=== PATIENT | male | born 1935 | race Caucasian/White ===

== ENCOUNTER → 2018-01-08 16:15 | Outpatient (CLI) | payer MEDICARE, OTHER, SELFPAY ==
--- NOTE | 2018-01-08 | DI.RAD.S_ITS ---
PROCEDURE: XR CHEST 2V INDICATIONS: COUGH TECHNIQUE: 2 views of the chest were acquired. COMPARISON: [facility], , XR CXR 2 VIEW, 01/07/2004, 14:35. FINDINGS: Surgical changes and devices: None. Lungs and pleura: No pleural effusions or pneumothorax. Scattered scarring and atelectasis bilaterally.. Mildly prominent opacity in the posterior lungs on the lateral view only. Presumed bilateral nipple shadows, left greater than right Mediastinum: Mediastinal contours are normal. Heart size is normal. Bones and chest wall: No suspicious bony abnormalities. Soft tissues appear unremarkable. IMPRESSION: Mild focal opacity in the posterior lung base on the lateral view only which could represent bronchopneumonia although technically nonspecific. If clinically warranted, repeat two-view chest radiographs in one month could be obtained after treatment to document resolution and exclude abnormal soft tissue. Presumed bibasilar nipple shadows although repeat chest radiographs with nipple markers could be obtained to exclude pulmonary nodule. Dictated by: Kale Lira M.D. on 01/08/2018 at 17:21 Approved by: Kale Lira M.D. on 01/08/2018 at 17:24
== END ==
PROVIDERS: Family Provider Family Medicine; PCP Family Medicine; Visit Provider Family Medicine
DX: R05 Cough (principal); J98.4 Other disorders of lung
CPT/HCPCS: 71046

== ENCOUNTER → 2018-03-22 10:28 | Outpatient (CLI) | payer MEDICARE, OTHER, SELFPAY ==
[2018-03-22 12:22] LABS: BUN Creatinine Ratio 16.4 (6-22); Blood Urea Nitrogen 18 mg/dL (9-20); Calcium 8.6 mg/dL (8.4-10.2); Carbon Dioxide 28 mmol/L (22-32); Chloride 102 mmol/L (98-107); Estimated Glomerular Filt Rate > 60.0 mL/min (>60); Glucose 108 mg/dL (80-110); HEMOLYSIS < 15 (0-50); Potassium 4.1 mmol/L (3.4-5.1); Sodium 140 mmol/L (137-145)
== END ==
PROVIDERS: Family Provider Family Medicine; PCP Family Medicine; Visit Provider Internal Medicine Cardiovascular Disease
DX: I48.0 Paroxysmal atrial fibrillation (principal)
CPT/HCPCS: 36415; 80048

== ENCOUNTER → 2018-09-22 09:55 | Outpatient (CLI) | payer MEDICARE, OTHER, SELFPAY ==
--- NOTE | 2018-09-22 09:58 | DI.RAD.S_ITS ---
PROCEDURE: XR CHEST 2V INDICATIONS: cough, congestion TECHNIQUE: 2 views of the chest were acquired. COMPARISON: [facility], CR, XR CHEST 2V, 01/08/2018, 15:55. FINDINGS: Surgical changes and devices: Interval placement of a left-sided cardiac pacer/defibrillator apparatus is evident. Lungs and pleura: Lungs are clear. No pleural effusions or pneumothorax. Mediastinum: Mediastinal contours are normal. Heart size is normal. Bones and chest wall: No suspicious bony abnormalities. Soft tissues appear unremarkable. IMPRESSION: No acute cardiopulmonary process is evident. Dictated by: Wilmar Llamas M.D. on 09/22/2018 at 9:20 Approved by: Wilmar Llamas M.D. on 09/22/2018 at 9:22
== END ==
PROVIDERS: Family Provider Family Medicine; PCP Family Medicine; Visit Provider Physician Assistant
DX: R05 Cough (principal); R09.89 Other specified symptoms and signs involving the circulatory and respiratory systems
CPT/HCPCS: 71046

== ENCOUNTER → 2018-09-26 10:28 | Outpatient (CLI) | payer MEDICARE, OTHER, SELFPAY ==
--- NOTE | 2018-09-26 10:29 | DI.RAD.S_ITS ---
PROCEDURE: XR CHEST 2V INDICATIONS: cough TECHNIQUE: 2 views of the chest were acquired. COMPARISON: [facility], CR, XR CHEST 2V, 09/22/2018, 10:09. FINDINGS: Surgical changes and devices: Left chest wall cardiac device leads are seen in the region of right atrium and right ventricle. Lungs and pleura: There is mild pulmonary vascular congestion. No focal infiltrate. No pleural effusions or pneumothorax. Mediastinum: Mediastinal contours are normal. Heart size is enlarged. Bones and chest wall: No suspicious bony abnormalities. Soft tissues appear unremarkable. IMPRESSION: Cardiomegaly and mild congestion. No focal infiltrate, pleural effusion or pneumothorax. Dictated by: Mandeep Raymundo M.D. on 09/26/2018 at 10:50 Approved by: Mandeep Raymundo M.D. on 09/26/2018 at 10:50
== END ==
PROVIDERS: Family Provider Family Medicine; PCP Family Medicine; Visit Provider Physician Assistant
DX: R05 Cough (principal); I51.7 Cardiomegaly; R09.89 Other specified symptoms and signs involving the circulatory and respiratory systems
CPT/HCPCS: 71046; 83880

== ENCOUNTER → 2018-09-26 11:24 | Outpatient (CLI) | payer MEDICARE, OTHER, SELFPAY ==
[2018-09-26 11:58] LABS: B Type Natriuretic Peptide 355 (<100)
== END ==
PROVIDERS: Family Provider Family Medicine; PCP Family Medicine; Visit Provider Physician Assistant
DX: I51.7 Cardiomegaly (principal)
CPT/HCPCS: 83880

== ENCOUNTER 2018-11-13 08:46 | Day surgery (SDC) | payer MEDICARE, OTHER, SELFPAY ==
[2018-11-13] MEDS: PROPARACAINE 0.5% OPHTH SOL 2 DROPS EYE-OP (09:45)
[2018-11-13] MEDS: CATARACT EYE COMPOUND (10 DROPS/SYRINGE) 3 DROPS EYE-OP ×3 (09:47→10:04)
[2018-11-13 09:51] VITALS: BP 127/75; PULSE 74; RESP 15; TEMP 36.3; O2SAT 95
[2018-11-13 09:55] VITALS: BMI 25.6
--- NOTE | 2018-11-13 10:39 | PM.PREOP ---
Pre-operative Note Interval Note History & Physical reviewed/Exam performed by Physician: No Changes to H&P: No
--- NOTE | 2018-11-13 10:40 | PM.OP.1 ---
Operative Date/Time/Diagnoses Pre-op diagnosis: Nuclear Cataract Left eye Post-op diagnosis: same Procedure & Clinicians Surgeon: Hardik Perla Anesthesia Type: MAC +/- and Sedation Operative Notes Procedure in detail: Patient brought to the operating suite. Tetracaine drops placed in the left eye. Marking instrument was used to dannie the vertical and horizontal meridians. Patient was prepped and draped in sterile manner. Wire lid speculum was placed in the eye. Marking instrument was used to dannie the 150 degree meridian. Betadine drops were placed on the eye. This was irrigated. Lidocaine jelly was placed on the eye. A paracentesis port was created with a side-port blade. 0.1 mL 1% preservative free lidocaine was injected into the anterior chamber. The anterior chamber was deepened with viscoelastic. 2.6 mm keratome was used to create a temporal clear corneal incision. Cystotome and Utrata forceps were used to create continuous tear capsulorrhexis. Balanced salt solution was used to hydro dissect the nucleus. The phacoemulsification handpiece was inserted and the nucleus was removed using the stop and chop technique. The irrigation aspiration handpiece was inserted and the remaining cortex was removed. Anterior chamber was deepened with viscoelastic. An Monique [id number] intraocular lens with a power of 24.0 was injected into the capsular bag. Irrigation aspiration handpiece was inserted and the remaining viscoelastic was removed. The lens was rotated to the 150 degree meridian. Incision was hydrated with balanced salt solution and found to be leak free with pressure with Weck-Maria Luisa sponges. 0.1 mL Vigamox injected anterior chamber. 0.3 mL Kenalog 10 mg was injected subconjunctivally. Lid speculum was removed. The patient left the operating room in excellent condition. Complications: none Condition: stable Disposition: same day surgery
--- NOTE | 2018-11-13 11:19 | SUR.OPER ---
Supine on eye stretcher, head on extension cradle secured with tape. Arms tucked at sides with blanket. Pillow under knees.
[2018-11-13] MEDS: PHENYLEPHRINE/LIDOCAINE VIAL (OR) 0.2 ML EYE-OP (11:20)
[2018-11-13] MEDS: LIDOCAINE JELLY 2% 5 ML 1 APPLIC TOP (11:21)
[2018-11-13] MEDS: MOXIFLOXACIN OPHTH DROPS 3 ML BOTTLE 2 DROPS INJ (11:21)
[2018-11-13] MEDS: TRIAMCINOLONE 50 MG/5 ML VIAL INJ (11:21)
[2018-11-13] MEDS: CHONDROIDTIN/SOD HYALURONATE 1.05 ML SYRINGE INTRAOCULA (11:21)
[2018-11-13] MEDS: TETRACAINE 0.5% OPHTH DROPS 4 ML 2 DROPS EYE-OP (11:22)
[2018-11-13] MEDS: BALANCED SALT IRRIG SOLN NO.2 500 ML, EPINEPHrine 1 MG IRR (11:22)
[2018-11-13 11:36] VITALS: BP 112/73; PULSE 70; RESP 15; TEMP 36.3; O2SAT 96
--- NOTE | 2018-11-13 12:36 | SUR.PHASEII ---
Pt kashia and mildly forgetful. Discharge instructions reviewed with patient and spouse
== END 2018-11-13 11:55 | disposition home or self-care (01) ==
LOC: OR 08:54
PROVIDERS: Family Provider Family Medicine; PCP Family Medicine; Visit Provider Ophthalmology
PROC: (CPT 66984; principal; 2018-11-13 10:45)
DX: H25.12 Age-related nuclear cataract, left eye (principal); I10 Essential (primary) hypertension
CPT/HCPCS: 66984; J0171; J2250; J3301; V2787

== ENCOUNTER → 2018-11-15 10:33 | Outpatient (CLI) | payer MEDICARE, OTHER, SELFPAY ==
[2018-11-15 11:37] LABS: Blood Urea Nitrogen 25 mg/dL (9-20); Calcium 8.8 mg/dL (8.4-10.2); Carbon Dioxide 25 mmol/L (22-32); Chloride 103 mmol/L (98-107); Estimated Glomerular Filt Rate > 60.0 mL/min (>60); Glucose 128 mg/dL (80-110); HEMOLYSIS 16 (0-50); Potassium 4.2 mmol/L (3.4-5.1); Sodium 138 mmol/L (137-145)
== END ==
PROVIDERS: Family Provider Family Medicine; PCP Family Medicine; Visit Provider Internal Medicine Cardiovascular Disease
DX: I51.9 Heart disease, unspecified (principal)
CPT/HCPCS: 36415; 80048

== ENCOUNTER → 2018-12-15 12:28 | Outpatient (CLI) | payer MEDICARE, OTHER, SELFPAY | PROVIDERS: PCP Family Medicine; Visit Provider Family Medicine | DX: R51 Headache (principal); Z53.9 Procedure and treatment not carried out, unspecified reason ==

== ENCOUNTER → 2018-12-21 14:54 | Outpatient (CLI) | payer MEDICARE, OTHER, SELFPAY ==
--- NOTE | 2018-12-21 | DI.CT.S_ITS ---
PROCEDURE: CT HEAD/BRAIN WO/W CON INDICATIONS: Cognitive memory issues. TECHNIQUE: 4.5 mm thick angled axial sections acquired from the foramen magnum to the vertex both before and after the administration of intravenous contrast, with coronal and sagittal reformats. For radiation dose reduction, the following was used: automated exposure control, adjustment of mA and/or kV according to patient size. COMPARISON: [facility], CT, HEAD W&WO CONTRAST, 01/10/2017, 8:47. FINDINGS: Image quality: Excellent. CSF spaces: Basal cisterns are patent. No extra-axial fluid collections. Ventricles are symmetric in size and shape. Brain: No midline shift. No intracranial bleeds or masses. No abnormal intracranial enhancement. There is mild cerebral volume loss for age. There are mild to moderate periventricular white matter chronic small vessel ischemic changes. There is intracranial internal carotid artery atherosclerosis. There is normal contrast enhancement of the major central cerebral vessels. The dural sinuses demonstrate normal postcontrast enhancement. Skull and face: Calvarium and visualized facial bones appear intact, without suspicious lesions. Sinuses: Visualized sinuses are clear. Postsurgical changes compatible with right canal wall up partial mastoidectomy noted. Scattered opacities are noted in the mastoid air cells bilaterally. IMPRESSION: 1. No acute intracranial disease process. 2. No abnormal intracranial mass or suspicious postcontrast enhancement. 3. No areas of acute or chronic infarction. 3. Mild, diffuse cerebral volume loss. 4. Mild to moderate periventricular and subcortical white matter chronic microvascular ischemic change. 5. Scattered bilateral mastoid air cell opacities. Please correlate with direct physical findings to differentiate serous fluid from an inflammatory process. Dictated by: Mishel Villalobos MD, PhD on 12/21/2018 at 16:51 Approved by: Mishel Villalobos MD, PhD on 12/21/2018 at 16:58
[2018-12-21 15:41] LABS: BUN Creatinine Ratio 25.8 (6-22); Blood Urea Nitrogen 31 mg/dL (9-20); Estimated Glomerular Filt Rate 57.7 mL/min (>60)
== END ==
PROVIDERS: PCP Family Medicine; Visit Provider Family Medicine
DX: R41.89 Other symptoms and signs involving cognitive functions and awareness (principal)
CPT/HCPCS: 36415; 70470; 82565; 84520; Q9967

== ENCOUNTER → 2018-12-26 15:55 | Outpatient (CLI) | payer MEDICARE, OTHER, SELFPAY ==
--- NOTE | 2018-12-26 | DI.RAD.S_ITS ---
PROCEDURE: XR LUMBAR SPINE 2-3V INDICATIONS: spine pain TECHNIQUE: 3 views of the lumbar spine were acquired. COMPARISON: None. FINDINGS: Bones: 5 [id number] vertebrae are present. There is normal bony alignment. No vertebral body compression fractures. No suspicious bony lesions. 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 Soft tissues: Overlying bowel gas pattern is normal. No suspicious soft tissue calcifications. IMPRESSION: The spine appears relatively normal over the upper third, shows only a mild degree of degeneration at the middle third and demonstrates mild to moderate degeneration at the lower third where spinal and foraminal stenosis could be present at L5-S1. Dictated by: Joel Torres M.D. on 12/26/2018 at 16:45 Approved by: Joel Torres M.D. on 12/26/2018 at 16:46
== END ==
PROVIDERS: PCP Family Medicine; Visit Provider Family Medicine
DX: M54.9 Dorsalgia, unspecified (principal); M51.37 Other intervertebral disc degeneration, lumbosacral region; M47.817 Spondylosis without myelopathy or radiculopathy, lumbosacral region
CPT/HCPCS: 72100

== ENCOUNTER → 2019-04-04 11:56 | Outpatient (CLI) | payer MEDICARE, OTHER, SELFPAY ==
[2019-04-04 13:44] LABS: Free T3, Triiodothyronine Free 2.94 pg/mL (2.77-5.27); Free T4, Direct Thyroxine 1.11 ng/dL (0.78-2.19)
[2019-04-04 13:57] LABS: Thyroid Stimulating Hormone 2.27 uIU/mL (0.47-4.68)
== END ==
PROVIDERS: PCP Family Medicine; Visit Provider Family Medicine
DX: R89.1 Abnormal level of hormones in specimens from other organs, systems and tissues (principal); E78.00 Pure hypercholesterolemia, unspecified
CPT/HCPCS: 36415; 84439; 84443; 84481

== ENCOUNTER 2020-03-20 09:34 | Emergency (ER) | payer MEDICARE, OTHER, SELFPAY ==
[2020-03-20 09:35] VITALS: BP 176/81; PULSE 69; RESP 15; TEMP 36.7; O2SAT 94; BMI 24.3
[2020-03-20] MEDS: LIDOCAINE 2% (UROJET) 5 ML GEL TOP (10:10)
[2020-03-20 10:28] LABS: Appearance Urine UA CLOUDY; Bacteria Urine None Seen; Bilirubin Urine UA NEGATIVE (NEGATIVE); Color Urine UA YELLOW; Glucose Urine UA NEGATIVE (Negative); Ketones Urine UA NEGATIVE (NEGATIVE); Leukocyte Esterase Urine UA 1+ (NEGATIVE); Nitrite Urine UA NEGATIVE (Negative); Occult Blood Urine UA 3+ (Negative); Protein Urine UA NEGATIVE (Negative); Specific Gravity Urine UA 1.015 (1.000-1.035); Urobilinogen Urine UA 0.2 E.U./dL (0.2)
--- NOTE | 2020-03-20 10:41 | ED_ITS ---
HPI - Male Genitourinary General Chief complaint: Urogenital-Male Stated complaint: prostate problem/clogged up/catherder causing clot Time Seen by Provider: 03/20/20 10:09 Source: patient and family Mode of arrival: Ambulatory Limitations: no limitations History of Present Illness HPI Narrative: This is a 85-year-old male who comes in with difficulty urinating. Patient states he has an enlarged prostate, he saw urology about getting a possible TURP but was recommended to try self catheterization which he has done several times and had increasing numbers of bloody urination and increasing difficulty with urination. With the most recent attempt to last night he was unable to drain his bladder and continued to have some blood clots. Patient does not take any blood thinners. He is on tamsulosin and nitrof urantoin 50 mg daily for several years. He states he was told that he was not a good candidate for a TURP but describes which may be a suprapubic catheter to be placed through the urologist or possibly an ostomy. Patient was had quite a bit of abdominal pain and after having a catheter placed in the emergency department feels significantly better. No fevers, no nausea vomiting, no back or flank pain. His abdominal pain has resolved. He is draining dark bloody urine with no clots present and had put out approximately 1 L into the catheter bag when I evaluated the patient. Patient was on oral antibiotics 3 weeks ago for UTI and had urinary retention at that time. Related Data Home Medications Medication Instructions Recorded Confirmed amlodipine 10 mg tablet 10 mg PO DAILY 09/22/18 09/26/18 nitrofurantoin macrocrystal 50 mg 50 mg PO BEDTIME 09/22/18 09/26/18 capsule oxycodone-acetaminophen 5 mg-325 1 tab PO QID PRN tab 09/22/18 09/26/18 mg tablet sildenafil 100 mg tablet 50 mg PO DAILY PRN tab 09/22/18 09/26/18 tamsulosin 0.4 mg capsule 0.4 mg PO DAILY 09/22/18 09/26/18 testosterone cypionate 200 mg/mL 100 mg IM QWEEK ml 09/22/18 09/26/18 intramuscular oil Previous Rx's Medication Instructions Recorded benzonatate 100 mg capsule 100 mg PO BEDTIME #20 cap 09/26/18 ipratropium 20 mcg-albuterol 100 2 puff INHALATION Q6H #4 gram 09/26/18 mcg/actuation mist for inhalation Allergies Allergy/AdvReac Type Severity Reaction Status Date / Time No Known Drug Allergies Allergy Verified 03/20/20 09:55 Review of Systems Review of Systems ROS Unobtainable: All systems reviewed & are unremarkable except as noted in HPI and below Patient History Medical History Enlarged prostate History of recurrent UTI (urinary tract infection) Hypertension Pacemaker Social History household members: spouse Smoking Status: Former smoker Smoking Status: Former smoker alcohol intake frequency: 0-2 drinks per day Substance Use Type: does not use Exam Narrative Exam Narrative: GENERAL: Alert and oriented x three, well-nourished, well- appearing elderly male in mild distress. Patient was seen after urinary c atheter was placed HEENT: Head normocephalic, atraumatic, EOMI, pupils reactive, face symmetric, moist mucous membranes NECK: Supple, full range of motion CARDIOVASCULAR: Regular rate and rhythm without murmurs, rubs or gallops. RESPIRATORY: Breath sounds equal bilaterally, no wheezes rales or rhonchi. ABDOMEN: Soft, nontender. Normoactive bowel sounds all 4 quadrants. No guarding or rebound, rigidity, no mass : No CVA tenderness, King catheter draining dark urine with a bloody tinge. No large clots are appreciated. EXTREMITIES: Normal range of motion, no clubbing or edema. Neurovascularly intact NEUROLOGICAL: Cranial nerves II through XII grossly intact. Moving all extremities SKIN: Warm, dry, no petechiae, no rashes or lesions. Initial Vital Signs Initial Vital Signs: Vital Signs Temperature 98.0 F 03/20/20 09:35 Pulse Rate 69 03/20/20 09:35 Respiratory Rate 15 03/20/20 09:35 Blood Pressure 176/81 H 03/20/20 09:35 Pulse Oximetry 94 03/20/20 09:35 Course Orders Ordered: ED Orders 03/20/20 10:20 Urinalysis and Microscopic Stat Urine Culture Stat 03/20/20 11:37 Basic Metabolic Panel Stat Complete Blood Count AUTO DIFF Stat Urine Microscopic Stat Discontinued Medications Lidocaine HCl (Lidocaine 2% (Urojet) 5 Ml Gel) 5 ml TOP NOW ONE Stop: 03/20/20 10:02 Last Admin: 03/20/20 10:10 Dose: 5 ml Documented by: SAIGE Vital Signs Vital signs: Vital Signs - 8 hr 03/20/20 12:03 Pulse Rate 84 Respiratory Rate 18 Blood Pressure 160/72 H Pulse Oximetry 94 MDM - Male Genitourinary Lab Data Attestation: I reviewed the patient's lab results. Result diagrams: 03/20/20 11:37 03/20/20 11:37 Labs: Lab Results 03/20/20 03/20/20 03/20/20 Range/Units 10:20 11:37 11:37 WBC 8.9 (4.5-11.0) X10^3/uL RBC 5.33 (4.5-5.9) X10^6/uL Hgb 17.8 H (13.5-17.5) g/dL Hct 52.3 (41-53) % MCV 98.1 (80-100) fL MCH 33.3 (26-34) PG MCHC 34.0 (30-36) % RDW 14.2 (11.6-14.8) % Plt Count 248 (150-400) X10^3/uL Neut % (Auto) 81.6 H (50-75) % Lymph % (Auto) 9.4 L (25-40) % Alexander % (Auto) 8.4 (3-14) % Eos % (Auto) 0.2 L (2-4) % Baso % (Auto) 0.4 (0-2) % Neut # (Auto) 7300 H (2690-3435) /uL Lymph # (Auto) 800 L (5746-1457) /uL Alexander # (Auto) 800 (0-900) /uL Eos # (Auto) 0 (0-450) /uL Baso # (Auto) 0 (0-100) /uL Sodium 135 L (137-145) mmol/L Potassium 4.6 (3.4-5.1) mmol/L Chloride 105 (98-107) mmol/L Carbon Dioxide 25 (22-32) mmol/L BUN 19 (9-20) mg/dL Creatinine 1.06 (0.66-1.25) mg/dL Estimated GFR > 60.0 (>60) mL/min BUN/Creatinine Ratio 17.9 (6-22) Glucose 100 (80-110) mg/dL Calcium 8.5 (8.4-10.2) mg/dL Urine Color Yellow Urine Appearance Cloudy Urine pH 6.0 (4.5-8.0) Ur Specific Otis 1.015 (1.000-1.035) Urine Protein Negative (Negative) Urine Glucose (UA) Negative (Negative) g/dL Urine Ketones Negative (NEGATIVE) Urine Occult Blood 3+ H (Negative) Urine Nitrate Negative (Negative) Urine Bilirubin Negative (NEGATIVE) Urine Urobilinogen 0.2 (0.2) E.U./dL Ur Leukocyte Esterase 1+ H (NEGATIVE) Urine RBC 10-30/hpf H (0-5/HPF) Urine WBC 5-10/hpf H (0-5/HPF) Urine Bacteria None seen (None) Ur Culture Indicated? Specimen cultured 03/20/20 Range/Units 11:37 WBC (4.5-11.0) X10^3/uL RBC (4.5-5.9) X10^6/uL Hgb (13.5-17.5) g/dL Hct (41-53) % MCV (80-100) fL MCH (26-34) PG MCHC (30-36) % RDW (11.6-14.8) % Plt Count (150-400) X10^3/uL Neut % (Auto) (50-75) % Lymph % (Auto) (25-40) % Alexander % (Auto) (3-14) % Eos % (Auto) (2-4) % Baso % (Auto) (0-2) % Neut # (Auto) (2405-0278) /uL Lymph # (Auto) (4988-7362) /uL Alexander # (Auto) (0-900) /uL Eos # (Auto) (0-450) /uL Baso # (Auto) (0-100) /uL Sodium (137-145) mmol/L Potassium (3.4-5.1) mmol/L Chloride (98-107) mmol/L Carbon Dioxide (22-32) mmol/L BUN (9-20) mg/dL Creatinine (0.66-1.25) mg/dL Estimated GFR (>60) mL/min BUN/Creatinine Ratio (6-22) Glucose (80-110) mg/dL Calcium (8.4-10.2) mg/dL Urine Color Urine Appearance Urine pH (4.5-8.0) Ur Specific Otis (1.000-1.035) Urine Protein (Negative) Urine Glucose (UA) (Negative) g/dL Urine Ketones (NEGATIVE) Urine Occult Blood (Negative) Urine Nitrate (Negative) Urine Bilirubin (NEGATIVE) Urine Urobilinogen (0.2) E.U./dL Ur Leukocyte Esterase (NEGATIVE) Urine RBC 30-100/hpf H (0-5/HPF) Urine WBC 10-30/hpf H (0-5/HPF) Urine Bacteria None seen (None) Ur Culture Indicated? Specimen cultured Urine Dip Bedside Urine Glucose Negative Bedside Urine Bilirubin - Negative Bedside Urine Ketone - Negative Urine Specific Otis 1.020 Bedside Urine Occult Blood +++ Bedside Urine pH 6 Bedside Urine Protein +/- 15 Bedside Urine Urobilinogen - Negative Bedside Urine Nitrite - Negative Bedside Urine Leukocytes ++ 125 Esterase MDM Narrative Medical decision making narrative: Patient comes in with urinary retention. King catheter was placed and had significant improvement after L was drained. Labs do not show any major abnormalities urine shows leukocyte esterase but no nitrates and sent for urine culture which is pending and patient and I both discussed and plan to wait for results before starting antibiotics. Discharge Plan Departure Patient Disposition: Home Clinical Impression: Acute urinary retention, Benign prostatic hyperplasia Instructions: How to Care for Your King Catheter -- Male Activity Restrictions/Additional Instructions: Follow-up with your urologist, called today or Monday morning for an appointment. Your serum or blood labs today do not show any major abnormalities other than your hemoglobin being slightly elevated. Continue home medications as prescribed Your urine today shows possible infection, I recommend waiting for urine culture in order to select the most appropriate antibiotic choice. If positive you will receive a phone call. Return to the ER for fevers, lightheadedness, passing out, new or worsening abdominal or flank pain Prescriptions: No Action benzonatate 100 mg capsule 100 mg PO BEDTIME Qty: 20 RF: 0 Combivent Respimat 20-100 mcg/actuation mist 2 puff INHALATION Q6H Qty: 4 RF: 1 nitrofurantoin macrocrystal 50 mg capsule 50 mg PO BEDTIME RF: 0 amlodipine [Norvasc] 10 mg tablet 10 mg PO DAILY RF: 0 tamsulosin 0.4 mg capsule 0.4 mg PO DAILY RF: 0 testosterone cypionate 200 mg/mL oil 100 mg IM QWEEK RF: 0 oxycodone-acetaminophen [Percocet] 5-325 mg tablet 1 tab PO QID PRNRF: 0 sildenafil [Viagra] 100 mg tablet 50 mg PO DAILY PRNRF: 0 Referrals: Fidel Handy MD [Primary Care Provider] -
[2020-03-20 10:42] LABS: Culture Indicated Urine Specimen Cultured; RBC Urine 10-30/HPF (0-5/HPF); WBC Urine 5-10/HPF (0-5/HPF)
[2020-03-20 11:44] LABS: Add Manual Diff / Slide Review NO; Basophils Absolute Auto 0 /uL (0-100); Basophils Percent Auto 0.4 % (0-2); Eosinophils Absolute Auto 0 /uL (0-450); Eosinophils Percent Auto 0.2 % (2-4); Hematocrit 52.3 % (41-53); Hemoglobin 17.8 g/dL (13.5-17.5); Lymphocytes Absolute Auto 800 /uL (1100-4500); Lymphocytes Percent Auto 9.4 % (25-40); Mean Corpuscular Hemoglobin 33.3 PG (26-34); Mean Corpuscular Volume 98.1 fL (80-100); Monocytes Absolute Auto 800 /uL (0-900); Monocytes Percent Auto 8.4 % (3-14); Neutrophils Absolute Auto 7300 /uL (1500-7000); Neutrophils Percent Auto 81.6 % (50-75); Platelet Count 248 X10^3/uL (150-400); Red Blood Cell Count 5.33 X10^6/uL (4.5-5.9); Red Cell Distribution Width 14.2 % (11.6-14.8); White Blood Cell Count 8.9 X10^3/uL (4.5-11.0)
[2020-03-20 11:58] LABS: BUN Creatinine Ratio 17.9 (6-22); Blood Urea Nitrogen 19 mg/dL (9-20); Calcium 8.5 mg/dL (8.4-10.2); Carbon Dioxide 25 mmol/L (22-32); Chloride 105 mmol/L (98-107); Estimated Glomerular Filt Rate > 60.0 mL/min (>60); Glucose 100 mg/dL (80-110); HEMOLYSIS < 15 (0-50); Potassium 4.6 mmol/L (3.4-5.1); Sodium 135 mmol/L (137-145)
[2020-03-20 12:00] LABS: Bacteria Urine None Seen
[2020-03-20 12:03] VITALS: BP 160/72; PULSE 84; RESP 18; O2SAT 94
[2020-03-20 12:11] LABS: Culture Indicated Urine Specimen Cultured; RBC Urine 30-100/HPF (0-5/HPF); WBC Urine 10-30/HPF (0-5/HPF)
--- NOTE | 2020-03-20 12:36 | PC.NURSE ---
dalton bag switched to a leg bag for patient's discharge. instructions given to and patient about dalton care. pt still continues to have blood around his meatus. pt verbalized and demonstrated how to empty cath.
== END 2020-03-20 12:39 | disposition home or self-care (01) ==
PROVIDERS: Emergency Provider Emergency Medicine; PCP Family Medicine
DX: N40.0 Benign prostatic hyperplasia without lower urinary tract symptoms (principal)
CPT/HCPCS: 36415; 51701; 51798; 80048; 81001; 81003; 81015; 85025; 87077; 87086; 87186; 99283

== ENCOUNTER 2020-04-06 14:33 | Emergency (ER) | payer MEDICARE, OTHER, SELFPAY ==
[2020-04-06 14:36] VITALS: BP 171/73; PULSE 73; RESP 20; TEMP 36.4; O2SAT 96
== END 2020-04-06 16:51 | disposition left against medical advice (07) ==
PROVIDERS: Emergency Provider Emergency Medicine; PCP Family Medicine
CPT/HCPCS: 99281

== ENCOUNTER 2020-04-22 07:05 | Inpatient (IN) | payer MEDICARE, OTHER, SELFPAY ==
[2020-04-22] VITALS (24 sets, daily range): BP systolic 102–130; BP diastolic 51–91; PULSE 69–110; RESP 16–20; TEMP 36.3–38; O2SAT 93–97; BMI 25.0
--- NOTE | 2020-04-22 07:15 | DI.RAD.S_ITS ---
PROCEDURE: XR CHEST 1V INDICATIONS: suspected sepsis TECHNIQUE: One view of the chest was acquired. COMPARISON: [facility], CR, XR CHEST 2V, 09/26/2018, 10:37. FINDINGS: Surgical changes and devices: A cardiac pacemaker is seen with pulse generator in the left chest. Lungs and pleura: There is mild prominence of the central pulmonary vasculature. No definite focal airspace opacity is seen. No pleural effusions or pneumothorax. Mediastinum: Mediastinal contours appear normal. Heart size is mildly enlarged. Bones and chest wall: No suspicious bony lesions. Overlying soft tissues appear unremarkable. IMPRESSION: Mild cardiomegaly with prominence of the central pulmonary vasculature may indicate mild congestive heart failure. Dictated by: Pj Reyes M.D. on 04/22/2020 at 8:06 Approved by: Pj Reyes M.D. on 04/22/2020 at 8:10
--- NOTE | 2020-04-22 07:19 | ED_ITS ---
HPI - Weakness General Chief complaint: Weakness Stated complaint: Weakness Time Seen by Provider: 04/22/20 07:13 Source: EMS Mode of arrival: EMS Limitations: no limitations History of Present Illness HPI Narrative: Patient is an 85-year-old male who presents with weakness. He is self cathing multiple times a day he did not want a permanent catheter. He is scheduled to have a prostate surgery soon for BPH. His states that he was in his normal state of health until this morning when she could not get him out of bed. He states he is extremely weak he is having some back pain he felt like his balance was off. He is noted to be febrile in the ED. he denies any cough chest pain dizziness, he has no numbness tingling or unilateral weakness. No speech difficulty or facial droop. MD Complaint: generalized weakness Related Data Home Medications Medication Instructions Recorded Confirmed nitrofurantoin macrocrystal 50 mg 50 mg PO BEDTIME 09/22/18 04/22/20 capsule tamsulosin 0.4 mg capsule 0.4 mg PO DAILY 09/22/18 04/22/20 Allergies Allergy/AdvReac Type Severity Reaction Status Date / Time No Known Drug Allergies Allergy Verified 04/22/20 07:14 Review of Systems Review of Systems ROS Unobtainable: All systems reviewed & are unremarkable except as noted in HPI and below Constitutional Constitutional: Reports fatigue and Reports fever(s) Eyes Eyes: Denies change in vision, Denies eye discharge, Denies irritation and Denies loss of vision ENT Ears, Nose, Mouth, and Throat: Denies change in voice, Denies dizziness, Denies neck pain and Denies sore throat Cardiovascular Cardiovascular: Denies chest pain, Denies chest pain at rest, Denies pedal edema, Denies lightheadedness and Denies dyspnea Respiratory Respiratory: Denies cough and Denies dyspnea Gastrointestinal Gastrointestinal: Denies abdominal pain, Denies change in bowel habits, Denies diarrhea, Denies nausea and Denies vomiting Genitourinary Genitourinary: Reports as per HPI Genitourinary: Reports as per HPI Musculoskeletal Musculoskeletal: Reports back pain, Denies loss of height and Denies neck pain Integumentary/Breasts Skin/Breast: Denies pruritus, Denies erythema, Denies rash and Denies wounds Neurologic Neurologic: Denies dizziness, Reports lack of coordination (balance issue) and Denies loss of vision Endocrine Endocrine: Reports fatigue Patient History Medical History Enlarged prostate History of recurrent UTI (urinary tract infection) Hypertension Pacemaker Social History household members: spouse Smoking Status: Former smoker Smoking Status: Former smoker alcohol intake frequency: 0-2 drinks per day Alcohol type: wine Substance Use Type: does not use Exam Initial Vital Signs Initial Vital Signs: Vital Signs Temperature 100.4 F H 04/22/20 07:12 Pulse Rate 77 04/22/20 07:12 Respiratory Rate 18 04/22/20 07:12 Blood Pressure 124/59 L 04/22/20 07:12 Pulse Oximetry 94 04/22/20 07:12 GENERAL: Alert pleasant 85-year-old male and in no acute distress. HEENT: Head atraumatic,EOMI, pupils reactive, face symmetric, moist mucous membranes CARDIOVASCULAR: Regular rate and rhythm without murmurs, rubs or gallops. RESPIRATORY: Breath sounds equal bilaterally, no wheezes rales or rhonchi. ABDOMEN: Soft, nontender. Normoactive bowel sounds all 4 quadrants. No guarding or rebound. EXTREMITIES: Normal range of motion, no clubbing or edema. Neurovascularly intact NEUROLOGICAL: Alert and oriented x4.Normal gait and speech. Cranial nerves II through XII grossly intact. Good [id number] strength equal bilaterally no dysarthria or dysphasia sensation intact equally and bilaterally SKIN: Warm, dry, no laceration, no petechiae, no rashes or lesions. Scores qSOFA Altered Mental Status (GCS <15): No Respiratory rate greater than/equal to 22: No Systolic blood pressure less than or equal to 100: No qSOFA Total: 0 0-1 Not High Risk 1-3 High risk Course Orders Ordered: ED Orders 04/22/20 08:40 Urinalysis and Microscopic Stat Urine Culture Stat 04/22/20 09:19 EKG-12 Lead Stat Sodium Chloride (Normal Saline 0.9%) 1,000 mls @ 125 mls/hr IV CONT YOJANA Last Infusion: 04/22/20 13:51 Dose: 0 mls/hr Documented by: Admin: 04/22/20 11:07 Dose: 125 mls/hr Documented by: AALIYAH Discontinued Medications Acetaminophen (Acetaminophen 325 Mg Tablet) 975 mg PO NOW ONE Stop: 04/22/20 07:43 Last Admin: 04/22/20 08:25 Dose: 975 mg Documented by: AALIYAH Sodium Chloride (Normal Saline 0.9%) 1,000 mls @ 1,000 mls/hr IV BOLUS ONE Stop: 04/22/20 08:14 Last Infusion: 04/22/20 09:09 Dose: 0 mls/hr Documented by: Admin: 04/22/20 07:27 Dose: 1,000 mls/hr Documented by: AALIYAH Piperacillin/Tazobactam/Dextrose (Zosyn) 3.375 gm in 50 mls @ 100 mls/hr IV NOW ONE Stop: 04/22/20 08:26 Last Infusion: 04/22/20 09:03 Dose: 0 mls/hr Documented by: Admin: 04/22/20 08:25 Dose: 100 mls/hr Documented by: AALIYAH Vancomycin HCl/Dextrose (Vancomycin) 1,500 mg in 300 mls @ 200 mls/hr IV NOW ONE Stop: 04/22/20 09:27 Last Infusion: 04/22/20 10:44 Dose: 0 mls/hr Documented by: Admin: 04/22/20 08:51 Dose: 200 mls/hr Documented by: AALIYAH Vital Signs Vital signs: Vital Signs - 8 hr 04/22/20 09:30 04/22/20 10:00 04/22/20 10:30 Pulse Rate 71 70 70 Respiratory Rate Blood Pressure 108/53 L 106/55 L 102/55 L Pulse Oximetry 94 94 95 04/22/20 11:00 04/22/20 11:30 04/22/20 12:00 Pulse Rate 70 70 70 Respiratory Rate 20 Blood Pressure 102/51 L 107/51 L 105/52 L Pulse Oximetry 94 94 94 04/22/20 12:30 04/22/20 13:00 Pulse Rate 70 70 Respiratory Rate Blood Pressure 109/53 L 104/56 L Pulse Oximetry 94 95 MDM - Weakness Lab Data Attestation: I reviewed the patient's lab results. Result diagrams: 04/22/20 07:17 04/22/20 07:17 Labs: Lab Results 1204/22/20 04/22/20 Range/Units 07:17 07:17 07:17 WBC 19.3 H (4.5-11.0) X10^3/uL RBC 5.04 (4.5-5.9) X10^6/uL Hgb 16.5 (13.5-17.5) g/dL Hct 49.8 (41-53) % MCV 98.9 (80-100) fL MCH 32.7 (26-34) PG MCHC 33.1 (30-36) % RDW 14.5 (11.6-14.8) % Plt Count 235 (150-400) X10^3/uL Neut % (Auto) 95.9 H (50-75) % Lymph % (Auto) 1.0 L (25-40) % [place] % (Auto) 2.7 L (3-14) % Eos % (Auto) 0.0 L (2-4) % Baso % (Auto) 0.4 (0-2) % Neut # (Auto) 77686 H (1632-7732) /uL Lymph # (Auto) 200 L (4015-9026) /uL [place] # (Auto) 500 (0-900) /uL Eos # (Auto) 0 (0-450) /uL Baso # (Auto) 100 (0-100) /uL PT 14.8 H (10.1-12.7) SECONDS INR 1.3 (0.9-1.3) APTT 29 (26.4-36.2) SECONDS Sodium (137-145) mmol/L Potassium (3.4-5.1) mmol/L Chloride (98-107) mmol/L Carbon Dioxide (22-32) mmol/L BUN (9-20) mg/dL Creatinine (0.66-1.25) mg/dL Estimated GFR (>60) mL/min BUN/Creatinine Ratio (6-22) Glucose (80-110) mg/dL Lactate (0.7-2.1) mmol/L Calcium (8.4-10.2) mg/dL Total Bilirubin (0.2-1.3) mg/dL AST (17-59) IU/L ALT (<50) IU/L Alkaline Phosphatase (38-126) U/L Total Creatine Kinase (55-170) U/L CK-MB (CK-2) CK-MB (CK-2) Rel Index Troponin I (0.01-0.034) ng/mL Total Protein (6.3-8.2) g/dL Albumin (3.5-5.0) g/dL Globulin (1.7-4.1) g/dL Albumin/Globulin Ratio (1.0-2.8) Lipase (23-300) U/L Procalcitonin 0.87 H (<0.5) ng/mL Urine Color Urine Appearance Urine pH (4.5-8.0) Ur Specific [place] (1.000-1.035) Urine Protein (Negative) Urine Glucose (UA) (Negative) g/dL Urine Ketones (NEGATIVE) Urine Occult Blood (Negative) Urine Nitrate (Negative) Urine Bilirubin (NEGATIVE) Urine Urobilinogen (0.2) E.U./dL Ur Leukocyte Esterase (NEGATIVE) Urine RBC (0-5/HPF) Urine WBC (0-5/HPF) Urine Bacteria (None) Ur Culture Indicated? COVID-19 PCR (Negative) 04/22/20 04/22/20 04/22/20 Range/Units 07:17 07:17 08:05 WBC (4.5-11.0) X10^3/uL RBC (4.5-5.9) X10^6/uL Hgb (13.5-17.5) g/dL Hct (41-53) % MCV (80-100) fL MCH (26-34) PG MCHC (30-36) % RDW (11.6-14.8) % Plt Count (150-400) X10^3/uL Neut % (Auto) (50-75) % Lymph % (Auto) (25-40) % [place] % (Auto) (3-14) % Eos % (Auto) (2-4) % Baso % (Auto) (0-2) % Neut # (Auto) (9962-3077) /uL Lymph # (Auto) (1533-5053) /uL [place] # (Auto) (0-900) /uL Eos # (Auto) (0-450) /uL Baso # (Auto) (0-100) /uL PT (10.1-12.7) SECONDS INR (0.9-1.3) APTT (26.4-36.2) SECONDS Sodium 134 L (137-145) mmol/L Potassium 4.0 (3.4-5.1) mmol/L Chloride 103 (98-107) mmol/L Carbon Dioxide 25 (22-32) mmol/L BUN 24 H (9-20) mg/dL Creatinine 1.22 (0.66-1.25) mg/dL Estimated GFR 56.3 L (>60) mL/min BUN/Creatinine Ratio 19.7 (6-22) Glucose 163 H (80-110) mg/dL Lactate 3.6 H (0.7-2.1) mmol/L Calcium 8.6 (8.4-10.2) mg/dL Total Bilirubin 1.7 H (0.2-1.3) mg/dL AST 30 (17-59) IU/L ALT 25 (<50) IU/L Alkaline Phosphatase 85 (38-126) U/L Total Creatine Kinase 48 L (55-170) U/L CK-MB (CK-2) TNP CK-MB (CK-2) Rel Index TNP Troponin I 0.042 H (0.01-0.034) ng/mL Total Protein 7.2 (6.3-8.2) g/dL Albumin 3.7 (3.5-5.0) g/dL Globulin 3.5 (1.7-4.1) g/dL Albumin/Globulin Ratio 1.1 (1.0-2.8) Lipase 17 L (23-300) U/L Procalcitonin (<0.5) ng/mL Urine Color Urine Appearance Urine pH (4.5-8.0) Ur Specific [place] (1.000-1.035) Urine Protein (Negative) Urine Glucose (UA) (Negative) g/dL Urine Ketones (NEGATIVE) Urine Occult Blood (Negative) Urine Nitrate (Negative) Urine Bilirubin (NEGATIVE) Urine Urobilinogen (0.2) E.U./dL Ur Leukocyte Esterase (NEGATIVE) Urine RBC (0-5/HPF) Urine WBC (0-5/HPF) Urine Bacteria (None) Ur Culture Indicated? COVID-19 PCR Negative (Negative) 04/22/20 04/22/20 Range/Units 08:40 09:45 WBC (4.5-11.0) X10^3/uL RBC (4.5-5.9) X10^6/uL Hgb (13.5-17.5) g/dL Hct (41-53) % MCV (80-100) fL MCH (26-34) PG MCHC (30-36) % RDW (11.6-14.8) % Plt Count (150-400) X10^3/uL Neut % (Auto) (50-75) % Lymph % (Auto) (25-40) % [place] % (Auto) (3-14) % Eos % (Auto) (2-4) % Baso % (Auto) (0-2) % Neut # (Auto) (9430-0844) /uL Lymph # (Auto) (0499-1631) /uL [place] # (Auto) (0-900) /uL Eos # (Auto) (0-450) /uL Baso # (Auto) (0-100) /uL PT (10.1-12.7) SECONDS INR (0.9-1.3) APTT (26.4-36.2) SECONDS Sodium (137-145) mmol/L Potassium (3.4-5.1) mmol/L Chloride (98-107) mmol/L Carbon Dioxide (22-32) mmol/L BUN (9-20) mg/dL Creatinine (0.66-1.25) mg/dL Estimated GFR (>60) mL/min BUN/Creatinine Ratio (6-22) Glucose (80-110) mg/dL Lactate 1.7 (0.7-2.1) mmol/L Calcium (8.4-10.2) mg/dL Total Bilirubin (0.2-1.3) mg/dL AST (17-59) IU/L ALT (<50) IU/L Alkaline Phosphatase (38-126) U/L Total Creatine Kinase (55-170) U/L CK-MB (CK-2) CK-MB (CK-2) Rel Index Troponin I (0.01-0.034) ng/mL Total Protein (6.3-8.2) g/dL Albumin (3.5-5.0) g/dL Globulin (1.7-4.1) g/dL Albumin/Globulin Ratio (1.0-2.8) Lipase (23-300) U/L Procalcitonin (<0.5) ng/mL Urine Color Yellow Urine Appearance Clear Urine pH 7.0 (4.5-8.0) Ur Specific [place] 1.010 (1.000-1.035) Urine Protein Trace H (Negative) Urine Glucose (UA) Negative (Negative) g/dL Urine Ketones Negative (NEGATIVE) Urine Occult Blood 2+ H (Negative) Urine Nitrate Negative (Negative) Urine Bilirubin Negative (NEGATIVE) Urine Urobilinogen 0.2 (0.2) E.U./dL Ur Leukocyte Esterase 3+ H (NEGATIVE) Urine RBC 5-10/hpf H (0-5/HPF) Urine WBC >100/hpf H (0-5/HPF) Urine Bacteria Many (>30) H (None) Ur Culture Indicated? Specimen cultured COVID-19 PCR (Negative) Urine Dip Bedside Urine Glucose Negative Bedside Urine Bilirubin - Negative Bedside Urine Ketone - Negative Urine Specific [place] 1.010 Bedside Urine Occult Blood ++ Bedside Urine pH 7 Bedside Urine Protein +/- 15 Bedside Urine Urobilinogen - Negative Bedside Urine Nitrite - Negative Bedside Urine Leukocytes ++ 125 Esterase Imaging Data Chest x-ray: Radiologist Impression: PROCEDURE: XR CHEST 1V INDICATIONS: suspected sepsis TECHNIQUE: One view of the chest was acquired. COMPARISON: [facility], , XR CHEST 2V, 09/26/2018, 10:37. FINDINGS: Surgical changes and devices: A cardiac pacemaker is seen with pulse generator in the left chest. Lungs and pleura: There is mild prominence of the central pulmonary vasculature. No definite focal airspace opacity is seen. No pleural effusions or pneumothorax. Mediastinum: Mediastinal contours appear normal. Heart size is mildly enl arged. Bones and chest wall: No suspicious bony lesions. Overlying soft tissues appear unremarkable. IMPRESSION: Mild cardiomegaly with prominence of the central pulmonary vasculature may indicate mild congestive heart failure. Dictated by: Pj Reyes M.D. on 04/22/2020 at 8:06 Approved by: Pj Reyes M.D. on 04/22/2020 at 8:10 CT scan - head: Radiologist Impression: PROCEDURE: CT HEAD/BRAIN WO CON INDICATIONS: confusion TECHNIQUE: Noncontrast 4.5 mm thick angled axial sections acquired from the foramen magnum to the vertex, with coronal and sagittal reformats. For radiation dose reduction, the following was used: automated exposure control, adjustment of mA and/or kV according to patient size. COMPARISON: [facility], CT, HEAD WITHOUT CONTRAST, 06/15/2006, 15:00. FINDINGS: Image quality: Excellent. CSF spaces: Basal cisterns are patent. No extra-axial fluid collections. The ventricles are symmetric in size and shape. Brain: No acute intracranial hemorrhage or mass effect. There is cerebral volume loss for age, with resultant ventricular and sulcal prominence. There are periventricular and deep white matter chronic small vessel ischemic changes. There is intracranial internal carotid artery atherosclerosis. Skull and face: Calvarium and visualized facial bones appear intact, without suspicious lesions. Sinuses: Visualized sinuses and mastoids are clear. IMPRESSION: No acute intracranial abnormality. Chronic senescent changes including chronic microvascular ischemic changes and age related cerebral atrophy. Dictated by: Pj Reyes M.D. on 04/22/2020 at 8:02 ECG Data Attestation: I personally reviewed and interpreted this ECG as follows: Prior ECG tracings: not available for review Interpretation: Paced rhythm with left bundle branch block rate 73 no Sgarbossa's criteria. MDM Narrative Medical decision making narrative: Patient does have leukocytosis elevated procalcitonin and low-grade fever along with elevated lactic acid of 3.6. He does likely have UTI from his frequent self-catheterizations. He is started on vancomycin and Zosyn. Previous culture does show MRSA it was sensitive to vancomycin. He is not hypotensive or tachycardic. He does not meet severe sepsis criteria. He is given IV fluids. Chest x-ray does show some increased congestion. But he does not have any breathing issues [address] Macdonald paged 1:[address] Macdonald returns call, happy to accept patient Discharge Plan Departure Patient Disposition: Admitted As Inpatient Clinical Impression: Acute UTI Admit Date/Time: 04/22/20 13:24 Admit Provider: Piper Macdonald
[2020-04-22] MEDS: SODIUM CHLORIDE 0.9% 1,000 ML 1000 ML IV (07:27)
[2020-04-22 07:37] LABS: Add Manual Diff / Slide Review NO; Basophils Absolute Auto 100 /uL (0-100); Basophils Percent Auto 0.4 % (0-2); Eosinophils Absolute Auto 0 /uL (0-450); Hematocrit 49.8 % (41-53); Hemoglobin 16.5 g/dL (13.5-17.5); Lymphocytes Absolute Auto 200 /uL (1100-4500); Mean Corpuscular HGB Conc 33.1 % (30-36); Mean Corpuscular Hemoglobin 32.7 PG (26-34); Mean Corpuscular Volume 98.9 fL (80-100); Monocytes Absolute Auto 500 /uL (0-900); Monocytes Percent Auto 2.7 % (3-14); Neutrophils Absolute Auto 18500 /uL (1500-7000); Neutrophils Percent Auto 95.9 % (50-75); Platelet Count 235 X10^3/uL (150-400); Red Blood Cell Count 5.04 X10^6/uL (4.5-5.9); Red Cell Distribution Width 14.5 % (11.6-14.8); White Blood Cell Count 19.3 X10^3/uL (4.5-11.0)
[2020-04-22 07:38] LABS: INR 1.3 (0.9-1.3); Prothrombin Time 14.8 SECONDS (10.1-12.7)
[2020-04-22 07:40] LABS: PTT Partial Thromboplastin Tim 29 SECONDS (26.4-36.2)
[2020-04-22 07:44] LABS: Lactate (Lactic Acid) 3.6 mmol/L (0.7-2.1)
[2020-04-22 07:45] LABS: Alanine Aminotransferase 25 IU/L (<50); Albumin 3.7 g/dL (3.5-5.0); Albumin Globulin Ratio 1.1 (1.0-2.8); Alkaline Phosphatase 85 U/L (38-126); Aspartate Aminotransferase 30 IU/L (17-59); BUN Creatinine Ratio 19.7 (6-22); Bilirubin Total 1.7 mg/dL (0.2-1.3); Blood Urea Nitrogen 24 mg/dL (9-20); Calcium 8.6 mg/dL (8.4-10.2); Carbon Dioxide 25 mmol/L (22-32); Chloride 103 mmol/L (98-107); Creatine Kinase 48 U/L (55-170); Estimated Glomerular Filt Rate 56.3 mL/min (>60); Globulin 3.5 g/dL (1.7-4.1); Glucose 163 mg/dL (80-110); HEMOLYSIS 16 (0-50); Lipase 17 U/L (23-300); Sodium 134 mmol/L (137-145); Total Protein 7.2 g/dL (6.3-8.2)
[2020-04-22 07:54] LABS: Troponin I 0.042 ng/mL (0.01-0.034)
--- NOTE | 2020-04-22 07:56 | DI.CT.S_ITS ---
PROCEDURE: CT HEAD/BRAIN WO CON INDICATIONS: confusion TECHNIQUE: Noncontrast 4.5 mm thick angled axial sections acquired from the foramen magnum to the vertex, with coronal and sagittal reformats. For radiation dose reduction, the following was used: automated exposure control, adjustment of mA and/or kV according to patient size. COMPARISON: [facility], CT, HEAD WITHOUT CONTRAST, 06/15/2006, 15:00. FINDINGS: Image quality: Excellent. CSF spaces: Basal cisterns are patent. No extra-axial fluid collections. The ventricles are symmetric in size and shape. Brain: No acute intracranial hemorrhage or mass effect. There is cerebral volume loss for age, with resultant ventricular and sulcal prominence. There are periventricular and deep white matter chronic small vessel ischemic changes. There is intracranial internal carotid artery atherosclerosis. Skull and face: Calvarium and visualized facial bones appear intact, without suspicious lesions. Sinuses: Visualized sinuses and mastoids are clear. IMPRESSION: No acute intracranial abnormality. Chronic senescent changes including chronic microvascular ischemic changes and age related cerebral atrophy. Dictated by: Pj Reyes M.D. on 04/22/2020 at 8:02 Approved by: Pj Reyes M.D. on 04/22/2020 at 8:05
[2020-04-22 07:59] LABS: Procalcitonin 0.87 ng/mL (<0.5)
[2020-04-22] MEDS: ACETAMINOPHEN 325 MG TABLET 975 MG PO (08:25)
[2020-04-22] MEDS: PIPERACILLIN-TAZO 3.375 GM/50 ML FROZ.PIGGY IV ×2 (08:25→19:14)
[2020-04-22 08:31] LABS: COVID19 -Nasal RAPID Negative (Negative)
[2020-04-22] MEDS: VANCOMYCIN 1,500 MG/300 ML PIGGYBACK 200 MG IV (08:51)
[2020-04-22 08:59] LABS: Appearance Urine UA CLEAR; Bilirubin Urine UA NEGATIVE (NEGATIVE); Color Urine UA YELLOW; Glucose Urine UA NEGATIVE (Negative); Ketones Urine UA NEGATIVE (NEGATIVE); Leukocyte Esterase Urine UA 3+ (NEGATIVE); Nitrite Urine UA NEGATIVE (Negative); Occult Blood Urine UA 2+ (Negative); Protein Urine UA TRACE (Negative); Urobilinogen Urine UA 0.2 E.U./dL (0.2)
[2020-04-22 09:16] LABS: Bacteria Urine Many (>30); Culture Indicated Urine Specimen Cultured; RBC Urine 5-10/HPF (0-5/HPF); WBC Urine >100/HPF (0-5/HPF)
[2020-04-22 09:25] LABS: Reflexed Lactate in 2 Hours Y
[2020-04-22 10:06] LABS: Lactate 2HR (Lactic Acid Rflx) 1.7 mmol/L (0.7-2.1)
[2020-04-22] MEDS: SODIUM CHLORIDE 0.9% 1,000 ML 125 ML IV (11:07)
--- NOTE | 2020-04-22 14:54 | PC.NURSE ---
Received from ED. Tired, weak. Admit done by Olive ATKINS. Only wants to sleep at the moment. Allowed to doze in bed for now.
--- NOTE | 2020-04-22 18:13 | PM.HP.1 ---
History of Present Illness History of Present Illness Date Patient Seen: 04/22/20 Time Patient Seen: 18:13 Chief complaint: Weakness Narrative: 85-year-old male is admitted from the ED secondary to acute urinary tract infection with profound weakness. Patient does have benign prostatic hypertrophy with urinary retention and performs self catheterization several times daily to urinate. In the past month, he has been doing this by reusing the same catheter and without sterile technique. He does have a history of chronic urinary tract infections. is present throughout interview and she states that he was in his normal state of health until this morning when she could not get him out of bed. He felt extremely weak and his balance was off. He was also confused. No cough, chest pain, dizziness, nausea, or vomiting. No numbness, tingling, or unilateral weakness. No speech difficulty or facial droop. Vital signs upon presentation to the ED included a temperature of 100.4?, pulse 77, respirations 18, blood pressure 124/59, O2 saturation 94% on room air. Workup significant for an elevated white count at 19.3, procalcitonin at 0.87 and lactic acid of 3.6 that normalized after food/drink to 1.7. Notably, COVID was negative. Chest x-ray showed mild cardiomegaly possibly consistent with mild CHF. EKG was unremarkable. CT head negative. Troponin was slightly elevated at 0.042. Total bilirubin up at 1.7. 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 Patient History Medical History Enlarged prostate History of recurrent UTI (urinary tract infection) Hypertension Pacemaker Family & Social History Social History: household members spouse Prior Living Arrangements House Safety & Behavioral: Feels Safe in Current Yes Environment Been Physically Hurt or No Threatened By a Person Suicidal Ideation Description None Suicide Plan Description No Plan Tobacco & Substance use: Smoking Status Former smoker alcohol intake frequency a few times a week Substance Use Type does not use Meds Home Medications and Allergies Home Medications Medication Instructions Recorded Confirmed Type nitrofurantoin macrocrystal 50 mg 50 mg PO BEDTIME 09/22/18 04/22/20 History capsule tamsulosin 0.4 mg capsule 0.4 mg PO DAILY 09/22/18 04/22/20 History Allergies Allergy/AdvReac Type Severity Reaction Status Date / Time No Known Drug Allergies Allergy Verified 04/22/20 07:14 Review of Systems Review of Systems ROS: Yes All systems reviewed with the patient and are negative except as otherwise documented Exam Vital Signs (past 8 hours): - 04/22/20 10:30 04/22/20 11:00 04/22/20 11:30 Temperature Pulse Rate 70 70 70 Respiratory Rate 20 Blood Pressure 102/55 L 102/51 L 107/51 L Pulse Oximetry 95 94 94 04/22/20 12:00 04/22/20 12:30 04/22/20 13:00 Temperature Pulse Rate 70 70 70 Respiratory Rate Blood Pressure 105/52 L 109/53 L 104/56 L Pulse Oximetry 94 94 95 04/22/20 13:30 04/22/20 13:51 04/22/20 14:52 Temperature 98.5 F 97.8 F Pulse Rate 70 70 Respiratory Rate 16 Blood Pressure 105/53 L 113/55 L Pulse Oximetry 94 95 04/22/20 16:11 Temperature 97.4 F L Pulse Rate 70 Respiratory Rate 18 Blood Pressure 117/91 H Pulse Oximetry 95 Oxygen Delivery Method Room Air Oxygen Flow Rate 0 Narrative Exam Narrative: GENERAL: Alert and oriented, appearing stated age and in no acute distress. HEENT: Head normocephalic/atraumatic. Pupils equal, round, and reactive to light and accomodation. Extraocular muscles intact. Tympanic membranes clear. Nasal mucosa moist, septum midline. Oral mucosa moist, no lesions. Neck soft and supple, no lymphadenopathy. LUNGS: Clear to ausculation bilaterally, no wheezes, rhonchi or rales. CV: Normal S1 and S2 with paced rate and regular rhythm, no audible murmurs, rubs or gallops. ABDOMEN: Soft, non-tender, non-distended, no organomegaly. Positive bowel sounds. : Dalton in place, gross hematuria in tubing. EXTREMITIES: No clubbing, cyanosis, or edema. NEURO: Cranial nerves II through XII grossly intact, no focal deficits. PSYCH: Alert and oriented x 3. SKIN: No concerning lesions. Objective Labs Result Diagrams: 04/22/20 07:17 04/22/20 07:17 Labs: Laboratory Results - last 24 hr 04/22/20 04/22/20 04/22/20 07:17 07:17 07:17 WBC 19.3 H RBC 5.04 Hgb 16.5 Hct 49.8 MCV 98.9 MCH 32.7 MCHC 33.1 RDW 14.5 Plt Count 235 Neut % (Auto) 95.9 H Lymph % (Auto) 1.0 L [place] % (Auto) 2.7 L Eos % (Auto) 0.0 L Baso % (Auto) 0.4 Neut # (Auto) 85533 H Lymph # (Auto) 200 L [place] # (Auto) 500 Eos # (Auto) 0 Baso # (Auto) 100 PT 14.8 H INR 1.3 APTT 29 Sodium Potassium Chloride Carbon Dioxide BUN Creatinine Estimated GFR BUN/Creatinine Ratio Glucose Lactate Calcium Total Bilirubin AST ALT Alkaline Phosphatase Total Creatine Kinase CK-MB (CK-2) CK-MB (CK-2) Rel Index Troponin I Total Protein Albumin Globulin Albumin/Globulin Ratio Lipase Procalcitonin 0.87 H Urine Color Urine Appearance Urine pH Ur Specific [place] Urine Protein Urine Glucose (UA) Urine Ketones Urine Occult Blood Urine Nitrate Urine Bilirubin Urine Urobilinogen Ur Leukocyte Esterase Urine RBC Urine WBC Urine Bacteria Ur Culture Indicated? COVID-19 PCR 04/22/20 04/22/20 04/22/20 07:17 07:17 08:05 WBC RBC Hgb Hct MCV MCH MCHC RDW Plt Count Neut % (Auto) Lymph % (Auto) [place] % (Auto) Eos % (Auto) Baso % (Auto) Neut # (Auto) Lymph # (Auto) [place] # (Auto) Eos # (Auto) Baso # (Auto) PT INR APTT Sodium 134 L Potassium 4.0 Chloride 103 Carbon Dioxide 25 BUN 24 H Creatinine 1.22 Estimated GFR 56.3 L BUN/Creatinine Ratio 19.7 Glucose 163 H Lactate 3.6 H Calcium 8.6 Total Bilirubin 1.7 H AST 30 ALT 25 Alkaline Phosphatase 85 Total Creatine Kinase 48 L CK-MB (CK-2) TNP CK-MB (CK-2) Rel Index TNP Troponin I 0.042 H Total Protein 7.2 Albumin 3.7 Globulin 3.5 Albumin/Globulin Ratio 1.1 Lipase 17 L Procalcitonin Urine Color Urine Appearance Urine pH Ur Specific [place] Urine Protein Urine Glucose (UA) Urine Ketones Urine Occult Blood Urine Nitrate Urine Bilirubin Urine Urobilinogen Ur Leukocyte Esterase Urine RBC Urine WBC Urine Bacteria Ur Culture Indicated? COVID-19 PCR Negative 04/22/20 04/22/20 08:40 09:45 WBC RBC Hgb Hct MCV MCH MCHC RDW Plt Count Neut % (Auto) Lymph % (Auto) [place] % (Auto) Eos % (Auto) Baso % (Auto) Neut # (Auto) Lymph # (Auto) [place] # (Auto) Eos # (Auto) Baso # (Auto) PT INR APTT Sodium Potassium Chloride Carbon Dioxide BUN Creatinine Estimated GFR BUN/Creatinine Ratio Glucose Lactate 1.7 Calcium Total Bilirubin AST ALT Alkaline Phosphatase Total Creatine Kinase CK-MB (CK-2) CK-MB (CK-2) Rel Index Troponin I Total Protein Albumin Globulin Albumin/Globulin Ratio Lipase Procalcitonin Urine Color Yellow Urine Appearance Clear Urine pH 7.0 Ur Specific [place] 1.010 Urine Protein Trace H Urine Glucose (UA) Negative Urine Ketones Negative Urine Occult Blood 2+ H Urine Nitrate Negative Urine Bilirubin Negative Urine Urobilinogen 0.2 Ur Leukocyte Esterase 3+ H Urine RBC 5-10/hpf H Urine WBC >100/hpf H Urine Bacteria Many (>30) H Ur Culture Indicated? Specimen cultured COVID-19 PCR Assessment & Plan Assessment & Plan narrative: 1. Acute UTI, secondary to non-sterile self-catheterizations Plan: Last urine culture dated 03/20/2020 showed MRSA, sensitive to vancomycin. Will continue to treat with Zosyn and vancomycin while awaiting culture results. Chest x-ray showed mild congestion so will be careful with fluids overnight and run labs in the morning. Patient did have 1000 cc bolus in the ED and is drinking fluids. 2. Gross hematuria, acute -Occured after admission and placement of dalton, but delayed by more than 12 hours. Possibly due to traumatic catheterization; however, the patient denies any difficulty with Dalton placement. He did have some minor discomfort but he is very used to catheterization and there was no blood initially. Favor disruption by dalton to his prostate gland vessels while moving in his bed. Could also be due to acute kidney injury, but there was no evidence of this on admission and he does not have chronic kidney disease. Also possibly due to a stone but he is not having pain. Bladder scan showed zero residual and catheter is draining well. Plan: Will keep dalton in place overnight so as not to cause more trauma. May need to remove catheter if thrombus forms in tube and consult urology. 3. Elevated troponin, rule out acute coronary syndrome Plan: Suspect that this is secondary to mild congestion on chest x-ray but will run serial troponins to rule out ACS. 4. Generalized weakness, acute Plan: Likely secondary to acute UTI, treatment as noted in #1. PT to follow. 5. Hypertension, chronic Plan: No home medications for this, will watch closely. 6. Hyperlipidemia, chronic Plan: Diet controlled at home, will not focus on this during this hospitalization. 7. Atrial fibrillation, chronic Plan: Rhythm now paced. Due to fall risk, anticoagulation contraindicated. Telemetry. 8. BPH with urinary obstruction Plan: Please see #2. Otherwise, continue dalton catheter and tamsulosin 0.4 mg p.o. q.day. Follow-up with outpatient Urology, scheduled for prostate surgery within the month. 9. 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 10. Folate deficiency, historical Plan: Will check folate level. 11. Repeated falls, chronic Plan: PT/OT. 12. Increased TSH, historical Plan: TSH update. GI prophylaxis: Protonix DVT prophylaxis: SCDs Code: Full COVID: Negative
[2020-04-22 20:16] LABS: Troponin I 0.026 ng/mL (0.01-0.034)
[2020-04-22] MEDS: VANCOMYCIN 750 MG/150 ML FROZ.PIGGY 150 MG IV (21:29)
[2020-04-22] MEDS: PANTOPRAZOLE 40 MG VIAL 20 MG IV (21:29)
[2020-04-22 22:06] LABS: Vancomycin-rest genes A/B Not Detected (Not Detect)
[2020-04-22 22:07] LABS: Acinetobacter baumannii Not Detected (Not Detect); Candida albicans Not Detected (Not Detect); Candida glabrata Not Detected (Not Detect); Candida krusei Not Detected (Not Detect); Candida parapsilosis Not Detected (Not Detect); Candida tropicalis Not Detected (Not Detect); E. coli Not Detected (Not Detect); Enterobacter cloacae complex Not Detected (Not Detect); Enterobacteriaceae species Not Detected (Not Detect); Enterococcus species Not Detected (Not Detect); Haemophilus influenzae Not Detected (Not Detect); KPC (carbapenem-resist gene) Not Detected (Not Detect); Listeria monocytogenes Not Detected (Not Detect); Methicillin-resistant gene Detected (Not Detect); Neisseria meningitidis Not Detected (Not Detect); Proteus species Not Detected (Not Detect); Pseudomonas aeruginosa Not Detected (Not Detect); Serratia marcescens Not Detected (Not Detect); Staphylococcus species Not Detected (Not Detect); Streptococcus agalactiae (Gr B Not Detected (Not Detect); Streptococcus pneumonia Not Detected (Not Detect); Streptococcus pyogenes (Gr A) Not Detected (Not Detect); Streptococcus species Not Detected (Not Detect)
[2020-04-23] MEDS: PIPERACILLIN-TAZO 3.375 GM/50 ML FROZ.PIGGY IV ×2 (00:17→06:14)
[2020-04-23 06:00] VITALS: BP 130/70; PULSE 70; RESP 16; TEMP 36.4; O2SAT 93
[2020-04-23 06:15] LABS: Add Manual Diff / Slide Review NO; Basophils Absolute Auto 0 /uL (0-100); Basophils Percent Auto 0.3 % (0-2); Eosinophils Absolute Auto 100 /uL (0-450); Eosinophils Percent Auto 0.8 % (2-4); Hematocrit 46.5 % (41-53); Hemoglobin 15.4 g/dL (13.5-17.5); Lymphocytes Absolute Auto 900 /uL (1100-4500); Lymphocytes Percent Auto 5.9 % (25-40); Mean Corpuscular Hemoglobin 32.9 PG (26-34); Mean Corpuscular Volume 99.7 fL (80-100); Monocytes Absolute Auto 700 /uL (0-900); Monocytes Percent Auto 4.6 % (3-14); Neutrophils Absolute Auto 13200 /uL (1500-7000); Neutrophils Percent Auto 88.4 % (50-75); Platelet Count 173 X10^3/uL (150-400); Red Blood Cell Count 4.67 X10^6/uL (4.5-5.9); Red Cell Distribution Width 14.9 % (11.6-14.8); White Blood Cell Count 14.9 X10^3/uL (4.5-11.0)
[2020-04-23 06:25] LABS: BUN Creatinine Ratio 24.8 (6-22); Blood Urea Nitrogen 34 mg/dL (9-20); Calcium 7.8 mg/dL (8.4-10.2); Carbon Dioxide 28 mmol/L (22-32); Chloride 104 mmol/L (98-107); Estimated Glomerular Filt Rate 49.3 mL/min (>60); Glucose 97 mg/dL (80-110); HEMOLYSIS < 15 (0-50); Potassium 3.7 mmol/L (3.4-5.1); Sodium 136 mmol/L (137-145)
[2020-04-23 06:34] LABS: NT-proBNP (BNP-Adult 18+) 9620 pg/mL (<450)
[2020-04-23 06:59] LABS: TSH w/ Reflex to FT4 2.39 uIU/mL (0.47-4.68)
[2020-04-23 07:30] LABS: Folate 3.7 ng/mL (2.76-20.0)
--- NOTE | 2020-04-23 08:23 | DI.ECHO.S_ITS ---
[place]---------+ [facility] +---------+ : : [address] : : : : [id number] : : : : Phone: [phone]+ Echocardiogram Report + + :Name: SARI MATTSON Study Date: 04/23/2020 Height: 74 in : :[facility] Weight: 194 lb : : Gender: Male BSA: 2.1 m2 : :: 1935 Age: 85 yrs BP: 107/59 mmHg: :Reason For Study: ELEVATED BNP, SEPSIS : :Ordering Physician: ALEXA, : :NATALY Performed By: Hilda Morrison : :Referring: NATALY LIU : + + Interpretation Summary 1) Severely enlarged left ventricle with severely reduced systolic function (EF 20-25%). 2) The inferior wall is akinetic. Severe global hypokinesis. The apex has dyssynchronous contraction patter due to the paced rhythm. 3) The right ventricle is normal in size and function. There is a pacemaker lead in the right ventricle. 4) There is moderate aortic regurgitation. 5) The ascending aorta is mildly enlarged at 4.2cm. 6) No prior Echo available for comparison. Procedure: A two-dimensional transthoracic echocardiogram with color flow and Doppler was performed. The study quality was technically adequate. There is no prior echocardiogram noted for this patient. The patient has a paced rhythm. The heart rate ranged between 70-71 bpm during the study. Left Ventricle: The left ventricle is severely dilated. The ejection fraction is estimated to be 20-25%. There is a significant dyssynchronous contraction pattern due to the paced rhythm. The inferior wall is akinetic. Severe global hypokinesis. The apex has dyssynchronous contraction patter due to the paced rhythm. Diastolic function could not be accurately assessed due to paced rhythm. Right Ventricle: The right ventricle is normal in size and function. There is a pacemaker lead in the right ventricle. Atria: The left atrium is mildly dilated. Right atrial size is normal. There is no Doppler evidence for an interatrial shunt. Mitral Valve: The mitral valve leaflets are mildly calcified. There is mild mitral annular calcification. There is mild mitral regurgitation. Aortic Valve: The aortic valve is trileaflet. The aortic valve opens well. The aortic valve is slightly calcified. There is no aortic valve stenosis. There is moderate aortic regurgitation. Tricuspid Valve: The tricuspid valve is normal in structure and function. The right ventricular systolic pressure is estimated to be at least 21 mmHg based on an estimated right atrial pressure of 3 mm Hg. There is mild tricuspid regurgitation. Pulmonic Valve: The pulmonic valve leaflets are thin and pliable; valve motion is normal. There is no pulmonic valvular regurgitation. Great Vessels: The aortic root is normal size. The ascending aorta is mildly enlarged. The IVC is of normal diameter and collapses greater than 50% with a sniff. This suggests a low right atrial pressure of 3 mm Hg. Pericardium/ Pleura There is no pericardial effusion. There is no pleural effusion. MMode/2D Measurements & Calculations LVIDd: 6.0 cm LVOT diam: 2.3 cm LVIDs: 5.2 cm Ao root diam: 3.6 cm FS: 13.5 % asc Aorta Diam: 4.2 cm EPSS: 2.4 cm Ao Arch Diam (Prox Trans): 3.2 cm IVSd: 1.3 cm LVPWd: 1.5 cm LV webster. diameter/BSA (cm/m^2): 2.8 LV sys. diameter/BSA (cm/m^2): 2.4 LA A2 area: 33.2 cm2 RA long axis: 5.0 cm LA A4 area: 14.8 cm2 RA area: 14.6 cm2 LA length (vol): 4.6 cm RA vol: 36.1 ml LA vol: 91.5 ml RA : 16.8 ml/m2 LA vol index: 42.7 ml/m2 IVC diam: 1.5 cm RVD1 (basal): 3.5 cm TAPSE: 2.0 cm Doppler Measurements & Calculations Ao V2 max: 141.7 cm/sec LVOT Max Gómez: 85.5 cm/sec Ao V2 mean: 98.4 cm/sec LV V1 max P.9 mmHg Ao max P.0 mmHg LV V1 VTI: 15.1 cm Ao mean P.3 mmHg ALEX(I,D): 2.2 cm2 Ao V2 VTI: 27.7 cm ALEX(V,D): 2.5 cm2 sev ratio: 0.55 ALEX indexed to BSA (cm^2/m^2): 1.0 AI P1/2t: 623.0 msec AI dec slope: 196.1 cm/sec2 MV E max gómez: 97.7 cm/sec TR max gómez: 210.0 cm/sec MV A max gómez: 0.97 cm/sec TR max P.6 mmHg MV E/A: 100.3 PA V2 max: 56.9 cm/sec Med Peak E' Gómez: 8.2 cm/sec PA V2 mean: 33.9 cm/sec E/E' med: 11.9 PA mean P.57 mmHg Lat Peak E' Gómez: 10.2 cm/sec PA pr(Accel): 25.9 mmHg E/E' lat: 9.6 E/e' average: 10.7 MV dec time: 0.13 sec SV(LVOT): 61.7 ml Reading Physician:01:11 PM
--- NOTE | 2020-04-23 08:24 | PM.PN.1 ---
Subjective Subjective Date Patient Seen: 04/23/20 Time Patient Seen: 08:25 Interval history: Patient feeling better today. Having no chest pain. No dyspnea. No cough. Feeling more himself. No headaches visual changes or other complaints. No abdominal pain. Catheter is been running more clear. Still has some blood. Otherwise no change. Exam Vital Signs (past 8 hours): - 04/23/20 06:00 Temperature 97.6 F Pulse Rate 70 Respiratory Rate 16 Blood Pressure 130/70 Pulse Oximetry 93 Oxygen Delivery Method Room Air Oxygen Flow Rate 0 Narrative Exam Narrative: Alert elderly male sitting in bed mildly fatigued no acute distress. Mucous membranes mildly dry. Neck supple without adenopathy. No JVD no bruits. Lungs appear clear to me. Heart regular rate and rhythm without murmurs clicks rubs or gallops. Abdomen is soft positive bowel sounds nontender extremities without cyanosis clubbing edema. Neurologic exam was nonfocal. Psychologically interactive appropriate Objective Labs Result Diagrams: 04/23/20 06:00 04/23/20 06:00 Labs: Laboratory Results - last 24 hr 04/22/20 04/22/20 04/22/20 07:17 08:05 08:40 WBC RBC Hgb Hct MCV MCH MCHC RDW Plt Count Neut % (Auto) Lymph % (Auto) [place] % (Auto) Eos % (Auto) Baso % (Auto) Neut # (Auto) Lymph # (Auto) [place] # (Auto) Eos # (Auto) Baso # (Auto) Sodium Potassium Chloride Carbon Dioxide BUN Creatinine Estimated GFR BUN/Creatinine Ratio Glucose Lactate Calcium Troponin I NT-Pro-B Natriuret Pep Folate TSH Urine Color Yellow Urine Appearance Clear Urine pH 7.0 Ur Specific [place] 1.010 Urine Protein Trace H Urine Glucose (UA) Negative Urine Ketones Negative Urine Occult Blood 2+ H Urine Nitrate Negative Urine Bilirubin Negative Urine Urobilinogen 0.2 Ur Leukocyte Esterase 3+ H Urine RBC 5-10/hpf H Urine WBC >100/hpf H Urine Bacteria Many (>30) H Ur Culture Indicated? Specimen cultured A. baumannii (PCR) Not detected Yahaira albicans (PCR) Not detected C. glabrata (PCR) Not detected C. krusei (PCR) Not detected C. parapsilosis (PCR) Not detected C. tropicalis (PCR) Not detected COVID-19 PCR Negative Enterobacteriac sp PCR Not detected E. cloacae complex PCR Not detected Enterococcus sp PCR Not detected E. coli (PCR) Not detected H. influenzae (PCR) Not detected Klebsiella oxytoca PCR Not detected Klebsiella pneumoniae Not detected List. monocytogenes PCR Not detected N. meningitidis (PCR) Not detected Proteus species (PCR) Not detected Serratia marcescens PCR Not detected Staphylococcus sp PCR Not detected Staph aureus (PCR) Detected H mecA-Methicil Res Gene Detected H Streptococcus sp PCR Not detected Group A Strep (PCR) Not detected Strep agalactiae (PCR) Not detected Strep pneumoniae (PCR) Not detected P. aeruginosa (PCR) Not detected Nicolas/B-Vanco Res Genes Not detected KPC-Carbap Res Gene PCR Not detected 04/22/20 04/22/20 04/23/20 09:45 19:45 06:00 WBC 14.9 H RBC 4.67 Hgb 15.4 Hct 46.5 MCV 99.7 MCH 32.9 MCHC 33.0 RDW 14.9 H Plt Count 173 Neut % (Auto) 88.4 H Lymph % (Auto) 5.9 L [place] % (Auto) 4.6 Eos % (Auto) 0.8 L Baso % (Auto) 0.3 Neut # (Auto) 18562 H Lymph # (Auto) 900 L [place] # (Auto) 700 Eos # (Auto) 100 Baso # (Auto) 0 Sodium Potassium Chloride Carbon Dioxide BUN Creatinine Estimated GFR BUN/Creatinine Ratio Glucose Lactate 1.7 Calcium Troponin I 0.026 NT-Pro-B Natriuret Pep Folate TSH Urine Color Urine Appearance Urine pH Ur Specific [place] Urine Protein Urine Glucose (UA) Urine Ketones Urine Occult Blood Urine Nitrate Urine Bilirubin Urine Urobilinogen Ur Leukocyte Esterase Urine RBC Urine WBC Urine Bacteria Ur Culture Indicated? A. baumannii (PCR) Yahaira albicans (PCR) C. glabrata (PCR) C. krusei (PCR) C. parapsilosis (PCR) C. tropicalis (PCR) COVID-19 PCR Enterobacteriac sp PCR E. cloacae complex PCR Enterococcus sp PCR E. coli (PCR) H. influenzae (PCR) Klebsiella oxytoca PCR Klebsiella pneumoniae List. monocytogenes PCR N. meningitidis (PCR) Proteus species (PCR) Serratia marcescens PCR Staphylococcus sp PCR Staph aureus (PCR) mecA-Methicil Res Gene Streptococcus sp PCR Group A Strep (PCR) Strep agalactiae (PCR) Strep pneumoniae (PCR) P. aeruginosa (PCR) Nicolas/B-Vanco Res Genes KPC-Carbap Res Gene PCR 04/23/20 04/23/20 06:00 06:00 WBC RBC Hgb Hct MCV MCH MCHC RDW Plt Count Neut % (Auto) Lymph % (Auto) [place] % (Auto) Eos % (Auto) Baso % (Auto) Neut # (Auto) Lymph # (Auto) [place] # (Auto) Eos # (Auto) Baso # (Auto) Sodium 136 L Potassium 3.7 Chloride 104 Carbon Dioxide 28 BUN 34 H Creatinine 1.37 H Estimated GFR 49.3 L BUN/Creatinine Ratio 24.8 H Glucose 97 Lactate Calcium 7.8 L Troponin I NT-Pro-B Natriuret Pep 9620 H Folate 3.7 TSH 2.39 Urine Color Urine Appearance Urine pH Ur Specific [place] Urine Protein Urine Glucose (UA) Urine Ketones Urine Occult Blood Urine Nitrate Urine Bilirubin Urine Urobilinogen Ur Leukocyte Esterase Urine RBC Urine WBC Urine Bacteria Ur Culture Indicated? A. baumannii (PCR) [place] albicans (PCR) C. glabrata (PCR) C. krusei (PCR) C. parapsilosis (PCR) C. tropicalis (PCR) COVID-19 PCR Enterobacteriac sp PCR E. cloacae complex PCR Enterococcus sp PCR E. coli (PCR) H. influenzae (PCR) Klebsiella oxytoca PCR Klebsiella pneumoniae List. monocytogenes PCR N. meningitidis (PCR) Proteus species (PCR) Serratia marcescens PCR Staphylococcus sp PCR Staph aureus (PCR) mecA-Methicil Res Gene Streptococcus sp PCR Group A Strep (PCR) Strep agalactiae (PCR) Strep pneumoniae (PCR) P. aeruginosa (PCR) Nicolas/B-Vanco Res Genes KPC-Carbap Res Gene PCR PFSH Medical History Enlarged prostate History of recurrent UTI (urinary tract infection) Hypertension Pacemaker Social History household members: spouse Smoking Status: Former smoker Assessment & Plan Assessment & Plan narrative: Urosepsis. Positive blood cultures with mental status changes which are now improved and probable cardiac injury secondary to sepsis. Improved. White count is decreased. Vital signs of improved. Culture is MRSA. Probably secondary from his urine. And for technique with catheterization. Will discontinue piperacillin and continue Vanco. Will need several days of treatment. Will see what culture finally decides. Follow from there. Certainly will need 3 or 4 days of inpatient treatment. No other changes. Will follow. Gross hematuria. Probably secondary to catheterization. Seems to be improving. Will follow. Could be related to infection also. Responding to treatment will follow. Elevated troponin suspect secondary to demand ischemia. Seems to be much improved last number was normal. Do not believe this is the myocardial infarction. Acute renal failure. I think he is probably still a little dry. Is difficult with his elevated BNP. Chest x-ray showed some congestion exam today does not show significant change will gently hydrate and follow recheck in a.m.. Elevated BNP. Will obtain echo with troponin increase may show some abnormality will have to follow. I still think he is a little bit fluid down but will have to consider Lasix depending on how he does. Generalized weakness. Will start physical therapy tomorrow. Follow from there. BPH. At this point will continue catheterization. May need to continue until he is seen for TURP but will see how things go. Will discuss with urologist. Certainly will keep it in for the next several days. Hypertension. Stable. Will follow. Atrial fibrillation stable. Will follow. History of bradycardia with pacemaker. Stable. GI prophylaxis on propofol tonics. Code status full. COVID negative. DVT prophylaxis SCDs. Disposition. Will be here for a couple more days. Will see how things go.
[2020-04-23] MEDS: SODIUM CHLORIDE 0.9% 1,000 ML 100 ML IV ×2 (08:58→19:15)
[2020-04-23] MEDS: VANCOMYCIN 750 MG/150 ML FROZ.PIGGY 150 MG IV ×2 (09:16→21:00)
[2020-04-23] MEDS: TAMSULOSIN 0.4 MG CAPSULE PO (09:16)
[2020-04-23] MEDS: PANTOPRAZOLE 40 MG VIAL 20 MG IV ×2 (09:16→20:59)
[2020-04-23 09:41] VITALS: BP 107/54; PULSE 70; RESP 16; TEMP 36.6; O2SAT 97
--- NOTE | 2020-04-23 11:02 | OT.IP.EVAL ---
Current Diagnoses Urinary tract infection, site not specified (04/22/20) Past Medical History (Last Reviewed 04/22/20 @ 08:52 by Sri Mckeon DO) Enlarged prostate History of recurrent UTI (urinary tract infection) Hypertension Pacemaker Occupational Therapy Inpatient Evaluation/Re-Eval M1 PT/OT-IP Prior Functional Status Start: 04/23/20 12:19 Freq: NEEDED Status: Active Protocol: Document 04/23/20 12:19 CGR (Rec: 04/23/20 12:58 CGR [id number]) Medical Review Prior Functional Status Medical History Reviewed Yes Communication Pt is an effective verbal communicator but is [place]. Mobility and Gait Pt was IND at baseline without AD Activities of Daily Living and IADL's Pt was IND at baseline without AD Social History Household Members spouse Living Arrangements House Number of Floors (Floors) One Floor Number of Stairs To Enter/Railing? Pt has 1 step to enter with a brick fence at the step to hold onto. 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 M2 OT-IP Current Condition Start: 04/23/20 12:19 Freq: Status: Active Protocol: Document 04/23/20 12:19 CGR (Rec: 04/23/20 12:58 CGR [id number]) Occupational Therapy Current Condition Current Condition Evaluation Date 04/23/20 Treatment Diagnosis Generalized weakness, UTI Diagnosis Onset Date 04/22/20 M3 OT- IP Subjective and Pain Start: 04/23/20 12:19 Freq: Status: Active Protocol: Document 04/23/20 12:19 CGR (Rec: 04/23/20 12:58 CGR [id number]) OT- Subjective Occupational Therapy Visit Type Type Initial Evaluation Visit Start Time 10:35 Visit Stop Time 11:02 Total Visit Minutes 27 Notes Pt's present throughout. OT Pain Assessment Pain When Pain Assessed At Rest Pain Present Pain Present Denied Pain M4 OT- IP ADL's Start: 04/23/20 12:19 Freq: Status: Active Protocol: Document 04/23/20 12:19 CGR (Rec: 04/23/20 12:58 CGR [id number]) OT [id number] Comments OT Self-Feeding Comments Not meal time OT ADL-Grooming Comments OT Grooming Comments Pt declined, already perform today. OT ADL-Oral Care Comments Oral Care Comments Pt declined, already perform today. OT ADL-Dressing General Eval Lower Body Dressing Ability Independent Areas Needing Assistance Socks Comments OT Dressing Comments seated EOB OT ADL-Toileting General Evaluation Toileting Ability Standby Assistance Devices Toileting Assistive Devices Grab Bars Comments OT Toileting Comments simulated seated on toielt with use of GB. Pt currently with dalton. OT ADL-Bathing Comments OT Bathing Comments Not performed M5 OT- IP IADL's Start: 04/23/20 12:19 Freq: Status: Active Protocol: Document 04/23/20 12:19 CGR (Rec: 04/23/20 12:58 CGR [id number]) OT-Instrumental Activities of Daily Living Deficits IADL Deficits Identified No Deficits Home Safety Awareness Awareness of Need for Assistance at Home Good Awareness Ability to Problem Solve Emergency Able to Problem Solve Situations Medication Management Medication Management No Deficits Identified Money Management Money Management No Deficits Identified Meal Preparation Meal Preparation Caregiver Provides Assist Automation Application Engineer Automation Application Engineer Caregiver Provides Assist Driving Driving Comments 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 M6 OT- IP Functional Cognition Start: 04/23/20 12:19 Freq: Status: Active Protocol: Document 04/23/20 12:19 CGR (Rec: 04/23/20 12:58 CGR [id number]) Cognitive Factors Limiting Selfcare Function Cognitive Ability Level of Alertness Alert Patient Orientation Name,Age,Birthday,Month,Date, Year,Day of Week,Place, Situation Attention Span Ability Capable of Focused Attention, Capable of Sustained Attention Ability to Follow Commands Able to Follow One Step Commands with Increased Time, Able to Follow One Step Commands with Repetition Memory Description No Deficits Noted Safety Awareness No Deficits Noted Cognitive Comments Cognitive Assessment Comments Pt appears to be at his baseline at this time. OT- Vision and Hearing OT- Hearing Assessment OT- Hearing Assessment Hearing Impaired,Use of Hearing Aids OT- Vision Assessment Visual Acuity Glasses For Reading Visual Attentiveness WFL Occular Pursuits WFL Visual Convergence WFL Vision Assessment Comments Occular pursuits were slow but WFL M7 OT- IP Mobility and Balance Start: 04/23/20 12:19 Freq: Status: Active Protocol: Document 04/23/20 12:19 CGR (Rec: 04/23/20 12:58 CGR [id number]) OT- Bed Mobility Assessment Rolling Type of Rolling Roll to Right Level of Assistance Standby Assistance Supine to Sit Supine to Sit Assist Standby Assistance Sit to Supine Sit to Supine Assist Standby Assistance Scooting Scooting to Edge of Bed Standby Assistance OT-Transfer Assessment Sit to and From Stand Sit to and from Stand Contact Guard Assistance Transfers Transfer Ability Contact Guard Assistance Technique Transfer Destination Bed,Chair,Toilet Transfer Technique Stand Step Pivot Devices Transfer Assistive Devices Gait Belt,Front Wheeled Walker Comments Mobility Comments Pt requested to use the walker for mobility. Pt ambulated around the room and into the bathroom. OT- Gait Assessment Gait Gait Assistance Required: Contact Guard Assist Assistive Devices Assistive Device Gait Belt,Front Wheeled Walker Comments Gait Ability Comments Mobility around the room. OT- Balance Assessment Sitting Balance and Reactions Static Sitting Balance Ability Normal Dynamic Sitting Balance Ability Good M8 OT- IP Objective Assessments Start: 04/23/20 12:19 Freq: Status: Active Protocol: Document 04/23/20 12:19 CGR (Rec: 04/23/20 12:58 CGR [id number]) OT Gross Range of Motion Upper Extremity Range of Motion Assessment Within Functional Limits OT Strength Upper Extremity Strength Assessment Within Functional Limits Comments Strength Comments grossly 4+/5 OT- Coordination Assessment Comments Coordination Comments Noted poor coordination with simple thumb to finger activites. Will continue to follow. OT-Muscle Tone Assessment Muscle Tone WNL Yes OT Sensation Assessment Edema Edema Absent M9 OT- IP Assessment and Plan Start: 04/23/20 12:19 Freq: Status: Active Protocol: Document 04/23/20 12:19 CGR (Rec: 04/23/20 12:58 CGR [id number]) OT Summary Assessment and Plan Potential Rehabilitation Potential Excellent Analytic Complexity at Evaluation Low Summary OT Impairments Coordination,Functional Mobility,Grooming,Dressing, Toileting,Bathing,Toilet Transfers,Shower Transfers, Activity Tolerance Progress Towards Goals Progressing Toward Goals,Slow Progress due to Activity Tolerance Assessment Summary Pt presents as a low complexity evaluation s/p admit for generalized weakness and UTI. Minimal session performed d/t pt appeared diaphoretic with mobility and pt declined simple ADLs. Pt appears to be close to his baseline of IND. Will follow up for 1-2 more sessions for shower training and increased endurance. Pt is likely to be safe for discharge home with family. Goals Grooming Goal Independent Dressing Goal Independent Toileting Goal Independent Bathing Goal Independent Toilet Transfer Goal Independent Shower Transfer Goal Independent Days to Meet Goals 2 Frequency of Treatment Frequency Of Treatment Once a Day Treatment Plan OT Treatment Plan ADL Training,Patient/Family Education,Discharge Planning Other Treatment Recommendations and Next shower Treatment Focus Discharge Recommendations OT Discharge Recommendations Home with Assistance Other Discharge Recommendations grab bars for home bath. Transportation Needs at Discharge Private Vehicle
--- NOTE | 2020-04-23 11:56 | CM.IDA ---
Initial DCP Assessment Note Pt is an 85 yo male, resident of [place]. Patient admitted for medical management of urosepsis, length of stay expected to be at least another 24-72 hrs. Patient self catheterizes at home PCP: Fidel Handy Payer: VIVIENNE/[employer] Reviewed chart and then spoke w/CJ, OT, to coordinate DC planning efforts. Patient indp and active at baseline, supportive spouse Ashlee same and at bedside this morning. No h/o HH or SNF Therapy has cleared pt for return home w/family to assist and pt has planned for home. No needs expected from DC planning team although will remain available in case this changes before medical DC; r/o need for HH closer to [place]. DEBBI Mckeon Discharge Planning/Care Management Advanced directive, confirm from FAMILY Start: 04/22/20 14:20 Freq: Q24H Status: Active Protocol: Document 04/22/20 18:18 AKP (Rec: 04/22/20 18:32 AKP [id number]) Advance Directive, confirm on record Time 18:18 Person contacted Copy received No CM Discharge Assessment Start: 04/23/20 11:46 Freq: Status: Active Protocol: Document 04/23/20 11:46 BASSEM (Rec: 04/23/20 11:55 [id number]) Discharge Planning Assessment Assigned Yard Attendant DEBBI Barone DPOA/Assigned Designee Name Ashlee Whyte, spouse Contact Information [phone] Advance Directives? Yes History Provided By Patient,Significant Other Prior Living Arrangements House Household Members spouse Independent with ADL's Yes Is patient alert and oriented? Yes Caregiver for Another No Comment r/o need for HH closer to [place] Barriers to Discharge No Discharge Plan Home Transportation Arrangement Spouse, family Referrals Initiated None needed Additional Comment At this time
--- NOTE | 2020-04-23 12:10 | PT.IIE ---
Current Diagnoses Urinary tract infection, site not specified (04/22/20) Medical History (Last Reviewed 04/22/20 @ 08:52 by Sri Mckeon DO) Enlarged prostate History of recurrent UTI (urinary tract infection) Hypertension Pacemaker Physical Therapy Inpatient Evaluation/Re-Eval M1 PT/OT-IP Prior Functional Status Start: 04/23/20 12:19 Freq: NEEDED Status: Active Protocol: Document 04/23/20 12:19 CGR (Rec: 04/23/20 12:58 CGR [id number]) Medical Review Prior Functional Status Medical History Reviewed Yes Communication Pt is an effective verbal communicator but is [place]. Mobility and Gait Pt was IND at baseline without AD Activities of Daily Living and IADL's Pt was IND at baseline without AD Social History Household Members spouse Living Arrangements House Number of Floors (Floors) One Floor Number of Stairs To Enter/Railing? Pt has 1 step to enter with a brick fence at the step to hold onto. 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 M2 PT-IP Current Condition Start: 04/23/20 08:43 Freq: NEEDED Status: Active Protocol: Document 04/23/20 12:08 AW (Rec: 04/23/20 12:38 AW [id number]) Physical Therapy Current Condition Current Condition Evaluation Date 04/23/20 Treatment Diagnosis urosepsis; generalized weakness; difficulty in walking Onset Date 04/21/20 Precautions Other Precautions contact precautions in place at time of eval M3 PT-IP Subjective Start: 04/23/20 08:43 Freq: NEEDED Status: Active Protocol: Document 04/23/20 12:08 AW (Rec: 04/23/20 12:38 AW [id number]) Subjective Physical Therapy Visit Type Type Initial Evaluation Visit Start Time 11:50 Visit Stop Time 12:08 Total Visit Minutes 18 Notes Pt's spouse, Ashlee, arrived toward end of session. Physical Therapy Visit Comments Patient Comments I've had a busy morning but I can get up again. Patient Goals I want my energy back so I can go home. Therapy Pain Assessment Pain When Pain Assessed During Mobility Pain Present Pain Present Denied Pain M4 PT-IP Mobility and Gait Start: 04/23/20 08:43 Freq: NEEDED Status: Active Protocol: Document 04/23/20 12:08 AW (Rec: 04/23/20 12:38 AW [id number]) PT-Bed Mobility Assessment Supine to Sit Supine to Sit Standby Assistance Scooting Scooting to Edge of Bed Standby Assistance PT-Transfer Assessment Sit to and From Stand Sit to and from Stand Contact Guard Assistance,Use of Upper Extremities Equipment Transfer Assistive Device Gait Belt Orthotic/Prosthetic Devices or Brace: No Transfers Transfer Destination Chair Transfer Technique Stand Step Pivot Transfer Ability Level of Assist Standby Assistance,Use of Upper Extremities Comments Mobility Comments Pt was lying in the bed following OT and echo as PT arrived. He was able to transfer to sitting EOB SBA and then transferred to the bedside chair with assist to manage dalton bag and IV. Pt sat for assessment and then stood again SBA. Pt initially requested FWW but then asked to ambulate without a device. He walked around the room a total of 50 feet without AD CGA for balance. Pt reached for bed frame and counter as he passed to steady himself and reported feeling he was operating at ~60-70% of baseline capacity. Pt then stood near the bed for balance assessment before transferring to the chair. Pt was positioned with lunch tray and call light in reach. Gait Assessment Gait Gait Assistance Required: Standby Assistance Distance (Feet) 50 Assistive Devices Assistive Device Gait Belt Orthotic/Prosthetic Devices or Brace: No Gait Deviations General Gait Pattern Antalgic,Decreased Feet Clearance Factors Limiting Gait Function Factors Limiting Gait Function Decreased Activity Tolerance, Decreased Sensation,Decreased Strength,Poor Balance,Poor Safety Awareness Comments Gait Comments Pt ambulates with excessive knee flexion and cruises furniture for steadiness, requiring CGA. Stair Climbing Assessment Comments Stair Climbing Comments Not assessed. PT-Balance Assessment Sitting Balance and Reactions Static Sitting Balance Ability Normal Dynamic Sitting Balance Ability Good Standing Balance and Reactions Static Standing Balance Ability Good Dynamic Standing Balance Ability Fair Device Used no AD Balance Tests Single Limb Standing 8 sec LLE; 5 sec RLE Romberg excess sway with EC Tandem Standing assist for positioning; unable to maintain w/o support M5 PT-IP Objective Assessments Start: 04/23/20 08:43 Freq: NEEDED Status: Active Protocol: Document 04/23/20 12:08 AW (Rec: 04/23/20 12:38 AW [id number]) Orientation Orientation/Cognition Level of Alertness Alert Orientation Name,Day of Week,Place, Situation Language Function Ability No Deficits Noted Safety Awareness Decreased Safety Awareness Memory Description No Deficits Noted Gross Range of Motion Lower Extremity ROM Assessment Within Functional Limits Strength Lower Extremity Strength Assessment Within Functional Limits Comments Strength Comments BLE grossly 5/5 on MMT but weak quads observed during gait. Coordination Assessment Gross Coordination Gross Coordination WNL Sensation Assessment Sensation Gross Sensation Right LE Impaired,Left LE Impaired Light Touch Impaired Comments Sensation Comments Pt endorses fuzzy feeling in bilateral plantar feet which is consistent with his baseline. Dorsal surfaces are not affected. Muscle Tone Muscle Tone WNL Yes M6 PT-IP Treatment Start: 04/23/20 08:43 Freq: NEEDED Status: Active Protocol: Document 04/23/20 12:08 AW (Rec: 04/23/20 12:38 AW [id number]) Physical Therapy Treatment Education Education Provided Safety Other Treatments Other Treatment Performed Provided education on role of PT, plan of care, and rationale for use of an assistive device. M7 PT-IP Assessment and Plan Start: 04/23/20 08:43 Freq: NEEDED Status: Active Protocol: Document 04/23/20 12:08 AW (Rec: 04/23/20 12:38 AW [id number]) PT Summary Assessment and Plan Potential Rehabilitation Potential Good Status of Condition at Evaluation Evolving Summary Impairments Strength,Balance,Sensation, Transfers,Gait,Activity Tolerance Assessment Summary José Miguel is an 85 yo man seen for PT evaluation with admitting diagnosis of urosepsis. Pt has history of BPH and self-caths twice daily. At baseline, he is independent in all regards, walking his dog up to one mile at a time. Pt does note some unsteadiness is normal for him and he has fallen twice in the past one year. On evaluation, pt required CGA for ambulation 50 feet without AD, demonstrating dynamic balance deficits and impaired activity tolerance. Pt will benefit from continued acute PT to address these deficits. PT also recommends outpatient PT for balance. Goals Bed Mobility Goal Independent Transfer Goal Independent Gait Goal Independent Gait Distance 400 Other Goals - up/down 1 step with unilateral rail IND Days to Meet Goals 3 Frequency of Treatment Frequency Of Treatment Once a Day Treatment Plan Physical Therapy Treatment Plan Bed Mobility Training,Transfer Training,Gait Training, Therapeutic Exercise,Balance Retraining,Discharge Planning, Neuromuscular Re-ed, Coordination Retraining Other Recommendations and Next Treatment FGA or DGI suggested as pt Focus tolerates; progress gait distance Recommendations To Nursing Amount of Assist Needed Standby Assistance,1 Person Assist Discharge Recommendations PT Discharge Recommendations Home with Assistance, Outpatient PT Transportation Needs at Discharge Private Vehicle
[2020-04-23 12:16] VITALS: BP 121/68; PULSE 70; RESP 16; TEMP 36.6; O2SAT 95
[2020-04-23 15:25] VITALS: BP 135/73; PULSE 70; RESP 18; TEMP 37.2; O2SAT 95
[2020-04-23 19:20] VITALS: BP 114/63; PULSE 70; RESP 18; TEMP 36.9; O2SAT 95
[2020-04-23 19:32] VITALS: O2SAT 95
[2020-04-23 21:16] LABS: Vancomycin Trough 9.5 ug/mL (10-20)
[2020-04-24 01:50] VITALS: BP 133/79; PULSE 70; RESP 16; TEMP 36.7; O2SAT 96
[2020-04-24 05:02] VITALS: BP 139/79; PULSE 70; RESP 16; TEMP 36.6; O2SAT 96
[2020-04-24] MEDS: SODIUM CHLORIDE 0.9% 1,000 ML 100 ML IV (05:19)
[2020-04-24 05:44] LABS: Add Manual Diff / Slide Review NO; Basophils Absolute Auto 0 /uL (0-100); Basophils Percent Auto 0.3 % (0-2); Eosinophils Absolute Auto 200 /uL (0-450); Eosinophils Percent Auto 1.9 % (2-4); Hematocrit 44.7 % (41-53); Hemoglobin 14.8 g/dL (13.5-17.5); Lymphocytes Absolute Auto 900 /uL (1100-4500); Lymphocytes Percent Auto 9.8 % (25-40); Mean Corpuscular HGB Conc 33.2 % (30-36); Mean Corpuscular Hemoglobin 33.1 PG (26-34); Mean Corpuscular Volume 99.7 fL (80-100); Monocytes Absolute Auto 700 /uL (0-900); Monocytes Percent Auto 7.5 % (3-14); Neutrophils Absolute Auto 7700 /uL (1500-7000); Neutrophils Percent Auto 80.5 % (50-75); Platelet Count 192 X10^3/uL (150-400); Red Blood Cell Count 4.48 X10^6/uL (4.5-5.9); Red Cell Distribution Width 14.9 % (11.6-14.8); White Blood Cell Count 9.6 X10^3/uL (4.5-11.0)
[2020-04-24 05:58] LABS: Alanine Aminotransferase 23 IU/L (<50); Albumin Globulin Ratio 0.9 (1.0-2.8); Alkaline Phosphatase 78 U/L (38-126); Aspartate Aminotransferase 28 IU/L (17-59); BUN Creatinine Ratio 21.4 (6-22); Bilirubin Total 0.6 mg/dL (0.2-1.3); Blood Urea Nitrogen 21 mg/dL (9-20); Calcium 7.7 mg/dL (8.4-10.2); Carbon Dioxide 27 mmol/L (22-32); Chloride 108 mmol/L (98-107); Estimated Glomerular Filt Rate > 60.0 mL/min (>60); Globulin 3.2 g/dL (1.7-4.1); Glucose 93 mg/dL (80-110); HEMOLYSIS < 15 (0-50); Potassium 3.5 mmol/L (3.4-5.1); Sodium 136 mmol/L (137-145); Total Protein 6.2 g/dL (6.3-8.2)
[2020-04-24 06:06] LABS: NT-proBNP (BNP-Adult 18+) 2450 pg/mL (<450)
[2020-04-24 07:30] VITALS: BP 148/86; PULSE 70; RESP 20; TEMP 36.7; O2SAT 96
[2020-04-24] MEDS: VANCOMYCIN 750 MG/150 ML FROZ.PIGGY 150 MG IV ×2 (09:15→20:15)
[2020-04-24] MEDS: PANTOPRAZOLE 40 MG VIAL 20 MG IV ×2 (09:15→20:15)
[2020-04-24] MEDS: SODIUM CHLORIDE 0.9% FLUSH 10 ML IV ×2 (09:16→20:16)
[2020-04-24] MEDS: TAMSULOSIN 0.4 MG CAPSULE PO (09:16)
[2020-04-24] MEDS: ACETAMINOPHEN 325 MG TABLET 650 MG PO (09:18)
--- NOTE | 2020-04-24 11:05 | PM.PN.1 ---
Subjective Subjective Date Patient Seen: 04/24/20 Time Patient Seen: 11:08 Interval history: Urosepsis. Positive blood cultures with mental status changes and acute renal failure. Seems to be improved. White count is down. Clinically feeling better. Blood pressure is improved kidney function is improved all probably secondary to his catheter technique. At this point will continue catheterization until we discussed with urologist as an outpatient. Otherwise will continue antibiotics discussed with pharmacist probably 2-3 more days and then switched to Bactrim depending on culture results. Re-evaluate white count in the morning and follow from there. Left heart failure. Global dysfunction. Echo shows pretty significant dysfunction. Clinically actually feeling pretty well BNP is improved. Troponin had normalized I do not think this is of acute coronary syndrome discussed briefly with supercharger repair supervisor. Will work toward starting low-dose beta-luis and MELL-inhibitor before discharge probably tomorrow will begin that if things are stable. Will need quick appointment with supercharger repair supervisor as outpatient. Will repeat EKG in [facility] today but I do not think there is anything significant going on. Discussed with patient they understand. No evidence of significant heart failure at this time. Will watch closely. I do not believe this is all related to his septic issue but certainly possible that some injury was created. Will have to watch closely will see what supercharger repair supervisor feels like and see how quickly it resolves. Elevated troponin. Had resolved. See above but suspect secondary to demand ischemia. Secondary to his infection. Acute renal failure. Resolved with fluids. Due to his heart failure and going to decrease his fluids today he seems to be taking p.o. and will follow. Generalized weakness. Secondary to sepsis and possibly his cardiac status at this point. Physical therapy he certainly seems stronger. BPH. Patient is going to need surgery and has not scheduled into the month. Cardiac status may impact that. Long discussion that will leave indwelling catheter until we discussed with urologist. But certainly I am not going to discontinue it at least until infection is completely resolved. Hypertension. Stable at this time no change. Atrial fibrillation not issue at this time. GI prophylaxis on Protonix. Code status full. His COVID status is negative. DVT on prophylaxis SCDs. Disposition will probably be here till end of week and will see how things go. Exam Vital Signs (past 8 hours): - 04/24/20 05:02 04/24/20 07:30 Temperature 97.9 F 98.1 F Pulse Rate 70 70 Respiratory Rate 16 20 Blood Pressure 139/79 148/86 H Pulse Oximetry 96 96 Oxygen Delivery Method Room Air Oxygen Flow Rate 0 Objective Labs Result Diagrams: 04/24/20 05:15 04/24/20 05:15 Labs: Laboratory Results - last 24 hr 04/23/20 04/24/20 04/24/20 20:30 05:15 05:15 WBC 9.6 RBC 4.48 L Hgb 14.8 Hct 44.7 MCV 99.7 MCH 33.1 MCHC 33.2 RDW 14.9 H Plt Count 192 Neut % (Auto) 80.5 H Lymph % (Auto) 9.8 L Ocean % (Auto) 7.5 Eos % (Auto) 1.9 L Baso % (Auto) 0.3 Neut # (Auto) 7700 H Lymph # (Auto) 900 L Ocean # (Auto) 700 Eos # (Auto) 200 Baso # (Auto) 0 Sodium Potassium Chloride Carbon Dioxide BUN Creatinine Estimated GFR BUN/Creatinine Ratio Glucose Calcium Total Bilirubin AST ALT Alkaline Phosphatase NT-Pro-B Natriuret Pep 2450 H Total Protein Albumin Globulin Albumin/Globulin Ratio Vancomycin Trough 9.5 L 04/24/20 05:15 WBC RBC Hgb Hct MCV MCH MCHC RDW Plt Count Neut % (Auto) Lymph % (Auto) Ocean % (Auto) Eos % (Auto) Baso % (Auto) Neut # (Auto) Lymph # (Auto) Ocean # (Auto) Eos # (Auto) Baso # (Auto) Sodium 136 L Potassium 3.5 Chloride 108 H Carbon Dioxide 27 BUN 21 H Creatinine 0.98 Estimated GFR > 60.0 BUN/Creatinine Ratio 21.4 Glucose 93 Calcium 7.7 L Total Bilirubin 0.6 AST 28 ALT 23 Alkaline Phosphatase 78 NT-Pro-B Natriuret Pep Total Protein 6.2 L Albumin 3.0 L Globulin 3.2 Albumin/Globulin Ratio 0.9 L Vancomycin Trough PFSH Medical History Enlarged prostate History of recurrent UTI (urinary tract infection) Hypertension Pacemaker Social History household members: spouse Smoking Status: Former smoker
--- NOTE | 2020-04-24 11:20 | PT.IPTN ---
Current Diagnoses Urinary tract infection, site not specified (04/22/20) Physical Therapy Treatment Note M2 PT-IP Current Condition Start: 04/23/20 08:43 Freq: NEEDED Status: Active Protocol: Document 04/23/20 12:08 AW (Rec: 04/23/20 12:38 AW [id number]) Physical Therapy Current Condition Current Condition Evaluation Date 04/23/20 Treatment Diagnosis urosepsis; generalized weakness; difficulty in walking Onset Date 04/21/20 Precautions Other Precautions contact precautions in place at time of eval M3 PT-IP Subjective Start: 04/23/20 08:43 Freq: NEEDED Status: Active Protocol: Document 04/24/20 11:03 CLB (Rec: 04/24/20 12:47 CLB [id number]) Subjective Physical Therapy Visit Type Type Treatment Note Visit Start Time 11:01 Visit Stop Time 11:20 Total Visit Minutes 19 Notes Pt's present. Number of WET END OPERATOR Visits 1 Physical Therapy Visit Comments Patient Comments Pt willing to get up and ambulate, refused walking in cotter, pt states he feels a little weak today and wants to use FWW for gait. M4 PT-IP Mobility and Gait Start: 04/23/20 08:43 Freq: NEEDED Status: Active Protocol: Document 04/24/20 11:03 CLB (Rec: 04/24/20 12:47 CLB [id number]) PT-Bed Mobility Assessment Supine to Sit Supine to Sit Standby Assistance Sit to Supine Sit to Supine Standby Assistance Scooting Scooting to Edge of Bed Standby Assistance PT-Transfer Assessment Sit to and From Stand Sit to and from Stand Contact Guard Assistance,Use of Upper Extremities Equipment Transfer Assistive Device None,Gait Belt,Front Wheeled Walker Orthotic/Prosthetic Devices or Brace: No Transfers Transfer Destination Bed,Chair Transfer Technique Stand Step Pivot Transfer Ability Level of Assist Standby Assistance,Contact Guard Assistance,Use of Upper Extremities Comments Mobility Comments Pt in bed upon arrival, pt able to get OOB SBA requesting to use FWW. Pt stood CGA and ambulated in room with FWW stating that his will get a walker from [employer]. Pt required CGA and cues for proper walker management. Pt then ambulated w/o AD CGA with head turns horizontal and vertical with LOB requiring assist of GB to steady pt. Pt sat in chair CGA and imaging entered room for testing, pt stood SBA and transferred to bed requiring SBA for sit- supine. Pt left in bed with present bed alarm on. Gait Assessment Gait Gait Assistance Required: Standby Assistance,Contact Guard Assist,1 Person Assist Distance (Feet) 75 Assistive Devices Assistive Device Gait Belt Orthotic/Prosthetic Devices or Brace: No Gait Deviations General Gait Pattern Antalgic,Decreased Feet Clearance Factors Limiting Gait Function Factors Limiting Gait Function Decreased Activity Tolerance, Decreased Sensation,Decreased Strength,Poor Balance,Poor Safety Awareness Comments Gait Comments Pt ambulates with excessive knee flexion requiring cues for walker management then required CGA w/o AD and LOB during head turns horizontal> vertical. Stair Climbing Assessment Comments Stair Climbing Comments Not assessed. PT-Balance Assessment Sitting Balance and Reactions Static Sitting Balance Ability Normal Dynamic Sitting Balance Ability Good M5 PT-IP Objective Assessments Start: 04/23/20 08:43 Freq: NEEDED Status: Active Protocol: Document 04/23/20 12:08 AW (Rec: 04/23/20 12:38 AW [id number]) Orientation Orientation/Cognition Level of Alertness Alert Orientation Name,Day of Week,Place, Situation Language Function Ability No Deficits Noted Safety Awareness Decreased Safety Awareness Memory Description No Deficits Noted Gross Range of Motion Lower Extremity ROM Assessment Within Functional Limits Strength Lower Extremity Strength Assessment Within Functional Limits Comments Strength Comments BLE grossly 5/5 on MMT but weak quads observed during gait. Coordination Assessment Gross Coordination Gross Coordination WNL Sensation Assessment Sensation Gross Sensation Right LE Impaired,Left LE Impaired Light Touch Impaired Comments Sensation Comments Pt endorses fuzzy feeling in bilateral plantar feet which is consistent with his baseline. Dorsal surfaces are not affected. Muscle Tone Muscle Tone WNL Yes M6 PT-IP Treatment Start: 04/23/20 08:43 Freq: NEEDED Status: Active Protocol: Document 04/23/20 12:08 AW (Rec: 04/23/20 12:38 AW [id number]) Physical Therapy Treatment Education Education Provided Safety Other Treatments Other Treatment Performed Provided education on role of PT, plan of care, and rationale for use of an assistive device. M7 PT-IP Assessment and Plan Start: 04/23/20 08:43 Freq: NEEDED Status: Active Protocol: Document 04/24/20 11:03 CLB (Rec: 04/24/20 12:47 CLB [id number]) PT Summary Assessment and Plan Potential Rehabilitation Potential Good Status of Condition at Evaluation Evolving Summary Impairments Strength,Balance,Sensation, Transfers,Gait,Activity Tolerance Assessment Summary Pt requires SBA for bed mobility and transfers. Pt ambulated with FWW requiring CGA and cues to stay inside walker, pt required CGA for gait w/o AD and had LOB with head turns. Pt states she will be getting a walker for home use and pt stated he felt more steady with walker use. Pt will benefit from continued acute PT to address these deficits. PT also recommends outpatient PT for balance. Goals Bed Mobility Goal Independent Transfer Goal Independent Gait Goal Independent Gait Distance 400 Other Goals - up/down 1 step with unilateral rail IND Days to Meet Goals 3 Frequency of Treatment Frequency Of Treatment Once a Day Treatment Plan Physical Therapy Treatment Plan Bed Mobility Training,Transfer Training,Gait Training, Therapeutic Exercise,Balance Retraining,Discharge Planning, Neuromuscular Re-ed, Coordination Retraining Other Recommendations and Next Treatment gait with 4WW Focus Recommendations To Nursing Amount of Assist Needed Standby Assistance,1 Person Assist Discharge Recommendations PT Discharge Recommendations Home with Assistance, Outpatient PT Transportation Needs at Discharge Private Vehicle
[2020-04-24 11:35] VITALS: BP 141/76; PULSE 70; RESP 20; TEMP 36.8; O2SAT 96
[2020-04-24 13:04] LABS: Creatine Kinase 56 U/L (55-170)
--- NOTE | 2020-04-24 13:15 | CM.DPNOTE ---
DCP Cont According to Dr Handy, patient will likely remain admitted through the weekend, he does not anticipate patient will have any needs from DCP team. No need for HH at this time. Supportive spouse Ashlee at bedside, denies needs at this time. Cleared by therapy team for return home, outpatient PT. Plan: DC home w/spouse expected when medically cleared, no need for HH indicated at this time Will continue to follow closely in case DC needs or concerns arise JW
[2020-04-24 13:16] LABS: Troponin I < 0.012 ng/mL (0.01-0.034)
--- NOTE | 2020-04-24 14:37 | OT.IP.TRT ---
Current Diagnoses Urinary tract infection, site not specified (04/22/20) Occupational Therapy Treatment Note M2 OT-IP Current Condition Start: 04/23/20 12:19 Freq: Status: Active Protocol: Document 04/23/20 12:19 CGR (Rec: 04/23/20 12:58 CGR [id number]) Occupational Therapy Current Condition Current Condition Evaluation Date 04/23/20 Treatment Diagnosis Generalized weakness, UTI Diagnosis Onset Date 04/22/20 M3 OT- IP Subjective and Pain Start: 04/23/20 12:19 Freq: Status: Active Protocol: Document 04/24/20 14:34 CGR (Rec: 04/24/20 14:36 CGR [id number]) OT- Subjective Occupational Therapy Visit Type Type Administrative Note Notes Attempted to see pt for OT services x2. Pt declined activity both times. Will hold and continue to follow.
[2020-04-24 15:55] VITALS: BP 154/83; PULSE 70; RESP 17; TEMP 36.7; O2SAT 97
[2020-04-24 20:35] VITALS: BP 156/83; PULSE 69; RESP 16; TEMP 36.7; O2SAT 96
[2020-04-25] VITALS (12 sets, daily range): BP systolic 145–159; BP diastolic 77–87; PULSE 69–83; RESP 14–20; TEMP 36.6–36.8; O2SAT 94–98
[2020-04-25] MEDS: ZOLPIDEM 5 MG TABLET PO (03:36)
[2020-04-25 06:58] LABS: Add Manual Diff / Slide Review NO; Basophils Absolute Auto 0 /uL (0-100); Basophils Percent Auto 0.6 % (0-2); Eosinophils Absolute Auto 100 /uL (0-450); Eosinophils Percent Auto 1.9 % (2-4); Hematocrit 45.9 % (41-53); Hemoglobin 15.1 g/dL (13.5-17.5); Lymphocytes Absolute Auto 1100 /uL (1100-4500); Lymphocytes Percent Auto 14.4 % (25-40); Mean Corpuscular Hemoglobin 32.7 PG (26-34); Mean Corpuscular Volume 99.2 fL (80-100); Monocytes Absolute Auto 700 /uL (0-900); Monocytes Percent Auto 9.1 % (3-14); Neutrophils Absolute Auto 5800 /uL (1500-7000); Platelet Count 215 X10^3/uL (150-400); Red Blood Cell Count 4.62 X10^6/uL (4.5-5.9); Red Cell Distribution Width 14.8 % (11.6-14.8); White Blood Cell Count 7.8 X10^3/uL (4.5-11.0)
[2020-04-25 07:08] LABS: BUN Creatinine Ratio 21.4 (6-22); Blood Urea Nitrogen 18 mg/dL (9-20); Carbon Dioxide 26 mmol/L (22-32); Chloride 109 mmol/L (98-107); Estimated Glomerular Filt Rate > 60.0 mL/min (>60); Glucose 92 mg/dL (80-110); HEMOLYSIS 15 (0-50); Potassium 3.7 mmol/L (3.4-5.1); Sodium 136 mmol/L (137-145)
[2020-04-25 07:15] LABS: NT-proBNP (BNP-Adult 18+) 12400 pg/mL (<450)
[2020-04-25] MEDS: VANCOMYCIN 750 MG/150 ML FROZ.PIGGY 150 MG IV (09:27)
[2020-04-25] MEDS: SODIUM CHLORIDE 0.9% FLUSH 10 ML IV ×2 (09:28→18:50)
[2020-04-25] MEDS: PANTOPRAZOLE 20 MG TABLET PO ×2 (09:28→18:50)
[2020-04-25] MEDS: TAMSULOSIN 0.4 MG CAPSULE PO (09:28)
--- NOTE | 2020-04-25 10:50 | PM.PN.1 ---
Subjective Subjective Date Patient Seen: 04/25/20 Time Patient Seen: 10:50 Interval history: Patient overall feeling well this morning. Energy level is good. Got up moved around yesterday. Did well. No dizziness no lightheadedness. No chest pain no shortness of breath. Urination has been good. Normal bowel movements. Exam Vital Signs (past 8 hours): - 04/25/20 06:38 04/25/20 08:31 04/25/20 08:35 Temperature 97.9 F Pulse Rate 69 83 83 Respiratory Rate 16 20 16 Blood Pressure 159/79 H 151/83 H Pulse Oximetry 96 95 95 Oxygen Delivery Method Room Air Oxygen Flow Rate 0 Narrative Exam Narrative: Alert smiling elderly male no acute distress. HEENT is unremarkable. Neck supple without adenopathy JVD or bruits. Lungs are clear. Heart regular rate and rhythm without murmurs clicks rubs or gallops. Abdomen is soft positive bowel sounds nontender. Extremities without cyanosis clubbing edema. Neurologic exam is nonfocal. He is smiling interactive appropriate and interactive. Objective Labs Result Diagrams: 04/25/20 06:30 04/25/20 06:30 Labs: Laboratory Results - last 24 hr 04/24/20 04/25/20 04/25/20 12:24 06:30 06:30 WBC 7.8 RBC 4.62 Hgb 15.1 Hct 45.9 MCV 99.2 MCH 32.7 MCHC 33.0 RDW 14.8 Plt Count 215 Neut % (Auto) 74.0 Lymph % (Auto) 14.4 L [place] % (Auto) 9.1 Eos % (Auto) 1.9 L Baso % (Auto) 0.6 Neut # (Auto) 5800 Lymph # (Auto) 1100 [place] # (Auto) 700 Eos # (Auto) 100 Baso # (Auto) 0 Sodium 136 L Potassium 3.7 Chloride 109 H Carbon Dioxide 26 BUN 18 Creatinine 0.84 Estimated GFR > 60.0 BUN/Creatinine Ratio 21.4 Glucose 92 Calcium 8.0 L Total Creatine Kinase 56 CK-MB (CK-2) TNP CK-MB (CK-2) Rel Index TNP Troponin I < 0.012 NT-Pro-B Natriuret Pep [address] H [facility] Medical History Enlarged prostate History of recurrent UTI (urinary tract infection) Hypertension Pacemaker Social History household members: spouse Smoking Status: Former smoker Assessment & Plan Assessment & Plan narrative: Left heart failure. Etiologies on care appears to be global. Could be secondary to sepsis. Will see how he responds. Hopefully respond well. Had discussed with furniture detailer yesterday. Will begin MELL-inhibitor and low-dose beta-luis. We discussed this with them. They understand goals. Expectations. I think we can discontinue tele and follow from there. Patient understands will call change. Sepsis syndrome with urosepsis cause. Cultures have returned today. White count continues to normalize. Asymptomatic. Seems to be doing extremely well. Cultures returned sensitive to Bactrim. Will discontinue vancomycin add bathroom. If patient is stable will discharge tomorrow. Patient and understand. Long discussion about this. BPH. Patient really does not want have longstanding catheterization. I certainly do not want to make any changes until we get healthy and will be able to discuss with urologist. We had a long discussion about this he understands will call if change. No other changes. Acute renal failure. Continues to improve. Secondary to dehydration and sepsis. Will follow. Elevated troponin. Probably secondary to demand ischemia. Do not believe he had a significant injury. Will follow. Generalized weakness slowly improving. Does not appear to be an issue with this going home. All secondary to his illness. Seems to be recovering well. Hypertension. Not well controlled but are going to begin adding MELL-inhibitor and beta-luis will see how he does. Atrial fibrillation stable at this time. GI prophylaxis on Protonix. Code status full. COVID status negative. DVT prophylaxis on SCDs and mobilizing. Disposition. Hopefully discharge tomorrow.
[2020-04-25] MEDS: TRIMETH/SULFA 160/800 (DS) TABLET 1 TAB PO ×2 (11:14→18:57)
[2020-04-25] MEDS: carvediloL 3.125 MG TABLET PO ×2 (11:14→18:49)
[2020-04-25] MEDS: lisinopriL 5 MG TABLET PO (11:15)
--- NOTE | 2020-04-25 14:12 | PT.IPTN ---
Current Diagnoses Urinary tract infection, site not specified (04/22/20) Physical Therapy Treatment Note M2 PT-IP Current Condition Start: 04/23/20 08:43 Freq: NEEDED Status: Active Protocol: Document 04/23/20 12:08 AW (Rec: 04/23/20 12:38 AW [id number]) Physical Therapy Current Condition Current Condition Evaluation Date 04/23/20 Treatment Diagnosis urosepsis; generalized weakness; difficulty in walking Onset Date 04/21/20 Precautions Other Precautions contact precautions in place at time of eval M3 PT-IP Subjective Start: 04/23/20 08:43 Freq: NEEDED Status: Active Protocol: Document 04/25/20 13:51 CLB (Rec: 04/25/20 15:56 CLB [id number]) Subjective Physical Therapy Visit Type Type Treatment Note Visit Start Time 13:48 Visit Stop Time 16:12 Total Visit Minutes 24 Number of QUALITY TECHNICIAN FIBERGLASS Visits 2 Physical Therapy Visit Comments Patient Comments Pt willing to ambulate in cotter . M4 PT-IP Mobility and Gait Start: 04/23/20 08:43 Freq: NEEDED Status: Active Protocol: Document 04/25/20 13:51 CLB (Rec: 04/25/20 15:56 CLB [id number]) PT-Bed Mobility Assessment Supine to Sit Supine to Sit Standby Assistance Scooting Scooting to Edge of Bed Standby Assistance PT-Transfer Assessment Sit to and From Stand Sit to and from Stand Contact Guard Assistance,Use of Upper Extremities Equipment Transfer Assistive Device None,Gait Belt,4 Wheeled Walker Orthotic/Prosthetic Devices or Brace: No Transfers Transfer Destination Chair Transfer Technique walked with 4WW Transfer Ability Level of Assist Contact Guard Assistance,Use of Upper Extremities Comments Mobility Comments Pt in bed upon arrival, pt requires SBA for bed mobility. Pt sat on EOB while QUALITY TECHNICIAN FIBERGLASS educated pt on 4WW use for safety. Pt then locked brakes on 4WW and stood CGA. Pt ambulated in room ~15ft w/4WW/ CGA to assure safety with 4WW, then ambulated in cotter ~210ft w/4WW/CGA. Pt returned to room with cues to lock brakes and CGA for stand to sit. Pt left in chair awaiting OT for shower. Informed RN of pt improved mobility. Gait Assessment Gait Gait Assistance Required: Contact Guard Assist,1 Person Assist Distance (Feet) 225 Assistive Devices Assistive Device Gait Belt,4 Wheeled Walker Orthotic/Prosthetic Devices or Brace: No Gait Deviations General Gait Pattern Antalgic,Decreased Feet Clearance Factors Limiting Gait Function Factors Limiting Gait Function Decreased Activity Tolerance, Decreased Sensation,Decreased Strength,Poor Balance,Poor Safety Awareness Comments Gait Comments see mobility comments Stair Climbing Assessment Comments Stair Climbing Comments Not assessed. PT-Balance Assessment Sitting Balance and Reactions Static Sitting Balance Ability Normal Dynamic Sitting Balance Ability Good M5 PT-IP Objective Assessments Start: 04/23/20 08:43 Freq: NEEDED Status: Active Protocol: Document 04/23/20 12:08 AW (Rec: 04/23/20 12:38 AW [id number]) Orientation Orientation/Cognition Level of Alertness Alert Orientation Name,Day of Week,Place, Situation Language Function Ability No Deficits Noted Safety Awareness Decreased Safety Awareness Memory Description No Deficits Noted Gross Range of Motion Lower Extremity ROM Assessment Within Functional Limits Strength Lower Extremity Strength Assessment Within Functional Limits Comments Strength Comments BLE grossly 5/5 on MMT but weak quads observed during gait. Coordination Assessment Gross Coordination Gross Coordination WNL Sensation Assessment Sensation Gross Sensation Right LE Impaired,Left LE Impaired Light Touch Impaired Comments Sensation Comments Pt endorses fuzzy feeling in bilateral plantar feet which is consistent with his baseline. Dorsal surfaces are not affected. Muscle Tone Muscle Tone WNL Yes M6 PT-IP Treatment Start: 04/23/20 08:43 Freq: NEEDED Status: Active Protocol: Document 04/23/20 12:08 AW (Rec: 04/23/20 12:38 AW [id number]) Physical Therapy Treatment Education Education Provided Safety Other Treatments Other Treatment Performed Provided education on role of PT, plan of care, and rationale for use of an assistive device. M7 PT-IP Assessment and Plan Start: 04/23/20 08:43 Freq: NEEDED Status: Active Protocol: Document 04/25/20 13:51 CLB (Rec: 04/25/20 15:56 CLB [id number]) PT Summary Assessment and Plan Potential Rehabilitation Potential Good Status of Condition at Evaluation Evolving Summary Impairments Strength,Balance,Sensation, Transfers,Gait,Activity Tolerance Progress Towards Goals Progressing Toward Goals Assessment Summary Pt improved with gait distance to ~200ft with 4WW/CGA. Pt is SBA for bed mobility and CGA for sit<>stand. Pt continues to ambulate with knee flx during gait but improved with activity tolerance overall. Goals Bed Mobility Goal Independent Transfer Goal Independent Gait Goal Independent Gait Distance 400 Other Goals - up/down 1 step with unilateral rail IND Days to Meet Goals 3 Frequency of Treatment Frequency Of Treatment Once a Day Treatment Plan Physical Therapy Treatment Plan Bed Mobility Training,Transfer Training,Gait Training, Therapeutic Exercise,Balance Retraining,Discharge Planning, Neuromuscular Re-ed, Coordination Retraining Other Recommendations and Next Treatment gait with 4WW, stair training Focus if appropriate. Recommendations To Nursing Amount of Assist Needed Standby Assistance,1 Person Assist Discharge Recommendations PT Discharge Recommendations Home with Assistance, Outpatient PT Transportation Needs at Discharge Private Vehicle
--- NOTE | 2020-04-25 15:00 | OT.IP.TRT ---
Current Diagnoses Urinary tract infection, site not specified (04/22/20) Occupational Therapy Treatment Note M2 OT-IP Current Condition Start: 04/23/20 12:19 Freq: Status: Active Protocol: Document 04/23/20 12:19 CGR (Rec: 04/23/20 12:58 CGR [id number]) Occupational Therapy Current Condition Current Condition Evaluation Date 04/23/20 Treatment Diagnosis Generalized weakness, UTI Diagnosis Onset Date 04/22/20 M3 OT- IP Subjective and Pain Start: 04/23/20 12:19 Freq: Status: Active Protocol: Document 04/25/20 15:38 CGR (Rec: 04/25/20 15:43 CGR [id number]) OT- Subjective Occupational Therapy Visit Type Type Progress Note Visit Start Time 14:27 Visit Stop Time 15:00 Total Visit Minutes 33 Notes Pt requesting shower. OT Pain Assessment Pain When Pain Assessed At Rest Pain Present Pain Present Denied Pain M4 OT- IP ADL's Start: 04/23/20 12:19 Freq: Status: Active Protocol: Document 04/25/20 15:38 CGR (Rec: 04/25/20 15:43 CGR [id number]) OT [id number] Comments OT Self-Feeding Comments Not meal time OT ADL-Grooming General Evaluation Grooming Ability Standby Assistance Areas Needing Assistance Face Washing Comments OT Grooming Comments Performed in shower OT ADL-Oral Care Comments Oral Care Comments Not performed OT ADL-Dressing General Eval Upper Body Dressing Ability Standby Assistance Lower Body Dressing Ability Minimal Assistance Areas Needing Assistance Retrieving/Set-up of Clothing, Socks Comments OT Dressing Comments hospital gown and socks. Pt needed assist with sock to the right foot, pt likely to be able to have done without assist except that his feet were damp from shower. OT ADL-Toileting Comments OT Toileting Comments not performed, pt with krystle OT ADL-Bathing Bathing Type Bathing Type Shower General Evaluation Bathing Ability Standby Assistance Areas Needing Assistance Retrieving/Setting Up Items Devices Bathing Equipment Hand Held Shower Sprayer, Shower Chair with Arms,Grab Bars Comments OT Bathing Comments Pt performed bathing while seated. M5 OT- IP IADL's Start: 04/23/20 12:19 Freq: Status: Active Protocol: Document 04/23/20 12:19 CGR (Rec: 04/23/20 12:58 R [id number]) OT-Instrumental Activities of Daily Living Deficits IADL Deficits Identified No Deficits Home Safety Awareness Awareness of Need for Assistance at Home Good Awareness Ability to Problem Solve Emergency Able to Problem Solve Situations Medication Management Medication Management No Deficits Identified Money Management Money Management No Deficits Identified Meal Preparation Meal Preparation Caregiver Provides Assist L D Rn L D Rn Caregiver Provides Assist Driving 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 M6 OT- IP Functional Cognition Start: 04/23/20 12:19 Freq: Status: Active Protocol: Document 04/23/20 12:19 CGR (Rec: 04/23/20 12:58 R [id number]) Cognitive Factors Limiting Selfcare Function Cognitive Ability Level of Alertness Alert Patient Orientation Name,Age,Birthday,Month,Date, Year,Day of Week,Place, Situation Attention Span Ability Capable of Focused Attention, Capable of Sustained Attention Ability to Follow Commands Able to Follow One Step Commands with Increased Time, Able to Follow One Step Commands with Repetition Memory Description No Deficits Noted Safety Awareness No Deficits Noted Cognitive Comments Cognitive Assessment Comments Pt appears to be at his baseline at this time. OT- Vision and Hearing OT- Hearing Assessment OT- Hearing Assessment Hearing Impaired,Use of Hearing Aids OT- Vision Assessment Visual Acuity Glasses For Reading Visual Attentiveness WFL Occular Pursuits WFL Visual Convergence WFL Vision Assessment Comments Occular pursuits were slow but WFL M7 OT- IP Mobility and Balance Start: 04/23/20 12:19 Freq: Status: Active Protocol: Document 04/25/20 15:38 CGR (Rec: 04/25/20 15:43 CGR [id number]) OT-Transfer Assessment Sit to and From Stand Sit to and from Stand Standby Assistance Transfers Transfer Ability Standby Assistance Technique Transfer Destination Bedside Commode,Chair,Shower Stall Transfer Technique Stand Step Pivot Devices Transfer Assistive Devices Gait Belt,Front Wheeled Walker Comments Mobility Comments Pt states he is still feeling more stable with the use of the walker. OT- Balance Assessment Sitting Balance and Reactions Static Sitting Balance Ability Good Dynamic Sitting Balance Ability Fair M8 OT- IP Objective Assessments Start: 04/23/20 12:19 Freq: Status: Active Protocol: Document 04/23/20 12:19 CGR (Rec: 04/23/20 12:58 R [id number]) OT Gross Range of Motion Upper Extremity Range of Motion Assessment Within Functional Limits OT Strength Upper Extremity Strength Assessment Within Functional Limits Comments Strength Comments grossly 4+/5 OT- Coordination Assessment Comments Coordination Comments Noted poor coordination with simple thumb to finger activites. Will continue to follow. OT-Muscle Tone Assessment Muscle Tone WNL Yes OT Sensation Assessment Edema Edema Absent M9 OT- IP Assessment and Plan Start: 04/23/20 12:19 Freq: Status: Active Protocol: Document 04/25/20 15:38 CGR (Rec: 04/25/20 15:43 CGR [id number]) OT Summary Assessment and Plan Potential Rehabilitation Potential Excellent Analytic Complexity at Evaluation Low Summary OT Impairments Coordination,Functional Mobility,Grooming,Dressing, Toileting,Bathing,Toilet Transfers,Shower Transfers, Activity Tolerance Progress Towards Goals Progressing Toward Goals,Slow Progress due to Activity Tolerance Assessment Summary Pt agreeable to shower on this date. Grossly, pt is SBA for mobility and simple ADLs. Pt may benefit from 1-2 more OT sessions to review home safety . Goals Grooming Goal Independent Dressing Goal Independent Toileting Goal Independent Bathing Goal Independent Toilet Transfer Goal Independent Shower Transfer Goal Independent Days to Meet Goals 2 Frequency of Treatment Frequency Of Treatment Once a Day Treatment Plan OT Treatment Plan ADL Training,Patient/Family Education,Discharge Planning Other Treatment Recommendations and Next home safety, ADls standing Treatment Focus Discharge Recommendations OT Discharge Recommendations Home with Assistance Other Discharge Recommendations grab bars for home bath. Home Equipment Needs Pt is continuing to use a 2ww with OT and may need one for discharge home, defer recommendations to P.T. Transportation Needs at Discharge Private Vehicle
[2020-04-25] MEDS: ZOLPIDEM 5 MG TABLET 2.5 MG PO (19:09)
[2020-04-26 06:17] VITALS: BP 147/88; PULSE 70; RESP 16; TEMP 36.6; O2SAT 96
[2020-04-26 08:00] VITALS: BP 149/83; PULSE 73; RESP 18; TEMP 36.7; O2SAT 97
[2020-04-26 08:05] VITALS: PULSE 70; RESP 16; O2SAT 97
[2020-04-26 08:39] LABS: Add Manual Diff / Slide Review NO; Basophils Absolute Auto 100 /uL (0-100); Basophils Percent Auto 0.7 % (0-2); Eosinophils Absolute Auto 100 /uL (0-450); Eosinophils Percent Auto 1.9 % (2-4); Hematocrit 47.9 % (41-53); Lymphocytes Absolute Auto 1200 /uL (1100-4500); Lymphocytes Percent Auto 16.4 % (25-40); Mean Corpuscular HGB Conc 33.5 % (30-36); Mean Corpuscular Hemoglobin 33.1 PG (26-34); Mean Corpuscular Volume 98.8 fL (80-100); Monocytes Absolute Auto 700 /uL (0-900); Monocytes Percent Auto 10.2 % (3-14); Neutrophils Absolute Auto 5100 /uL (1500-7000); Neutrophils Percent Auto 70.8 % (50-75); Platelet Count 244 X10^3/uL (150-400); Red Blood Cell Count 4.85 X10^6/uL (4.5-5.9); Red Cell Distribution Width 14.5 % (11.6-14.8); White Blood Cell Count 7.2 X10^3/uL (4.5-11.0)
[2020-04-26 08:46] LABS: BUN Creatinine Ratio 20.2 (6-22); Blood Urea Nitrogen 17 mg/dL (9-20); Calcium 8.1 mg/dL (8.4-10.2); Carbon Dioxide 24 mmol/L (22-32); Chloride 108 mmol/L (98-107); Estimated Glomerular Filt Rate > 60.0 mL/min (>60); Glucose 94 mg/dL (80-110); HEMOLYSIS < 15 (0-50); Potassium 3.7 mmol/L (3.4-5.1); Sodium 137 mmol/L (137-145)
[2020-04-26 08:55] LABS: NT-proBNP (BNP-Adult 18+) 15500 pg/mL (<450)
[2020-04-26 09:11] VITALS: BP 147/88; PULSE 70; PULSE 80
[2020-04-26] MEDS: SODIUM CHLORIDE 0.9% FLUSH 10 ML IV (09:11)
[2020-04-26] MEDS: TRIMETH/SULFA 160/800 (DS) TABLET 1 TAB PO (09:11)
[2020-04-26] MEDS: carvediloL 3.125 MG TABLET PO (09:11)
[2020-04-26] MEDS: PANTOPRAZOLE 20 MG TABLET PO (09:11)
[2020-04-26] MEDS: lisinopriL 5 MG TABLET PO (09:11)
[2020-04-26] MEDS: TAMSULOSIN 0.4 MG CAPSULE PO (09:11)
--- NOTE | 2020-04-26 09:23 | PM.DS.1 ---
History of Present Illness History of Present Illness Date Patient Seen: 04/26/20 Time Patient Seen: 09:23 Date of Onset of Symptoms: 04/26/20 Chief complaint: Weakness Narrative: See dictated H&P Discharge Providers Provider Date of admission: 04/22/20 13:24 Discharge Date: 04/26/20 Primary care physician: Fidel Handy MD Consults: 04/22/20 18:42 Consult to Discharge Planning Routine Comment: Consult to Occupational Therapy Evaluate & Treat Comment: Physician Instructions: Evaluate and treat Consult to Physical Therapy Evaluate & Treat Comment: Physician Instructions: Evaluate and Treat 04/22/20 20:24 Consult to [facility] [place] - Medical Record Technician Routine Comment: set up home delivery of self catheter supplies. 04/24/20 11:04 Consult to Physical Therapy Evaluate & Treat Comment: Physician Instructions: Evaluate and Treat 04/26/20 09:11 Consult to Home Health Routine Comment: Reason For Exam: weakness s/p sepsis Discharge provider: Fidel Handy MD Summary Hospital Course Discharge Diagnosis: Urosepsis Left heart failure BPH Acute renal failure Elevated troponin Generalized weakness Hypertension AFib Gross hematuria Hospital Course: Urosepsis. Patient had delirium, low blood pressure, renal failure all presume secondary to sepsis syndrome. He was admitted to the hospital placed on IV antibiotics. He within 24 hours had a Gram-positive echo psych growing in his blood. White count was improving clinically feeling much better on 24 hours. MRSA was undiagnosed both urine and in his blood. Continued to feel well after fluid hydration. Fluid hydration was having the be modified secondary to his diagnosed LVH dysfunction. And fluids after 48 hours were discontinued completely. He clinically did well. Was improving certainly on day 2. On day 3 was started on p.o. antibiotics and did well with normalized white count and culture showed Bactrim was the drug of choice and he was placed on that. He was feeling great on day of discharge and will be followed as an outpatient. Re-evaluated on here this week. will call if any problems. Left heart failure. Patient with initial congestion on chest x-ray. Echo on the following day showed pretty significant global hypo kinesis. Etiology was somewhat unclear. He had an elevated troponin but it was felt to be secondary to demand ischemia certainly recovered quite quickly. CPK never elevated. He had a normal EKG both on admission and day 2. Briefly discussed with exchange clerk and on day 3 he had lisinopril and Coreg started for his congestive heart failure. Tolerated well over 24 hours will be followed as an outpatient. He will have an outpatient cardiology evaluation did not appear to be urgent. Certainly may need to have an implantable device if not improved. This could be worsened with his sepsis syndrome and may improve on its own but will see how things go. BPH. Biggest issue he has probably at this point which is what brought him in because he was self cathing inappropriately. Will continue catheter in call urologist. Will see what they recommend. I am not sure he can have surgery to his cardiac status is more definitive evaluated. He understands. Questions answered. discussed at this point will stay with catheter indwelling until we get into a better place hopefully we can go back to self cathing on a more appropriate level. Acute renal failure. Resolve the fluid hydration. Probably secondary to pre renal and sepsis. Normalized without issue. Elevated troponin. Demand ischemia. See above. Generalized weakness. PT was consulted. Otherwise no changes. He will be followed at home. We discussed home health he nor his feel that is adequate at this point and we will set up outpatient physical therapy once we have things more improved. Hypertension stable certainly starting on new medicines. AFib unremarkable during this admission. Code status was negative. Exam Vital Signs (past 8 hours): - 04/26/20 06:17 04/26/20 08:00 04/26/20 08:05 Temperature 97.9 F 98.0 F Pulse Rate 70 73 70 Respiratory Rate 16 18 16 Blood Pressure 147/88 H 149/83 H Pulse Oximetry 96 97 97 04/26/20 09:11 Temperature Pulse Rate 80 Respiratory Rate Blood Pressure 147/88 H Pulse Oximetry Oxygen Delivery Method Room Air Oxygen Flow Rate 0 Narrative Exam Narrative: Alert male no acute distress smiling interactive sitting in chair. Mucous membranes moist. Neck supple without adenopathy. Lungs are clear. Heart regular rate and rhythm without murmurs clicks rubs or gallops. Abdomen is soft positive bowel sounds nontender. Extremities without cyanosis clubbing edema. Neurologic exam is unremarkable. No flank pain. Skin is without rash Objective Labs Result Diagrams: 04/26/20 08:10 04/26/20 08:10 Labs: Laboratory Results - last 24 hr 04/26/20 04/26/20 08:10 08:10 WBC 7.2 RBC 4.85 Hgb 16.0 Hct 47.9 MCV 98.8 MCH 33.1 MCHC 33.5 RDW 14.5 Plt Count 244 Neut % (Auto) 70.8 Lymph % (Auto) 16.4 L [place] % (Auto) 10.2 Eos % (Auto) 1.9 L Baso % (Auto) 0.7 Neut # (Auto) 5100 Lymph # (Auto) 1200 [place] # (Auto) 700 Eos # (Auto) 100 Baso # (Auto) 100 Sodium 137 Potassium 3.7 Chloride 108 H Carbon Dioxide 24 BUN 17 Creatinine 0.84 Estimated GFR > 60.0 BUN/Creatinine Ratio 20.2 Glucose 94 Calcium 8.1 L NT-Pro-B Natriuret Pep 77915 H PFSH Medical History Enlarged prostate History of recurrent UTI (urinary tract infection) Hypertension Pacemaker Social History household members: spouse Smoking Status: Former smoker Discharge Assessment & Plan Assessment and Plan Assessment: See above. Patient will be discharged home with follow-up with me later this week. Discharge Plan Discharge Plan Patient Disposition: Home Discharge orders & Medications Prescriptions: New sulfamethoxazole-trimethoprim 800-160 mg Tablet 1 tab PO BID Qty: 20 RF: 0 carvedilol [Coreg] 3.125 mg Tablet 3.125 mg PO BID Qty: 60 RF: 2 lisinopril 5 mg Tablet 5 mg PO DAILY Qty: 30 RF: 2 sulfamethoxazole-trimethoprim [Bactrim DS] 800-160 mg tablet 1 tab PO BID Qty: 20 RF: 0 lisinopril 5 mg tablet 5 mg PO DAILY Qty: 30 RF: 0 carvedilol [Coreg] 3.125 mg tablet 3.125 mg PO BID Qty: 60 RF: 0 Continued tamsulosin 0.4 mg capsule 0.4 mg PO DAILY RF: 0 Discontinued nitrofurantoin macrocrystal 50 mg capsule 50 mg PO BEDTIME RF: 0 Follow up/Referrals: Fidel Handy MD [Primary Care Provider] - 3-5 Days (patient to call for appointment mon or ) Discharge Health Status Multidrug resistant organism: No MDRO Diet/Activity/Treatments Diet: Diet as Tolerated Catheter: 2-way King Catheter comment: please teach cath care Skin/Wound/Dressing Care Report to your healthcare provider any signs of infection, such as:: chills, fever, night sweats and increased pain Visit Report/Discharge Packet Instructions: How to Care for Your King Catheter -- Male, DI for Urinary Tract Infection (UTI), How to Prevent Falls Discharge Data Primary Care Provider: Fidel Handy
--- NOTE | 2020-04-26 10:13 | PT.IPTN ---
Current Diagnoses Urinary tract infection, site not specified (04/22/20) Physical Therapy Treatment Note M2 PT-IP Current Condition Start: 04/23/20 08:43 Freq: NEEDED Status: Discharge Protocol: Document 04/23/20 12:08 AW (Rec: 04/23/20 12:38 AW [id number]) Physical Therapy Current Condition Current Condition Evaluation Date 04/23/20 Treatment Diagnosis urosepsis; generalized weakness; difficulty in walking Onset Date 04/21/20 Precautions Other Precautions contact precautions in place at time of eval M3 PT-IP Subjective Start: 04/23/20 08:43 Freq: NEEDED Status: Discharge Protocol: Document 04/26/20 09:58 CLB (Rec: 04/26/20 13:30 CLB [id number]) Subjective Physical Therapy Visit Type Type Treatment Note Visit Start Time 09:58 Visit Stop Time 10:13 Total Visit Minutes 15 Notes present for CG training. Number of AMUSEMENT RIDE OPERATOR Visits 3 Physical Therapy Visit Comments Patient Comments Pt willing to work with therapy and trial stairs M4 PT-IP Mobility and Gait Start: 04/23/20 08:43 Freq: NEEDED Status: Discharge Protocol: Document 04/26/20 09:58 CLB (Rec: 04/26/20 13:30 CLB [id number]) PT-Transfer Assessment Sit to and From Stand Sit to and from Stand Standby Assistance,Use of Upper Extremities Equipment Transfer Assistive Device Gait Belt,4 Wheeled Walker Orthotic/Prosthetic Devices or Brace: No Transfers Transfer Destination Chair Transfer Technique walked with 4WW Transfer Ability Level of Assist Standby Assistance Comments Mobility Comments Pt able to mobilize with SBA walking in cotter to therapy stairs. Pt climbed stairs CGA with assist of SOFTWARE CLERK provided by . Pt returned to room sitting in chair with all needs within reach. Gait Assessment Gait Gait Assistance Required: Standby Assistance Distance (Feet) 225 Assistive Devices Assistive Device Gait Belt,4 Wheeled Walker Orthotic/Prosthetic Devices or Brace: No Gait Deviations General Gait Pattern Decreased Feet Clearance Factors Limiting Gait Function Factors Limiting Gait Function Decreased Activity Tolerance, Decreased Sensation,Decreased Strength,Poor Balance,Poor Safety Awareness Comments Gait Comments Pt able to ambulate with pt providing SBA in cotter ~ 225ft. Stair Climbing Assessment Evaluation Level of Assist On Stairs Contact Guard Assistance Technique/Endurance Stair Climbing Direction Ascend and Descend Stair Climbing Technique Step Over Step Number of Steps Climbed 1 Stair Climbing Set # Repetitions (reps) 1 Comments Stair Climbing Comments Pt used SOFTWARE CLERK provided by on/off platform step. PT-Balance Assessment Sitting Balance and Reactions Static Sitting Balance Ability Normal Dynamic Sitting Balance Ability Good M5 PT-IP Objective Assessments Start: 04/23/20 08:43 Freq: NEEDED Status: Discharge Protocol: Document 04/23/20 12:08 AW (Rec: 04/23/20 12:38 AW [id number]) Orientation Orientation/Cognition Level of Alertness Alert Orientation Name,Day of Week,Place, Situation Language Function Ability No Deficits Noted Safety Awareness Decreased Safety Awareness Memory Description No Deficits Noted Gross Range of Motion Lower Extremity ROM Assessment Within Functional Limits Strength Lower Extremity Strength Assessment Within Functional Limits Comments Strength Comments BLE grossly 5/5 on MMT but weak quads observed during gait. Coordination Assessment Gross Coordination Gross Coordination WNL Sensation Assessment Sensation Gross Sensation Right LE Impaired,Left LE Impaired Light Touch Impaired Comments Sensation Comments Pt endorses fuzzy feeling in bilateral plantar feet which is consistent with his baseline. Dorsal surfaces are not affected. Muscle Tone Muscle Tone WNL Yes M6 PT-IP Treatment Start: 04/23/20 08:43 Freq: NEEDED Status: Discharge Protocol: Document 04/23/20 12:08 AW (Rec: 04/23/20 12:38 AW [id number]) Physical Therapy Treatment Education Education Provided Safety Other Treatments Other Treatment Performed Provided education on role of PT, plan of care, and rationale for use of an assistive device. M7 PT-IP Assessment and Plan Start: 04/23/20 08:43 Freq: NEEDED Status: Discharge Protocol: Document 04/26/20 09:58 CLB (Rec: 04/26/20 13:30 CLB [id number]) PT Summary Assessment and Plan Potential Rehabilitation Potential Good Status of Condition at Evaluation Evolving Summary Impairments Strength,Balance,Sensation, Transfers,Gait,Activity Tolerance Progress Towards Goals Progressing Toward Goals Assessment Summary Pt requiring SBA for all mobility with 4WW and is able to ambulate ~225ft. provided SOFTWARE CLERK for stair climbing and SBA for ambulation. Goals Bed Mobility Goal Independent Transfer Goal Independent Gait Goal Independent Gait Distance 400 Other Goals - up/down 1 step with unilateral rail IND Days to Meet Goals 3 Frequency of Treatment Frequency Of Treatment Once a Day Treatment Plan Physical Therapy Treatment Plan Bed Mobility Training,Transfer Training,Gait Training, Therapeutic Exercise,Balance Retraining,Discharge Planning, Neuromuscular Re-ed, Coordination Retraining Recommendations To Nursing Amount of Assist Needed Standby Assistance,1 Person Assist Discharge Recommendations PT Discharge Recommendations Home with Assistance, Outpatient PT Transportation Needs at Discharge Private Vehicle
--- NOTE | 2020-04-26 10:19 | CM.DPC ---
DCP/continued: Received verbal referral from Dr. Handy to f/u with patient/spouse about d/c plan today. Met with patient and spouse. Both aware and agreeable to d/c home today. Initially, it was thought that patient might benefit from HH. However, after further discussion with patient and spouse they do not feel that it is needed. Patient will be borrowing a walker and plans to do outpatient therapy. P: Home today. JAZMIN signed. DEBBI Chacon
--- NOTE | 2020-04-26 10:43 | PC.NURSE ---
Patient educated about the use of catheter leg bag, and larger bag. Patient educated about catheter care and cleaning. Patient educated about sepsis and signs and symptoms of infection. Patient educated about activity, s/s of stroke, fall prevention, and new medications. Patient prescriptions sent electronically to pharmacy. Patient left facility with all belongings via wheelchair to private vehicle.
== END 2020-04-26 11:07 | disposition home or self-care (01) | DRG 559 ==
LOC: ED 13:24 → AC 13:25
PROVIDERS: Admitting Provider Student in an Organized Health Care Education/Training Program; Emergency Provider Emergency Medicine; PCP Family Medicine; Referring Provider Emergency Medicine; Visit Provider Student in an Organized Health Care Education/Training Program
DX: T84.59XA Infection and inflammatory reaction due to other internal joint prosthesis, initial encounter (principal); A41.02 Sepsis due to Methicillin resistant Staphylococcus aureus; I50.21 Acute systolic (congestive) heart failure; R65.20 Severe sepsis without septic shock; N39.0 Urinary tract infection, site not specified; I48.20 Chronic atrial fibrillation, unspecified; I24.8 Other forms of acute ischemic heart disease; N17.9 Acute kidney failure, unspecified; N13.8 Other obstructive and reflux uropathy; I11.0 Hypertensive heart disease with heart failure; N40.1 Benign prostatic hyperplasia with lower urinary tract symptoms; R31.0 Gross hematuria; E78.5 Hyperlipidemia, unspecified; R00.1 Bradycardia, unspecified; I44.7 Left bundle-branch block, unspecified; Z95.0 Presence of cardiac pacemaker; Z91.81 History of falling; Z87.891 Personal history of nicotine dependence; Z20.822 Contact with and (suspected) exposure to COVID-19
CPT/HCPCS: 36415; 51701; 70450; 71045; 80048; 80053; 80202; 81001; 81003; 82550; 82746; 83605; 83690; 83880; 84145; 84443; 84484; 85025; 85610; 85730; 87040; 87077; 87086; 87150; 87186; 87205; 87635; 93005; 93306; 94762; 96361; 96365; 96366; 96367; 97116; 97161; 97165; 97530; 97535; 99284; 99406; C9113; J2543; J3370

== ENCOUNTER → 2020-04-28 14:38 | Outpatient (CLI) | payer MEDICARE, OTHER, SELFPAY ==
[2020-04-22 14:09] VITALS: BMI 25.0
[2020-04-28 15:47] LABS: Add Manual Diff / Slide Review NO; Basophils Absolute Auto 100 /uL (0-100); Basophils Percent Auto 0.8 % (0-2); Eosinophils Absolute Auto 200 /uL (0-450); Eosinophils Percent Auto 2.3 % (2-4); Hematocrit 47.1 % (41-53); Hemoglobin 15.8 g/dL (13.5-17.5); Lymphocytes Absolute Auto 1500 /uL (1100-4500); Lymphocytes Percent Auto 19.1 % (25-40); Mean Corpuscular HGB Conc 33.6 % (30-36); Mean Corpuscular Hemoglobin 33.2 PG (26-34); Mean Corpuscular Volume 99.1 fL (80-100); Monocytes Absolute Auto 900 /uL (0-900); Monocytes Percent Auto 11.4 % (3-14); Neutrophils Absolute Auto 5300 /uL (1500-7000); Neutrophils Percent Auto 66.4 % (50-75); Platelet Count 310 X10^3/uL (150-400); Red Blood Cell Count 4.76 X10^6/uL (4.5-5.9); Red Cell Distribution Width 14.6 % (11.6-14.8)
== END ==
PROVIDERS: PCP Family Medicine; Referring Provider Family Medicine; Visit Provider Family Medicine
DX: A41.89 Other specified sepsis (principal)
CPT/HCPCS: 36415; 85025

== ENCOUNTER → 2020-05-06 10:23 | Outpatient (CLI) | payer MEDICARE, OTHER, SELFPAY ==
[2020-04-22 14:09] VITALS: BMI 25.0
[2020-05-06 11:52] LABS: NT-proBNP (BNP-Adult 18+) 2770 pg/mL (<450)
== END ==
PROVIDERS: PCP Family Medicine; Referring Provider Nurse Practitioner; Visit Provider Nurse Practitioner
DX: I48.0 Paroxysmal atrial fibrillation (principal); R06.00 Dyspnea, unspecified; I10 Essential (primary) hypertension; R53.83 Other fatigue; I50.20 Unspecified systolic (congestive) heart failure
CPT/HCPCS: 36415; 83880

== ENCOUNTER → 2020-05-20 11:45 | Outpatient (CLI) | payer MEDICARE, OTHER, SELFPAY ==
[2020-04-22 14:09] VITALS: BMI 25.0
--- NOTE | 2020-05-20 | DI.RAD.S_ITS ---
PROCEDURE: XR LUMBAR SPINE 2-3V INDICATIONS: Low back pain. TECHNIQUE: 3 views of the lumbar spine were acquired. COMPARISON: [facility], CR, XR LUMBAR SPINE 2-3V, 12/26/2018, 16:00. FINDINGS: Bones: Lateral curvature of the visualized spine. No fracture. Multilevel degenerative endplate sclerosis and spurring. Diffuse facet arthropathy. Diffuse mild narrowing of the lumbar disc spaces. Soft tissues: Overlying bowel gas pattern is normal. No suspicious soft tissue calcifications. Scattered vascular calcifications seen in the aorta. IMPRESSION: Lumbar spondylosis and diffuse facet arthropathy, grossly unchanged since 12/26/18 Dictated by: Kale Lira M.D. on 05/20/2020 at 13:22 Approved by: Kale Lira M.D. on 05/20/2020 at 13:24
== END ==
PROVIDERS: PCP Family Medicine; Referring Provider Family Medicine; Visit Provider Family Medicine
DX: M54.5 Low back pain (principal); M47.816 Spondylosis without myelopathy or radiculopathy, lumbar region
CPT/HCPCS: 72100

== ENCOUNTER 2020-05-25 08:36 | Emergency (ER) | payer MEDICARE, OTHER, SELFPAY ==
[2020-04-22 14:09] VITALS: BMI 25.0
[2020-05-25 08:51] VITALS: BP 146/65; PULSE 75; RESP 16; TEMP 36.9; O2SAT 99; BMI 23.7
--- NOTE | 2020-05-25 08:58 | ED.BACK ---
HPI - Back Pain/Injury General Chief Complaint: Back Pain/Injury Stated Complaint: low back pain 1 week/blood in catheter Time Seen by Provider: 05/25/20 08:50 Source: patient Mode of arrival: Ambulatory Limitations: no limitations History of Present Illness HPI Narrative: Patient is an 85-year-old male who for the past week has had lower back pain. He does not know of a specific incident that caused it to hurt. He does have an indwelling King catheter after having sepsis from MRSA much likely from a urinary tract infection at the end of last year. He has not had the King catheter removed since then. Has not fallen. Saw his primary doctor last week and had x-rays taken. He has not seen the results of these x-rays. Was sent home on Toradol and oral Dilaudid. No fevers. He is having normal bowel movements with his normal regiment of laxatives. He states that the Kign catheter is draining without problems. He is here because of the back pain. It is not radiating down either limb. Related Data Home Medications Medication Instructions Recorded Confirmed tamsulosin 0.4 mg capsule 0.4 mg PO DAILY 09/22/18 04/22/20 Previous Rx's Medication Instructions Recorded carvedilol [Coreg] 3.125 mg PO BID #60 tab 04/26/20 carvedilol [Coreg] 3.125 mg PO BID #60 tab 04/26/20 lisinopril 5 mg PO DAILY #30 tab 04/26/20 lisinopril 5 mg PO DAILY #30 tab 04/26/20 sulfamethoxazole-trimethoprim 1 tab PO BID #20 tab 04/26/20 sulfamethoxazole-trimethoprim 1 tab PO BID #20 tab 04/26/20 [Bactrim DS] Allergies Allergy/AdvReac Type Severity Reaction Status Date / Time No Known Drug Allergies Allergy Verified 05/25/20 08:54 Review of Systems Constitutional Constitutional: Denies fever(s) ENT Ears, Nose, Mouth, and Throat: Denies neck pain Cardiovascular Cardiovascular: Denies chest pain and Denies dyspnea Respiratory Respiratory: Denies dyspnea Gastrointestinal Gastrointestinal: Denies abdominal pain, Denies nausea and Denies vomiting Genitourinary Comments: King catheter in place without problems Musculoskeletal Musculoskeletal: Reports back pain and Denies neck pain Integumentary/Breasts Skin/Breast: Denies lesions and Denies rash Neurologic Neurologic: Denies behavioral changes Psychiatric Psychiatric: Denies behavioral changes Hematologic/Lymphatic On Anticoagulants: No Allergic/Immunologic Allergic/Immunologic: Denies urticaria Patient History Medical History Enlarged prostate History of recurrent UTI (urinary tract infection) Hypertension Pacemaker Social History household members: spouse Smoking Status: Former smoker Smoking Status: Former smoker alcohol intake frequency: a few times a week Alcohol type: wine Substance Use Type: does not use Exam Initial Vital Signs Initial Vital Signs: Vital Signs Temperature 98.5 F 05/25/20 08:51 Pulse Rate 75 05/25/20 08:51 Respiratory Rate 16 05/25/20 08:51 Blood Pressure 146/65 H 05/25/20 08:51 Pulse Oximetry 99 05/25/20 08:51 Const General: cooperative and comfortable Limitations: mental status not altered HENMT Head: normal to inspection and normocephalic Resp Effort & Inspection: normal respiratory effort Auscultation: clear to auscultation bilaterally Cardio Rate: regular rate Rhythm: regular rhythm GI Inspection: non-distended Palpation: soft and No tender Back/Spine/Pelvis Thoracic/Lumbar Spine: No thoracic spinal tenderness and No lumbar spinal tenderness Skin Rashes: no rashes Neuro General: patient alert, patient awake and patient oriented x3 Cognition: normal cognition Speech: speech normal Extrem General: capillary refill normal Psych Appearance: grossly normal and well kempt Course Orders Ordered: ED Orders 05/25/20 09:58 Blood Culture Stat 05/25/20 11:00 Urinalysis and Microscopic Stat Urine Culture Stat Discontinued Medications Morphine Sulfate (Morphine 4 Mg/Ml Inj) 4 mg IV NOW ONE Stop: 05/25/20 09:01 Last Admin: 05/25/20 09:17 Dose: 4 mg Documented by: USAMA Vital Signs Vital signs: Vital Signs - 8 hr 05/25/20 11:28 Pulse Rate 70 Pulse Oximetry 94 MDM - Back Pain/Injury Lab Data Attestation: I reviewed the patient's lab results. Result diagrams: 05/25/20 09:06 05/25/20 09:06 Labs: Lab Results 05/25/20 05/25/20 05/25/20 Range/Units 09:06 09:06 11:00 WBC 16.4 H (4.5-11.0) X10^3/uL RBC 5.05 (4.5-5.9) X10^6/uL Hgb 16.3 (13.5-17.5) g/dL Hct 49.5 (41-53) % MCV 98.0 (80-100) fL MCH 32.3 (26-34) PG MCHC 32.9 (30-36) % RDW 14.3 (11.6-14.8) % Plt Count 243 (150-400) X10^3/uL Neut % (Auto) 83.5 H (50-75) % Lymph % (Auto) 4.2 L (25-40) % [place] % (Auto) 11.0 (3-14) % Eos % (Auto) 0.7 L (2-4) % Baso % (Auto) 0.6 (0-2) % Neut # (Auto) 12322 H (7675-1230) /uL Lymph # (Auto) 700 L (5466-6841) /uL [place] # (Auto) 1800 H (0-900) /uL Eos # (Auto) 100 (0-450) /uL Baso # (Auto) 100 (0-100) /uL Sodium 135 L (137-145) mmol/L Potassium 4.5 (3.4-5.1) mmol/L Chloride 101 (98-107) mmol/L Carbon Dioxide 32 (22-32) mmol/L BUN 39 H (9-20) mg/dL Creatinine 0.95 (0.66-1.25) mg/dL Estimated GFR > 60.0 (>60) mL/min BUN/Creatinine Ratio 41.1 H (6-22) Glucose 127 H (80-110) mg/dL Calcium 8.2 L (8.4-10.2) mg/dL Total Bilirubin 0.8 (0.2-1.3) mg/dL AST 23 (17-59) IU/L ALT 29 (<50) IU/L Alkaline Phosphatase 179 H (38-126) U/L Total Protein 6.5 (6.3-8.2) g/dL Albumin 3.2 L (3.5-5.0) g/dL Globulin 3.3 (1.7-4.1) g/dL Albumin/Globulin Ratio 1.0 (1.0-2.8) Lipase 14 L (23-300) U/L Urine Color Brown Urine Appearance Cloudy Urine pH 5.0 (4.5-8.0) Ur Specific [place] 1.020 (1.000-1.035) Urine Protein 1+ H (Negative) Urine Glucose (UA) Negative (Negative) g/dL Urine Ketones Negative (NEGATIVE) Urine Occult Blood 3+ H (Negative) Urine Nitrate Negative (Negative) Urine Bilirubin Negative (NEGATIVE) Urine Urobilinogen 0.2 (0.2) E.U./dL Ur Leukocyte Esterase 2+ H (NEGATIVE) Urine RBC 10-30/hpf H (0-5/HPF) Urine WBC 10-30/hpf H (0-5/HPF) Urine Bacteria None seen (None) Ur Culture Indicated? Specimen cultured Imaging Data AAA US: Radiologist's Impression: [address] [id number] ReportSigned Patient: Josesito Whyte EMR#: [id number]: [id number]:[id number]/Sex: 85 / MDate of Service: 05/25/20Loc: EDAccession Number: [id number] Procedure: US abd aorta aneurysm screen Ordering Provider: Lorenzo Robles D.O. PROCEDURE: US ABD AORTA ANEURYSM SCREEN INDICATIONS: LOW BACK PAIN - EVALUATE FOR ABDOMINAL AORTIC ANEURYSM TECHNIQUE: Real time scanning was performed of the aorta and iliac arteries, with image documentation. COMPARISON: None. FINDINGS: Aorta: Proximal aortic caliber could not be assessed due to bowel gas.. Mid-aorta measures 1.8 cm. Distal aortic diameter is aneurysmal, measuring up to 4.0 cm AP, 4.8 cm transverse and 7.2 cm craniocaudad, with a fusiform morphology. Iliac arteries: Right common iliac artery measures 1.0 cm. Left common iliac artery measures 1.2 cm. IMPRESSION: Aneurysmal dilatation of the distal aorta measuring up to 4.8 cm in maximal axial dimension, transverse, with intraluminal thrombus (patent lumen diameter 3.1 cm). The proximal 3rd of the aorta could not be seen due to bowel gas. Dictated by: Joel Torres M.D. on 05/25/2020 at 9:34 Approved by: Joel Torres M.D. on 05/25/2020 at 9:41 MDM Narrative Medical decision making narrative: Patient reported complete resolution of symptoms after the IV morphine. His ultrasound today does show a AAA however it is of the mild/moderate size and I have low suspicion that this is the cause of his discomfort as his pain is in his lower back. I did discuss this finding with both the patient and his primary care provider who will follow up. Patient does have an indwelling King catheter. He does have white blood cells but no bacteria. A culture was ordered. Will hold on antibiotics until this culture results. I did discuss this with his primary providers well. They have a follow-up with her primary provider on Monday of this week. I do suspect that his lower back pain is musculoskeletal after his workup here in the ER. He does have pain medication at home. He has a follow-up his primary. He is given return precautions. Expressed understanding and agreement. Discharge Plan Departure Patient Disposition: Home Clinical Impression: Back pain, AAA (abdominal aortic aneurysm) Instructions: DI for Low Back Pain Activity Restrictions/Additional Instructions: Recommend you continue all of your medications as directed. A urine culture was pending at the time of your discharge. We will call you for any positive results however I recommend that you discuss this with your primary doctor at your appointment on Monday. Return to the emergency department for any new or worsening symptoms. Prescriptions: No Action tamsulosin 0.4 mg capsule 0.4 mg PO DAILY RF: 0 sulfamethoxazole-trimethoprim 800-160 mg Tablet 1 tab PO BID Qty: 20 RF: 0 carvedilol [Coreg] 3.125 mg Tablet 3.125 mg PO BID Qty: 60 RF: 2 lisinopril 5 mg Tablet 5 mg PO DAILY Qty: 30 RF: 2 sulfamethoxazole-trimethoprim [Bactrim DS] 800-160 mg tablet 1 tab PO BID Qty: 20 RF: 0 lisinopril 5 mg tablet 5 mg PO DAILY Qty: 30 RF: 0 carvedilol [Coreg] 3.125 mg tablet 3.125 mg PO BID Qty: 60 RF: 0 Referrals: Fidel Handy MD [Primary Care Provider] -
[2020-05-25 09:16] LABS: Add Manual Diff / Slide Review NO; Basophils Absolute Auto 100 /uL (0-100); Basophils Percent Auto 0.6 % (0-2); Eosinophils Absolute Auto 100 /uL (0-450); Eosinophils Percent Auto 0.7 % (2-4); Hematocrit 49.5 % (41-53); Hemoglobin 16.3 g/dL (13.5-17.5); Lymphocytes Absolute Auto 700 /uL (1100-4500); Lymphocytes Percent Auto 4.2 % (25-40); Mean Corpuscular HGB Conc 32.9 % (30-36); Mean Corpuscular Hemoglobin 32.3 PG (26-34); Monocytes Absolute Auto 1800 /uL (0-900); Neutrophils Absolute Auto 13700 /uL (1500-7000); Neutrophils Percent Auto 83.5 % (50-75); Platelet Count 243 X10^3/uL (150-400); Red Blood Cell Count 5.05 X10^6/uL (4.5-5.9); Red Cell Distribution Width 14.3 % (11.6-14.8); White Blood Cell Count 16.4 X10^3/uL (4.5-11.0)
[2020-05-25] MEDS: MORPHINE 4 MG/ML INJ IV (09:17)
[2020-05-25 09:25] LABS: Alanine Aminotransferase 29 IU/L (<50); Albumin 3.2 g/dL (3.5-5.0); Alkaline Phosphatase 179 U/L (38-126); Aspartate Aminotransferase 23 IU/L (17-59); BUN Creatinine Ratio 41.1 (6-22); Bilirubin Total 0.8 mg/dL (0.2-1.3); Blood Urea Nitrogen 39 mg/dL (9-20); Calcium 8.2 mg/dL (8.4-10.2); Carbon Dioxide 32 mmol/L (22-32); Chloride 101 mmol/L (98-107); Estimated Glomerular Filt Rate > 60.0 mL/min (>60); Globulin 3.3 g/dL (1.7-4.1); Glucose 127 mg/dL (80-110); HEMOLYSIS < 15 (0-50); Lipase 14 U/L (23-300); Potassium 4.5 mmol/L (3.4-5.1); Sodium 135 mmol/L (137-145); Total Protein 6.5 g/dL (6.3-8.2)
[2020-05-25 11:05] LABS: Bacteria Urine None Seen
[2020-05-25 11:06] LABS: Bilirubin Urine UA NEGATIVE (NEGATIVE); Glucose Urine UA NEGATIVE (Negative); Ketones Urine UA NEGATIVE (NEGATIVE); Leukocyte Esterase Urine UA 2+ (NEGATIVE); Nitrite Urine UA NEGATIVE (Negative); Occult Blood Urine UA 3+ (Negative); Protein Urine UA 1+ (Negative); Urobilinogen Urine UA 0.2 E.U./dL (0.2)
[2020-05-25 11:13] LABS: RBC Urine 10-30/HPF (0-5/HPF)
[2020-05-25 11:14] LABS: Appearance Urine UA CLOUDY; Color Urine UA BROWN; Culture Indicated Urine Specimen Cultured; WBC Urine 10-30/HPF (0-5/HPF)
[2020-05-25 11:28] VITALS: PULSE 70; O2SAT 94
[2020-05-26 06:46] LABS: Enterococcus species Not Detected (Not Detect); Listeria monocytogenes Not Detected (Not Detect); Staphylococcus species Detected (Not Detect)
[2020-05-26 06:47] LABS: Acinetobacter baumannii Not Detected (Not Detect); Enterobacteriaceae species Not Detected (Not Detect); Methicillin-resistant gene Detected (Not Detect); Streptococcus agalactiae (Gr B Not Detected (Not Detect); Streptococcus pneumonia Not Detected (Not Detect); Streptococcus pyogenes (Gr A) Not Detected (Not Detect); Streptococcus species Not Detected (Not Detect)
[2020-05-26 06:48] LABS: Candida albicans Not Detected (Not Detect); Candida glabrata Not Detected (Not Detect); Candida krusei Not Detected (Not Detect); Candida parapsilosis Not Detected (Not Detect); Candida tropicalis Not Detected (Not Detect); E. coli Not Detected (Not Detect); Enterobacter cloacae complex Not Detected (Not Detect); Haemophilus influenzae Not Detected (Not Detect); Neisseria meningitidis Not Detected (Not Detect); Proteus species Not Detected (Not Detect); Pseudomonas aeruginosa Not Detected (Not Detect); Serratia marcescens Not Detected (Not Detect)
== END 2020-05-25 11:41 | disposition home or self-care (01) ==
PROVIDERS: Emergency Provider Emergency Medicine; PCP Family Medicine
DX: I71.4 Abdominal aortic aneurysm, without rupture (principal); M54.5 Low back pain; I10 Essential (primary) hypertension; Z95.0 Presence of cardiac pacemaker
CPT/HCPCS: 36415; 51705; 76706; 80053; 81001; 83690; 85025; 87040; 87077; 87086; 87147; 87150; 87186; 87205; 96374; 99283; 99284; J2270

== ENCOUNTER → 2020-05-27 16:40 | Outpatient (CLI) | payer MEDICARE, OTHER, SELFPAY ==
[2020-04-22 14:09] VITALS: BMI 25.0
[2020-05-27 18:24] LABS: Add Manual Diff / Slide Review NO; Basophils Absolute Auto 0 /uL (0-100); Basophils Percent Auto 0.1 % (0-2); Eosinophils Absolute Auto 100 /uL (0-450); Eosinophils Percent Auto 0.7 % (2-4); Hematocrit 48.6 % (41-53); Hemoglobin 16.2 g/dL (13.5-17.5); Lymphocytes Absolute Auto 700 /uL (1100-4500); Mean Corpuscular HGB Conc 33.3 % (30-36); Mean Corpuscular Hemoglobin 32.8 PG (26-34); Mean Corpuscular Volume 98.6 fL (80-100); Monocytes Absolute Auto 1300 /uL (0-900); Monocytes Percent Auto 7.5 % (3-14); Neutrophils Absolute Auto 14900 /uL (1500-7000); Neutrophils Percent Auto 87.7 % (50-75); Platelet Count 308 X10^3/uL (150-400); Red Blood Cell Count 4.93 X10^6/uL (4.5-5.9); Red Cell Distribution Width 14.5 % (11.6-14.8)
[2020-05-27 18:43] LABS: Alanine Aminotransferase 34 IU/L (<50); Albumin Globulin Ratio 0.9 (1.0-2.8); Alkaline Phosphatase 234 U/L (38-126); Aspartate Aminotransferase 24 IU/L (17-59); BUN Creatinine Ratio 30.9 (6-22); Bilirubin Total 0.9 mg/dL (0.2-1.3); Blood Urea Nitrogen 29 mg/dL (9-20); Calcium 8.6 mg/dL (8.4-10.2); Carbon Dioxide 31 mmol/L (22-32); Chloride 97 mmol/L (98-107); Estimated Glomerular Filt Rate > 60.0 mL/min (>60); Globulin 3.2 g/dL (1.7-4.1); Glucose 126 mg/dL (80-110); HEMOLYSIS < 15 (0-50); Potassium 4.9 mmol/L (3.4-5.1); Sodium 134 mmol/L (137-145); Total Protein 6.2 g/dL (6.3-8.2)
[2020-05-27 18:57] LABS: C-Reactive Protein Quant 20.9 mg/dL (<1.0)
[2020-05-27 19:09] LABS: Erythrocyte Sedimentation Rate 10 MM/HR (0-15)
[2020-06-01 15:27] LABS: Immunoglobulin A, Serum 173 mg/dL (61-437); Immunoglobulin G,Serum 1340 mg/dL (603-1613); Immunoglobulin M, Serum 69 mg/dL (15-143)
[2020-06-01 16:27] LABS: Albumin 2.6 g/dL (2.9-4.4); Alpha-1-Globulin 0.4 g/dL (0.0-0.4); Alpha-2-Globulin 1.1 g/dL (0.4-1.0); Gamma Globulin 1.4 g/dL (0.4-1.8); Globulin Total 3.8 g/dL (2.2-3.9); Protein, Total 6.4 g/dL (6.0-8.5)
== END ==
PROVIDERS: PCP Family Medicine; Referring Provider Family Medicine; Visit Provider Family Medicine
DX: A41.89 Other specified sepsis (principal); Z85.79 Personal history of other malignant neoplasms of lymphoid, hematopoietic and related tissues
CPT/HCPCS: 36415; 80053; 82784; 84155; 84165; 85025; 85651; 86140; 86334

== ENCOUNTER → 2020-05-28 11:33 | Outpatient (CLI) | payer MEDICARE, OTHER, SELFPAY ==
[2020-04-22 14:09] VITALS: BMI 25.0
--- NOTE | 2020-05-28 11:36 | DI.CT.S_ITS ---
PROCEDURE: CT LUMBAR SPINE WO CON INDICATIONS: Low back pain TECHNIQUE: Noncontrast 3 mm thick sections acquired from the T12 level to the sacrum. Sagittal and coronal reformats were constructed. For radiation dose reduction, the following was used: automated exposure control. COMPARISON: [facility], CR, XR LUMBAR SPINE 2-3V, 05/20/2020, 12:00. FINDINGS: Image quality: Excellent. Bones: There is normal bony alignment. Cortical defects noted in the anterior-superior corner of the L3 vertebral body which may represent early subacute compression fracture or osseous erosion adjacent to the aided with neoplastic process. No pars defects. L1-L2: Disc height is normal. Mild, diffuse disc bulge. Mild bilateral facet hypertrophy. Mild narrowing of the central canal. Mild bilateral neural foraminal narrowing. No neural compression. L2-L3: Slight loss of disc height. Vacuum disc phenomenon. Mild, diffuse disc bulge. Left foraminal disc protrusion. Mild bilateral facet hypertrophy. Mild narrowing of the central canal. Mild right and moderate left neural foraminal narrowing. No neural compression. L3-L4: Disc height is normal. Mild, diffuse disc bulge. Mild bilateral facet hypertrophy. Mild ligamentum flavum hypertrophy. Mild to moderate narrowing of the central canal. Mild bilateral neural foraminal narrowing. No neural compression. L4-L5: Disc height is normal. Mild, diffuse disc bulge. Moderate bilateral facet hypertrophy. Mild ligamentum flavum hypertrophy. Moderate narrowing of the central canal. Moderate bilateral neural foraminal narrowing. No neural compression. L5-S1: Disc height is normal. Mild, diffuse disc bulge. Severe bilateral facet hypertrophy. Mild narrowing of the central canal. Mild bilateral neural foraminal narrowing. No neural compression. Soft tissues: No retroperitoneal masses or hematomas. 4.7 x 5.4 centimeter infrarenal abdominal aortic aneurysm. Scattered atherosclerotic calcifications involving the abdominal and pelvic vasculature. Numerous diverticuli noted in the visualized colon without evidence of diverticulitis. 6 millimeter nonobstructing right renal stone. IMPRESSION: 1. Cortical defects involving the anterior-superior corner of the L3 vertebral body which may represent early subacute corner compression fracture versus neoplastic process with osseous erosion. Recommend MRI of the lumbar spine within with out contrast for further evaluation. 2. Multilevel degenerative disc disease. 3. Multilevel facet arthropathy. 4. No neural compression. 5. 4.7 x 5.4 centimeter abdominal aortic aneurysm. Dictated by: Mishel Villalobos MD, PhD on 05/28/2020 at 14:15 Approved by: Mishel Villalobos MD, PhD on 05/28/2020 at 14:26
== END ==
PROVIDERS: PCP Family Medicine; Referring Provider Family Medicine; Visit Provider Family Medicine
DX: M54.5 Low back pain (principal); I71.4 Abdominal aortic aneurysm, without rupture; M51.36 Other intervertebral disc degeneration, lumbar region; M51.37 Other intervertebral disc degeneration, lumbosacral region; M47.816 Spondylosis without myelopathy or radiculopathy, lumbar region; M47.817 Spondylosis without myelopathy or radiculopathy, lumbosacral region
CPT/HCPCS: 72131

== ENCOUNTER 2020-05-28 16:31 | Inpatient (IN) | payer MEDICARE, OTHER, SELFPAY ==
[2020-04-22 14:09] VITALS: BMI 25.0
[2020-05-28 17:00] VITALS: BP 131/63; PULSE 70; RESP 20; TEMP 36.3; O2SAT 97
[2020-05-28 17:19] VITALS: BMI 23.8
--- NOTE | 2020-05-28 17:32 | PC.ADMIT ---
[email or web address] Kateryna Ross Admission Note: The patient,Josesito Whyte,85 y/o, was given written information regarding hospital policies, unit procedures and contact persons. Patient's smoking status: Former smoker. Patient up from office and direct admit. brought patient up in wheelchair. Patient was able to get out of the wheelchair and was one person minimal assist with fww to AC bed, gait was steady. Patient has been A&O, calm and mostly cooperative (pt didn't want his socks changed to hospital socks at this time). States pain is tolerable at this time while he is resting in bed. Ashlee is taking patients wallet and necklace home. Patient came in with dalton catheter which was connected to a leg bag. Changed leg bag out with larger bag. Awaiting for Dr. Mondragon arrival for additional orders. IV to be started per hospital protocol.
[2020-05-28] MEDS: SODIUM CHLORIDE 0.9% 1,000 ML 100 ML IV (18:07)
[2020-05-28] MEDS: IBUPROFEN 600 MG TABLET PO (18:08)
[2020-05-28 18:16] LABS: COVID19 -Nasal RAPID Negative (Negative)
[2020-05-28] MEDS: MORPHINE 2 MG/ML INJ IV (18:30)
[2020-05-28 18:52] LABS: Add Manual Diff / Slide Review NO; Basophils Absolute Auto 0 /uL (0-100); Basophils Percent Auto 0.2 % (0-2); Eosinophils Absolute Auto 100 /uL (0-450); Eosinophils Percent Auto 0.4 % (2-4); Hematocrit 49.8 % (41-53); Hemoglobin 16.5 g/dL (13.5-17.5); Lymphocytes Absolute Auto 600 /uL (1100-4500); Lymphocytes Percent Auto 3.7 % (25-40); Mean Corpuscular HGB Conc 33.2 % (30-36); Mean Corpuscular Hemoglobin 32.8 PG (26-34); Mean Corpuscular Volume 98.6 fL (80-100); Monocytes Absolute Auto 1100 /uL (0-900); Monocytes Percent Auto 6.9 % (3-14); Neutrophils Absolute Auto 14800 /uL (1500-7000); Neutrophils Percent Auto 88.8 % (50-75); Platelet Count 257 X10^3/uL (150-400); Red Blood Cell Count 5.05 X10^6/uL (4.5-5.9); Red Cell Distribution Width 14.6 % (11.6-14.8); White Blood Cell Count 16.7 X10^3/uL (4.5-11.0)
[2020-05-28 19:12] LABS: Alanine Aminotransferase 32 IU/L (<50); Albumin Globulin Ratio 0.9 (1.0-2.8); Alkaline Phosphatase 231 U/L (38-126); Aspartate Aminotransferase 33 IU/L (17-59); BUN Creatinine Ratio 30.2 (6-22); Bilirubin Total 0.9 mg/dL (0.2-1.3); Blood Urea Nitrogen 29 mg/dL (9-20); Calcium 8.1 mg/dL (8.4-10.2); Carbon Dioxide 32 mmol/L (22-32); Chloride 100 mmol/L (98-107); Estimated Glomerular Filt Rate > 60.0 mL/min (>60); Globulin 3.3 g/dL (1.7-4.1); Glucose 105 mg/dL (80-110); Sodium 134 mmol/L (137-145); Total Protein 6.3 g/dL (6.3-8.2)
[2020-05-28 19:23] LABS: HEMOLYSIS 56 (0-50)
[2020-05-28 19:24] LABS: Potassium 4.7 mmol/L (3.4-5.1)
--- NOTE | 2020-05-28 19:27 | P.HP_ITS ---
History of Present Illness History of Present Illness Date Patient Seen: 05/28/20 Time Patient Seen: 19:27 Date of Onset of Symptoms: 05/14/20 Chief complaint: Discitis/UTI Narrative: Patient is an 85-year-old white male well known to me with recent admission for MRSA sepsis who presents with acute onset back pain. Patient had been discharged from the hospital was doing well. His white count normalized and he is feeling well. Approximately 2 weeks ago he began having acute low back pain. Did not think he did anything. Had fallen. Had no other changes. He had otherwise felt like the pain was all low back maybe slightly left of i leum area. He had no radiation although sometimes he felt like it went to his buttock and sometimes up to his shoulder. He had no fevers chills or other change. Patient was seen in my clinic and was given Toradol and pain medicine. She x-ray was taken which did not show anything. He was seen in the emergency room and had evaluation with blood cultures and urine culture. Urine grew MRSA. Was recently found. He also had a positive blood culture in the emergency room. Patient was seen had a elevated CRP of 20 normal sed rate white count of 17. CT scan showed L3 changes possible compression fracture possible metastatic disease. Otherwise patient has been not eating well. Has not been drinking a lot. Has been taking Dilaudid pretty frequently for pain. Pain is fine when he is lying but worse when he gets up and moves around. No other changes. Patient has history of congestive heart failure. Recently diagnosed with last admission. Ejection fraction was 25%. Has seen plan nurse. He has was started during his hospitalization on beta-luis and lisinopril. Had been feeling well without any shortness of breath or chest pain. Title Examiner feels as if this might be secondary to his infection and will going to give it 3 months on treatment to see if his ejection fraction improves. 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 . Eleventh grade education Patient History Medical History Enlarged prostate History of recurrent UTI (urinary tract infection) Hypertension Pacemaker Family & Social History Social History: household members spouse Prior Living Arrangements House Safety & Behavioral: Feels Safe in Current Yes Environment Been Physically Hurt or No Threatened By a Person Suicidal Ideation Description None Suicide Plan Description No Plan Tobacco & Substance use: Smoking Status Former smoker alcohol intake current alcohol intake frequency a few times a month Substance Use Type does not use Meds Home Medications and Allergies Home Medications Medication Instructions Recorded Confirmed Type tamsulosin 0.4 mg capsule 0.4 mg PO DAILY 09/22/18 05/28/20 History carvedilol [Coreg] 3.125 mg PO BID #60 tab 04/26/20 05/28/20 Rx lisinopril 5 mg PO DAILY #30 tab 04/26/20 05/28/20 Rx sulfamethoxazole-trimethoprim 1 tab PO BID #20 tab 04/26/20 05/28/20 Rx Allergies Allergy/AdvReac Type Severity Reaction Status Date / Time No Known Drug Allergies Allergy Verified 05/25/20 08:54 Review of Systems Review of Systems ROS: Yes All systems reviewed with the patient and are negative except as otherwise documented Exam Vital Signs (past 8 hours): - 05/28/20 17:00 Temperature 97.3 F L Pulse Rate 70 Respiratory Rate 20 Blood Pressure 131/63 Pulse Oximetry 97 Oxygen Flow Rate 0 Narrative Exam Narrative: Alert elderly male lying in bed comfortable in no acute distress. Mucous membranes moist. Neck supple without adenopathy. No JVD or bruits. Lungs are clear. Heart regular rate and rhythm without murmurs clicks rubs or gallops. Abdomen is soft positive bowel sounds nontender. His back shows tenderness in the left SI joint but no real other abnormality no swelling no erythema. He has no tenderness in the midline does have some slight tenderness in the trapezius muscle on the left side. Neurologic exam peers to be normal with normal reflexes and motor. His sensation appears to be intact. Generalized weakness but not really definable in any location. Mostly secondary to pain. Skin without rash. Objective Labs Result Diagrams: 05/28/20 17:55 05/28/20 17:55 Labs: Laboratory Results - last 24 hr 05/28/20 05/28/20 05/28/20 16:55 17:55 17:55 WBC 16.7 H RBC 5.05 Hgb 16.5 Hct 49.8 MCV 98.6 MCH 32.8 MCHC 33.2 RDW 14.6 Plt Count 257 Neut % (Auto) 88.8 H Lymph % (Auto) 3.7 L [place] % (Auto) 6.9 Eos % (Auto) 0.4 L Baso % (Auto) 0.2 Neut # (Auto) 92835 H Lymph # (Auto) 600 L [place] # (Auto) 1100 H Eos # (Auto) 100 Baso # (Auto) 0 Sodium 134 L Potassium 4.7 Chloride 100 Carbon Dioxide 32 BUN 29 H Creatinine 0.96 Estimated GFR > 60.0 BUN/Creatinine Ratio 30.2 H Glucose 105 Calcium 8.1 L Total Bilirubin 0.9 AST 33 ALT 32 Alkaline Phosphatase 231 H Total Protein 6.3 Albumin 3.0 L Globulin 3.3 Albumin/Globulin Ratio 0.9 L SARS-CoV-2 (PCR) Negative Assessment & Plan Assessment & Plan narrative: Back pain with abnormal L3 bony lesion which given the fact that he had MRSA sepsis and acute onset back pain and elevation white count certainly concerning for possible infection in the bone. Was going to try to get nucleolar medicine bone scan but apparently we can not do that in the hospital. Will consult tomorrow orthopedist and see what the next step as will treat with Vanco and proceed from there. Urinary tract infection with indwelling King secondary to his BPH. Will continue Vanco should cover. MRSA. Had been on Bactrim. Positive blood culture will repeat blood cultures prior to antibiotics and see what those develop. Certainly could be positive secondary to his bony lesions. Should be covered at this time. Will follow white count. Congestive heart failure. Significant. Will continue his usual medicines no evidence of significant pathology on this time. Certainly I believe he is he low on fluid but will watch closely re-evaluate output and BNP in the morning. Dehydration. I think it is moderate. But will gentle hydration given his cardiac status. 100 cc an hour through the night and re-evaluate output and exam in a.m.. Hypertension. Stable. Code status fall. DVT prophylaxis will placed on Lovenox. GI prophylaxis on Protonix. Disposition. I suspect this will be of process I do believe this is more likely than not infected will see with orthopedist said. Whether not he has to be just on long-term antibiotics or whether this will require some type of surgical procedure E we will have to see how things go. Quality VTE Deep Vein Thrombosis/Pulmonary Embolism Present on Admission: No
[2020-05-28 20:08] LABS: NT-proBNP (BNP-Adult 18+) 8110 pg/mL (<450)
[2020-05-28] MEDS: VANCOMYCIN 2,000 MG/400 ML PIGGYBACK 200 MG IV (20:26)
[2020-05-28] MEDS: SENNOSIDES 8.6 MG TABLET 17.2 MG PO (20:26)
[2020-05-28] MEDS: carvediloL 3.125 MG TABLET PO (20:26)
[2020-05-28 20:56] VITALS: BP 115/54; PULSE 71; RESP 18; TEMP 36.4
[2020-05-28 23:00] VITALS: O2SAT 97
[2020-05-29] VITALS (10 sets, daily range): BP systolic 122–140; BP diastolic 55–99; PULSE 64–76; RESP 16–20; TEMP 36.4–37; O2SAT 95–99
[2020-05-29] MEDS: IBUPROFEN 600 MG TABLET PO ×4 (00:45→16:56)
[2020-05-29 05:09] LABS: Add Manual Diff / Slide Review NO; Basophils Absolute Auto 100 /uL (0-100); Basophils Percent Auto 0.6 % (0-2); Eosinophils Absolute Auto 100 /uL (0-450); Eosinophils Percent Auto 0.6 % (2-4); Hemoglobin 13.8 g/dL (13.5-17.5); Lymphocytes Absolute Auto 900 /uL (1100-4500); Lymphocytes Percent Auto 5.9 % (25-40); Mean Corpuscular HGB Conc 32.8 % (30-36); Mean Corpuscular Hemoglobin 32.3 PG (26-34); Mean Corpuscular Volume 98.4 fL (80-100); Monocytes Absolute Auto 1100 /uL (0-900); Monocytes Percent Auto 7.2 % (3-14); Neutrophils Absolute Auto 13100 /uL (1500-7000); Neutrophils Percent Auto 85.7 % (50-75); Platelet Count 303 X10^3/uL (150-400); Red Blood Cell Count 4.27 X10^6/uL (4.5-5.9); White Blood Cell Count 15.3 X10^3/uL (4.5-11.0)
[2020-05-29 05:21] LABS: BUN Creatinine Ratio 28.9 (6-22); Blood Urea Nitrogen 28 mg/dL (9-20); Calcium 7.8 mg/dL (8.4-10.2); Carbon Dioxide 27 mmol/L (22-32); Chloride 104 mmol/L (98-107); Estimated Glomerular Filt Rate > 60.0 mL/min (>60); Glucose 93 mg/dL (80-110); HEMOLYSIS < 15 (0-50); Sodium 134 mmol/L (137-145)
[2020-05-29] MEDS: PANTOPRAZOLE 20 MG TABLET PO (05:54)
[2020-05-29] MEDS: SODIUM CHLORIDE 0.9% 1,000 ML 100 ML IV ×2 (05:58→23:31)
--- NOTE | 2020-05-29 07:16 | P.PN_ITS ---
Subjective Subjective Date Patient Seen: 05/29/20 Time Patient Seen: 07:16 Interval history: Uneventful night. Has been afebrile, white count falling. Nursing reports no overnight concerns. Patient has an appetite this morning, no nausea or vomiting. Pain 2/10. Catheter in place; has only put out 150 cc overnight, 450 cc in the bag this morning, dark aquiles. Overall, positive fluid balance. Exam Vital Signs (past 8 hours): - 05/29/20 00:00 05/29/20 04:40 Temperature 97.5 F L 97.6 F Pulse Rate 68 70 Respiratory Rate 16 16 Blood Pressure 128/60 126/64 Pulse Oximetry 95 95 Oxygen Delivery Method Room Air Oxygen Flow Rate 0 Narrative Exam Narrative: GENERAL: Alert and oriented, appearing stated age and in no acute distress, weak. HEENT: Head normocephalic/atraumatic. LUNGS: Clear to ausculation bilaterally, no wheezes, rhonchi or rales. CV: Normal S1 and S2 with regular rate and rhythm, no audible murmurs, rubs or gallops. ABDOMEN: Soft, non-tender, non-distended, no organomegaly. Positive bowel sounds. 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 No increased muscle bulk or tone paraspinous muscles. EXTREMITIES: No clubbing, cyanosis, or edema. NEURO: Cranial nerves II through XII grossly intact, no focal deficits. PSYCH: Alert and oriented x 3. SKIN: No concerning lesions. Objective Labs Result Diagrams: 05/29/20 04:50 05/29/20 04:50 Labs: Laboratory Results - last 24 hr 05/28/20 05/28/20 05/28/20 16:55 17:55 17:55 WBC 16.7 H RBC 5.05 Hgb 16.5 Hct 49.8 MCV 98.6 MCH 32.8 MCHC 33.2 RDW 14.6 Plt Count 257 Neut % (Auto) 88.8 H Lymph % (Auto) 3.7 L [place] % (Auto) 6.9 Eos % (Auto) 0.4 L Baso % (Auto) 0.2 Neut # (Auto) 94945 H Lymph # (Auto) 600 L [place] # (Auto) 1100 H Eos # (Auto) 100 Baso # (Auto) 0 Sodium 134 L Potassium 4.7 Chloride 100 Carbon Dioxide 32 BUN 29 H Creatinine 0.96 Estimated GFR > 60.0 BUN/Creatinine Ratio 30.2 H Glucose 105 Calcium 8.1 L Total Bilirubin 0.9 AST 33 ALT 32 Alkaline Phosphatase 231 H NT-Pro-B Natriuret Pep Total Protein 6.3 Albumin 3.0 L Globulin 3.3 Albumin/Globulin Ratio 0.9 L SARS-CoV-2 (PCR) Negative 05/28/20 05/29/20 05/29/20 17:55 04:50 04:50 WBC 15.3 H RBC 4.27 L Hgb 13.8 Hct 42.0 MCV 98.4 MCH 32.3 MCHC 32.8 RDW 15.0 H Plt Count 303 Neut % (Auto) 85.7 H Lymph % (Auto) 5.9 L [place] % (Auto) 7.2 Eos % (Auto) 0.6 L Baso % (Auto) 0.6 Neut # (Auto) 48798 H Lymph # (Auto) 900 L [place] # (Auto) 1100 H Eos # (Auto) 100 Baso # (Auto) 100 Sodium 134 L Potassium 4.0 Chloride 104 Carbon Dioxide 27 BUN 28 H Creatinine 0.97 Estimated GFR > 60.0 BUN/Creatinine Ratio 28.9 H Glucose 93 Calcium 7.8 L Total Bilirubin AST ALT Alkaline Phosphatase NT-Pro-B Natriuret Pep 8110 H Total Protein Albumin Globulin Albumin/Globulin Ratio SARS-CoV-2 (PCR) [facility] Medical History Enlarged prostate History of recurrent UTI (urinary tract infection) Hypertension Pacemaker Social History household members: spouse Smoking Status: Former smoker alcohol intake: current Assessment & Plan Assessment & Plan narrative: 85 yo M with back pain; abnormal L3 bony lesion, history of MRSA, risk for bone infection. HD#1 1. Acute onset back pain in setting of recent MRSA and new CT finding of abnormal L3 bony lesion, concern for infection vs. malignancy vs. other. MRI not possible due to pacemaker. Plan: Continue vanco and trend labs. Ortho consult today, call out to Dr. Mccurdy, awaiting her response. 2. Urinary tract infection with indwelling King secondary to his BPH. Plan: Will continue Vanco for MRSA coverage. 3. Positive blood culture, recent Plan: Blood cultures taken prior to antibiotics, pending. Will trend labs and clinical status. 4. Congestive heart failure, with reduced ejection fraction, chronic, significant. -Echo on 04/23/20 showed EF of 20-25% -No clinical signs of fluid overload, lung bases clear, ankles without edema. Plan: Will continue his usual medicines as no evidence of significant pathology on this time. BNP pending this am, will adjust fluids vs. diuresis based on results. 5. Dehydration. -Currently in +550 cc fluid balance overnight. Plan: Continue gentle hydration at 100 cc/hour given cardiac status, may need to slow this down based on today's BNP. At the moment, urine is still concentrated. Will get a bladder scan this morning. 6. Hypertension, chronic, stable. Plan: Continue home treatment plan. Code: Full DVT prophylaxis: Lovenox. GI prophylaxis: Protonix. Quality VTE Deep Vein Thrombosis/Pulmonary Embolism Present on Admission: No
[2020-05-29 07:54] LABS: NT-proBNP (BNP-Adult 18+) 6520 pg/mL (<450)
[2020-05-29] MEDS: VANCOMYCIN 1,250 MG/250 ML PIGGYBACK 150 MG IV ×2 (08:17→19:33)
[2020-05-29] MEDS: carvediloL 3.125 MG TABLET PO ×2 (08:26→20:17)
[2020-05-29] MEDS: TAMSULOSIN 0.4 MG CAPSULE PO (08:26)
[2020-05-29] MEDS: LIDOCAINE PATCH 1 EACH ADH..PATCH TOP (08:27)
[2020-05-29] MEDS: lisinopriL 5 MG TABLET PO (10:19)
--- NOTE | 2020-05-29 11:53 | CM.DANOTE ---
Addendum entered by Geetha Humphrey LPN 05/29/20 16:11: Gio Fonseca stated he just met with pt and his Ashlee. They have now been told by Dr. Mccurdy that pt will likely need 6 weeks of IV antibiotics and Ashlee cannot conceive of a way that she can handle this herself and home. He will let her know that this d/c cyber ops planner will see them in the morning to discuss options for this care. Have also obtained an OT order to help in the dc planning assessment process. pt has Medicare and [place]. If [place] if a Medicare supplement he does not have insurance coverage for the IV treatment to be done in the home setting. Addendum entered by Geetha Humphrey LPN 05/29/20 13:55: Per BLACK Dooley: admission status: confirmed INPT: 05/28 and >. Original Note: Discharge Planning/Care Management DCP: assessment: case received, EMR reviewed and met now with pt and his Ashlee. Introduced self and role. Pt is an 85 year old male who admitted directly from PCP Dr. Handy's clinic yesterday late afternoon. He has been at home recovering from MRSA UTI infection and has had an indwelling dalton catheter in place since his last admission to in April. (prior to that he had been doing self catheterization) Pt now with acute lower back/radiating pain. Per documentation, CT shows abnormal L3 bony lesion. Orthopedic consultation has been ordered (Dr. Handy states MRI and bone scan are not doable/see his H&P for details.) Assured both that dcplanning team would be following as POC unfolds to assist with d/c issues and options. Note that pt and did not think HH would be helpful at last d/c...would think that at very least it would be a good idea to revisit this. Payer: Medicare and for Life Admission status: in review: per BLACK Dooley. Advanced directive, confirm from FAMILY Start: 05/28/20 17:30 Freq: Q24H Status: Active Protocol: Document 05/28/20 17:30 AGW (Rec: 05/28/20 22:11 AGW [id number]) Advance Directive, confirm on record Time 20:00 Person contacted patient Copy received No CM Discharge Assessment Start: 05/29/20 11:51 Freq: Status: Active Protocol: Document 05/29/20 11:51 ITV (Rec: 05/29/20 11:53 ITV [id number]) Discharge Planning Assessment Advance Directives? Yes History Provided By Patient,Significant Other Has Patient been admitted in last 30 No days? Comment last admission: 04/22-04/26/20 for MRSA UTI. Pt has been home with indwelling dalton catheter and 's support ever since. Prior Living Arrangements House Household Members spouse Is patient alert and oriented? Yes Review Status In Process
--- NOTE | 2020-05-29 13:04 | P.HP_ITS ---
History of Present Illness History of Present Illness Date Patient Seen: 05/29/20 Time Patient Seen: 13:04 Chief complaint: Discitis/UTI Narrative: This is a complex 85-year-old gentleman who is referred for back pain. He has a history of a recent admission for urosepsis with a Staph aureus bacteremia and positive blood cultures. He was treated initially with IV vancomycin and did seem to respond to that reasonably well. He has chronic problems with urinary retention and was sent home on a self catheterization program. He then had continued problems cathing himself and has been carefully followed by his primary care practitioner but did develop an increasing white count and recurrent fevers and was readmitted. He previously had urological surgery scheduled which was due to be done in April but was postponed because of his admission with urosepsis. He had an abnormal echocardiogram during that admission when he was septic. He notes that he has had some increased low back pain recently. He has recently been worked up with a CT scan which showed some abnormality at the L2-3 disc level. He does not note significant pain radiating into either lower extremities. He has some component of chronic sciatica but is not been flared up substantially recently. Patient History Medical History Enlarged prostate History of recurrent UTI (urinary tract infection) Hypertension Pacemaker Family & Social History Social History: household members spouse Prior Living Arrangements House Safety & Behavioral: Feels Safe in Current Yes Environment Been Physically Hurt or No Threatened By a Person Suicidal Ideation Description None Suicide Plan Description No Plan Tobacco & Substance use: Smoking Status Former smoker alcohol intake current alcohol intake frequency a few times a month Substance Use Type does not use Meds Home Medications and Allergies Home Medications Medication Instructions Recorded Confirmed Type tamsulosin 0.4 mg capsule 0.4 mg PO DAILY 09/22/18 05/28/20 History carvedilol [Coreg] 3.125 mg PO BID #60 tab 04/26/20 05/28/20 Rx lisinopril 5 mg PO DAILY #30 tab 04/26/20 05/28/20 Rx sulfamethoxazole-trimethoprim 1 tab PO BID #20 tab 04/26/20 05/28/20 Rx Allergies Allergy/AdvReac Type Severity Reaction Status Date / Time No Known Drug Allergies Allergy Verified 05/25/20 08:54 Review of Systems Review of Systems Narrative: Has chronic problems voiding which has been worse recently. Did note some fevers and chills at home, his notes that on his 1st episode of urosepsis he was having problem with hallucinations at home. He is hard of hearing which is significant problem but unchanged recently Exam Vital Signs (past 8 hours): - 05/29/20 07:00 05/29/20 08:00 05/29/20 12:00 Temperature 98.6 F 97.5 F L Pulse Rate 64 68 Respiratory Rate 20 16 Blood Pressure 140/99 H 122/68 Pulse Oximetry 99 96 96 Oxygen Delivery Method Room Air Oxygen Flow Rate 0 Narrative Exam Narrative: He is alert he is oriented HEENT is benign Joel a King catheter in place his abdomen is benign lumbar spine shows mild to moderate t enderness to palpation along the paraspinous muscles in the lower lumbar spine without palpable paraspinous muscle spasms, he has full range of motion in his hips bilaterally he has some mild numbness in bilateral lower extremities but is able to fire his toe flexors and extensors ankle dorsiflexors plantar flexors quads and hamstrings in bilateral lower extremities his feet are warm bilaterally and he has good capillary refill there is no significant edema Objective Labs Result Diagrams: 05/29/20 04:50 05/29/20 04:50 Labs: Laboratory Results - last 24 hr 05/28/20 05/28/20 05/28/20 16:55 17:55 17:55 WBC 16.7 H RBC 5.05 Hgb 16.5 Hct 49.8 MCV 98.6 MCH 32.8 MCHC 33.2 RDW 14.6 Plt Count 257 Neut % (Auto) 88.8 H Lymph % (Auto) 3.7 L Glascock % (Auto) 6.9 Eos % (Auto) 0.4 L Baso % (Auto) 0.2 Neut # (Auto) 76836 H Lymph # (Auto) 600 L [place]ock # (Auto) 1100 H Eos # (Auto) 100 Baso # (Auto) 0 Sodium 134 L Potassium 4.7 Chloride 100 Carbon Dioxide 32 BUN 29 H Creatinine 0.96 Estimated GFR > 60.0 BUN/Creatinine Ratio 30.2 H Glucose 105 Calcium 8.1 L Total Bilirubin 0.9 AST 33 ALT 32 Alkaline Phosphatase 231 H NT-Pro-B Natriuret Pep Total Protein 6.3 Albumin 3.0 L Globulin 3.3 Albumin/Globulin Ratio 0.9 L SARS-CoV-2 (PCR) Negative 05/28/20 05/29/20 05/29/20 17:55 04:50 04:50 WBC 15.3 H RBC 4.27 L Hgb 13.8 Hct 42.0 MCV 98.4 MCH 32.3 MCHC 32.8 RDW 15.0 H Plt Count 303 Neut % (Auto) 85.7 H Lymph % (Auto) 5.9 L [place]ock % (Auto) 7.2 Eos % (Auto) 0.6 L Baso % (Auto) 0.6 Neut # (Auto) 23270 H Lymph # (Auto) 900 L Gl[place]ock # (Auto) 1100 H Eos # (Auto) 100 Baso # (Auto) 100 Sodium 134 L Potassium 4.0 Chloride 104 Carbon Dioxide 27 BUN 28 H Creatinine 0.97 Estimated GFR > 60.0 BUN/Creatinine Ratio 28.9 H Glucose 93 Calcium 7.8 L Total Bilirubin AST ALT Alkaline Phosphatase NT-Pro-B Natriuret Pep 8110 H Total Protein Albumin Globulin Albumin/Globulin Ratio SARS-CoV-2 (PCR) 05/29/20 04:50 WBC RBC Hgb Hct MCV MCH MCHC RDW Plt Count Neut % (Auto) Lymph % (Auto) Glascock % (Auto) Eos % (Auto) Baso % (Auto) Neut # (Auto) Lymph # (Auto) Glascock # (Auto) Eos # (Auto) Baso # (Auto) Sodium Potassium Chloride Carbon Dioxide BUN Creatinine Estimated GFR BUN/Creatinine Ratio Glucose Calcium Total Bilirubin AST ALT Alkaline Phosphatase NT-Pro-B Natriuret Pep 6520 H Total Protein Albumin Globulin Albumin/Globulin Ratio SARS-CoV-2 (PCR) C reactive protein is 20.9. His sed rate is 10. Lumbar spine x-rays are reviewed from 05/20/2020 [facility] a show multiple level degenerative disc disease there is minimal abnormality of the superior endplate of L3, no obvious compression fracture Lumbar spine CT scan shows gas in the L2-3 disc with evidence of slight endplate erosion of L2 and L3, there is no obvious epidural abscess, there is no significant soft tissue mass. Assessment & Plan Assessment & Plan narrative: Impression is back pain secondary to possible L2-3 diskitis. He has responded to vancomycin in the past. He clearly is having significant problems with urosepsis. I think he needs treatment with IV antibiotics. He has responded to vancomycin in the past his current blood cultures are pending. Classic treatment for diskitis includes IV antibiotics for 6 weeks and treatment in a lumbar support brace. He does not have neurological compromise is no evidence of an epidural abscess and I think he likely can be treated non operatively. He should be mobilized out of bed with physical therapy ambulating in the cotter. He should use his brace when he is up out of bed does not needed in bed and is okay to have it off to shower. Quality VTE Deep Vein Thrombosis/Pulmonary Embolism Present on Admission: No
--- NOTE | 2020-05-29 14:00 | PT.IIE ---
Current Diagnoses Discitis, unspecified, lumbar region (05/28/20) Medical History (Last Reviewed 05/29/20 @ 13:08 by Molly Mccurdy MD) Enlarged prostate History of recurrent UTI (urinary tract infection) Hypertension Pacemaker Physical Therapy Inpatient Evaluation/Re-Eval M1 PT/OT-IP Prior Functional Status Start: 05/29/20 15:09 Freq: NEEDED Status: Active Protocol: Document 05/29/20 14:00 AB (Rec: 05/29/20 15:47 AB [id number]) Medical Review Prior Functional Status Medical History Reviewed Yes Communication able to make needs known; pt is [place] Mobility and Gait spouse stated that pt is modified independent with ambulation using 4WW; spouse stated that she assists pt with bed mobility and up/down 1 step to enter the house Social History Household Members spouse Living Arrangements House Number of Floors (Floors) One Floor Number of Stairs To Enter/Railing? 1 step to enter Home Environment High Toilet,Walk in Shower, Built-In Shower Seat Home Equipment Four Wheel Walker,Grab Bars Near Toilet,Grab Bars In Shower M2 PT-IP Current Condition Start: 05/29/20 15:09 Freq: NEEDED Status: Active Protocol: Document 05/29/20 14:00 AB (Rec: 05/29/20 15:47 AB [id number]) Physical Therapy Current Condition Current Condition Evaluation Date 05/29/20 Treatment Diagnosis L3 discitis; difficulty in walking Onset Date 05/28/20 Precautions Lumbar Precautions Log Roll,No Twisting,Limit Bending,Lifting Restriction of 10 lbs,Gait Belt above Incisional Area Other Precautions LSO when out of bed; can be off back brace when in bed and showers M3 PT-IP Subjective Start: 05/29/20 15:09 Freq: NEEDED Status: Active Protocol: Document 05/29/20 14:00 AB (Rec: 05/29/20 15:47 AB [id number]) Subjective Physical Therapy Visit Type Type Initial Evaluation Visit Start Time 14:00 Visit Stop Time 14:57 Total Visit Minutes 57 Number of ELECTRIC MOTOR WINDER Visits 0 Physical Therapy Visit Comments Patient Comments pt agreed to do PT Therapy Pain Assessment Pain When Pain Assessed At Rest Pain Present Pain Present Pain Reported Location lower back Intensity 4 Scale Used Numeric (0 - 10) Pain Management Techniques Distraction,Modification of Treatment,Re-positioning, Timing of Activity with Medications M4 PT-IP Mobility and Gait Start: 05/29/20 15:09 Freq: NEEDED Status: Active Protocol: Document 05/29/20 14:00 AB (Rec: 05/29/20 15:47 AB [id number]) PT-Bed Mobility Assessment Rolling Type of Rolling Log Rolling Supine to Sit Supine to Sit Contact Guard Assistance, Bedrails Sit to Supine Sit to Supine Contact Guard Assistance, Bedrails PT-Transfer Assessment Sit to and From Stand Sit to and from Stand Contact Guard Assistance,1 Person Assistance Equipment Transfer Assistive Device Gait Belt,Front Wheeled Walker Orthotic/Prosthetic Devices or Brace: No Transfer Ability Level of Assist Contact Guard Assistance,1 Person Assistance,Use of Upper Extremities Comments Mobility Comments educated on back precautions and log roll bed mobility. pt required cues with all tasks. spouse in room with pt. informed pt and spouse regarding order of back brace for pt and informed regarding wear guidelines. pt completed log roll SBA with cues and pt used bed rail. completed back brace fitting and adjustment. pt completed sit to stand CGA and ambulated in room using 4WW min A and cues. pt can be impulsive. pt presents with stooped posture and increase B knee flexion during ambulation and decrease step width. pt ambulated back to bed. caregiver training conducted for donning /doffing of back brace. spouse was able to put back brace on pt. bed mobility training conducted x 2 sets requiring CGA and cues. pt requested to stay in bed. positioned in bed. call light and table placed within reach. left pt with spouse in room. informed nurse regarding back brace and educated on donning/ doffing of brace. Gait Assessment Gait Gait Assistance Required: Minimum Assistance Distance (Feet) 25 Able to Maintain Weight Bearing Status Yes During Gait Assistive Devices Assistive Device Gait Belt,4 Wheeled Walker Orthotic/Prosthetic Devices or Brace: Yes Gait Deviations General Gait Pattern Antalgic,Decreased Stride Length,Decreased Feet Clearance,Flexed Trunk,Narrow Based Gait,Step-to Gait Factors Limiting Gait Function Factors Limiting Gait Function Decreased Activity Tolerance, Decreased Strength,Difficulty Following Directions,Pain,Poor Balance,Poor Safety Awareness Comments Gait Comments pls refer to mobility section for details PT-Balance Assessment Sitting Balance and Reactions Static Sitting Balance Ability Good Dynamic Sitting Balance Ability Good Standing Balance and Reactions Static Standing Balance Ability Fair Dynamic Standing Balance Ability Fair Device Used 4WW M5 PT-IP Objective Assessments Start: 05/29/20 15:09 Freq: NEEDED Status: Active Protocol: Document 05/29/20 14:00 AB (Rec: 05/29/20 15:47 AB [id number]) Orientation Orientation/Cognition Level of Alertness Alert Orientation Name,Place,Situation Safety Awareness Decreased Safety Awareness Gross Range of Motion Lower Extremity ROM Assessment Within Functional Limits Strength Lower Extremity Strength Hip 4-/5 Knee 4-/5 Coordination Assessment Gross Coordination Gross Coordination WNL Muscle Tone Muscle Tone WNL Yes M6 PT-IP Treatment Start: 05/29/20 15:09 Freq: NEEDED Status: Active Protocol: Document 05/29/20 14:00 AB (Rec: 05/29/20 15:47 AB [id number]) Physical Therapy Treatment Education Education Provided Precautions,Safety Brace Education [place],Caregiver Equipment Issued Equipment Type and Company LSO provided per Dr. Mccurdy's order: spouse signed papers and given copy LSO from [employer] Other Treatments Other Treatment Performed caregiver training conducted for donning/doffing of back brace M7 PT-IP Assessment and Plan Start: 05/29/20 15:09 Freq: NEEDED Status: Active Protocol: Document 05/29/20 14:00 AB (Rec: 05/29/20 15:47 AB [id number]) PT Summary Assessment and Plan Potential Rehabilitation Potential Good Status of Condition at Evaluation Evolving Summary Impairments Pain,ROM,Strength,Balance, Coordination,Cognition,Bed Mobility,Transfers,Gait, Activity Tolerance Assessment Summary pt requiring one person assist with mobility. will conduct caregiver training when appropriate as well as stair climbing. will continue to assess progress. pt may require HHPT. Goals Bed Mobility Goal Independent Transfer Goal Independent,Four Wheeled Walker Gait Goal Independent,Four Wheel Walker Gait Distance 150 Other Goals up/down 1 step SBA using 4WW Days to Meet Goals 5 Frequency of Treatment Frequency Of Treatment Once a Day Treatment Plan Physical Therapy Treatment Plan Bed Mobility Training,Transfer Training,Gait Training, Therapeutic Exercise,Balance Retraining,Discharge Planning, Hot or Cold Pack,Neuromuscular Re-ed,Coordination Retraining Other Recommendations and Next Treatment ambulation, caregiver training Focus , stair climbing Recommendations To Nursing Amount of Assist Needed 1 Person Assist Discharge Recommendations PT Discharge Recommendations Home with Assistance,Home Health Transportation Needs at Discharge Private Vehicle
--- NOTE | 2020-05-29 15:26 | PC.NURSE ---
AM Shift Pt is A/o x2, forgetful. Reports pain improved to back gettting scheduled motrin q6. PT met with Pt and applied back brace which is to be used when patient is out of bed, anytime up out of bed. Dr Mccurdy ordered PICC to 6weeks of ABX, DI RN into place @ 1500. Pt is adament he will d/c home not to a SNF. at bedside and helpful in refocusing Pt conversation.
--- NOTE | 2020-05-29 16:08 | DI.RAD.S_ITS ---
PROCEDURE: XR CHEST FOR PICC 1V INDICATIONS: line placement COMPARISON: [facility], RASTA, XR CHEST 1V, 04/22/2020, 7:26. [facility], CR, XR CHEST 2V, 09/26/2018, 10:37. FINDINGS: PICC was placed by the intravenous therapy team from the right side. Fluoroscopic spot film demonstrates the tip of PICC projecting to the area of atrial caval junction. IMPRESSION: Tip of PICC projects to the area of atrial caval junction. Mild chronic interstitial prominence, pacemaker and dual chamber leads normal. Dictated by: Joel Torres M.D. on 05/29/2020 at 16:28 Approved by: Joel Torres M.D. on 05/29/2020 at 16:29
[2020-05-29] MEDS: SENNOSIDES 8.6 MG TABLET 17.2 MG PO (20:17)
[2020-05-29] MEDS: MORPHINE 2 MG/ML INJ IV (20:44)
[2020-05-30] VITALS (9 sets, daily range): BP systolic 138–142; BP diastolic 71–77; PULSE 60–96; RESP 17–20; TEMP 35.6–37.2; O2SAT 96–97
[2020-05-30] MEDS: IBUPROFEN 600 MG TABLET PO ×4 (00:21→18:15)
[2020-05-30 04:14] LABS: Acinetobacter baumannii Not Detected (Not Detect); Candida albicans Not Detected (Not Detect); Candida glabrata Not Detected (Not Detect); Candida krusei Not Detected (Not Detect); Candida parapsilosis Not Detected (Not Detect); Candida tropicalis Not Detected (Not Detect); E. coli Not Detected (Not Detect); Enterobacter cloacae complex Not Detected (Not Detect); Enterobacteriaceae species Not Detected (Not Detect); Enterococcus species Not Detected (Not Detect); Haemophilus influenzae Not Detected (Not Detect); Listeria monocytogenes Not Detected (Not Detect); Methicillin-resistant gene Detected (Not Detect); Neisseria meningitidis Not Detected (Not Detect); Proteus species Not Detected (Not Detect); Pseudomonas aeruginosa Not Detected (Not Detect); Serratia marcescens Not Detected (Not Detect); Staphylococcus species Detected (Not Detect); Streptococcus agalactiae (Gr B Not Detected (Not Detect); Streptococcus pneumonia Not Detected (Not Detect); Streptococcus pyogenes (Gr A) Not Detected (Not Detect); Streptococcus species Not Detected (Not Detect)
[2020-05-30] MEDS: PANTOPRAZOLE 20 MG TABLET PO (05:32)
[2020-05-30 06:06] LABS: Add Manual Diff / Slide Review NO; Basophils Absolute Auto 100 /uL (0-100); Basophils Percent Auto 0.6 % (0-2); Eosinophils Absolute Auto 100 /uL (0-450); Eosinophils Percent Auto 0.8 % (2-4); Hematocrit 41.7 % (41-53); Hemoglobin 13.7 g/dL (13.5-17.5); Lymphocytes Absolute Auto 1000 /uL (1100-4500); Lymphocytes Percent Auto 8.9 % (25-40); Mean Corpuscular HGB Conc 32.9 % (30-36); Mean Corpuscular Hemoglobin 32.4 PG (26-34); Mean Corpuscular Volume 98.5 fL (80-100); Monocytes Absolute Auto 1000 /uL (0-900); Monocytes Percent Auto 8.5 % (3-14); Neutrophils Absolute Auto 9300 /uL (1500-7000); Neutrophils Percent Auto 81.2 % (50-75); Platelet Count 307 X10^3/uL (150-400); Red Blood Cell Count 4.24 X10^6/uL (4.5-5.9); Red Cell Distribution Width 14.7 % (11.6-14.8); White Blood Cell Count 11.4 X10^3/uL (4.5-11.0)
[2020-05-30 06:14] LABS: Alanine Aminotransferase 29 IU/L (<50); Albumin 2.5 g/dL (3.5-5.0); Albumin Globulin Ratio 0.8 (1.0-2.8); Alkaline Phosphatase 264 U/L (38-126); Aspartate Aminotransferase 27 IU/L (17-59); BUN Creatinine Ratio 27.1 (6-22); Bilirubin Total 0.5 mg/dL (0.2-1.3); Blood Urea Nitrogen 23 mg/dL (9-20); Calcium 7.8 mg/dL (8.4-10.2); Carbon Dioxide 25 mmol/L (22-32); Chloride 108 mmol/L (98-107); Estimated Glomerular Filt Rate > 60.0 mL/min (>60); Glucose 84 mg/dL (80-110); HEMOLYSIS < 15 (0-50); Potassium 3.8 mmol/L (3.4-5.1); Sodium 135 mmol/L (137-145); Total Protein 5.5 g/dL (6.3-8.2)
[2020-05-30 06:23] LABS: NT-proBNP (BNP-Adult 18+) 11800 pg/mL (<450)
[2020-05-30 07:59] LABS: Vancomycin Trough 13.4 ug/mL (10-20)
--- NOTE | 2020-05-30 08:37 | PC.NURSE ---
Addendum entered by Alejanrda Mosquera R.N. 05/30/20 13:09: Patients dalton catheter taken out, he had 300cc of yellow urine out. Patient also given 1 oxycodone and ibuprofen and this seems to be adequate for pain control. Original Note: Patient denies pain to his lower back. He is in good spirits this morning, has ivf infusing with normal saline. Blood drawn for Vanco trough, Awaiting results.
[2020-05-30] MEDS: VANCOMYCIN TROUGH 1 REQUEST MISC (09:24)
[2020-05-30] MEDS: TAMSULOSIN 0.4 MG CAPSULE PO (09:26)
--- NOTE | 2020-05-30 09:35 | P.PN_ITS ---
Subjective Subjective Date Patient Seen: 05/30/20 Time Patient Seen: 09:35 Interval history: Patient doing well. Feeling much better he says a little bit stronger. Was able to get up and walk around yesterday. Says he wants to go home although he is obviously not ready. Vital signs are stable. Orthopedic consultation yesterday. Reviewed previous chart notes scans blood culture results except for a. Patient lives at home with his in [facility]. Exam Vital Signs (past 8 hours): - 05/30/20 03:00 05/30/20 04:00 05/30/20 08:00 Temperature 97.7 F 97.7 F Pulse Rate 70 68 Respiratory Rate 18 17 Blood Pressure 138/71 142/72 H Pulse Oximetry 96 96 97 Oxygen Delivery Method Room Air Oxygen Flow Rate 0 Narrative Exam Narrative: Gen.: Alert good historian HEENT: Pupils equal round and reactive or mucosa is moist Cardio: S1-S2 regular rate and rhythm no appreciable heart murmurs Respiratory: Lungs are clear to auscultation no wheezes or crackles normal respiratory effort. Abdomen: Soft nontender no rebound or guarding no liver spleen enlargement no appreciable hernias Extremities: Full range of motion no appreciable weakness no cyanosis or edema. Neurologic: Grossly intact. Objective Labs Result Diagrams: 05/30/20 05:46 05/30/20 05:46 Labs: Laboratory Results - last 24 hr 05/30/20 05/30/20 05/30/20 05:46 05:46 07:35 WBC 11.4 H RBC 4.24 L Hgb 13.7 Hct 41.7 MCV 98.5 MCH 32.4 MCHC 32.9 RDW 14.7 Plt Count 307 Neut % (Auto) 81.2 H Lymph % (Auto) 8.9 L Garrett % (Auto) 8.5 Eos % (Auto) 0.8 L Baso % (Auto) 0.6 Neut # (Auto) 9300 H Lymph # (Auto) 1000 L Garrett # (Auto) 1000 H Eos # (Auto) 100 Baso # (Auto) 100 Sodium 135 L Potassium 3.8 Chloride 108 H Carbon Dioxide 25 BUN 23 H Creatinine 0.85 Estimated GFR > 60.0 BUN/Creatinine Ratio 27.1 H Glucose 84 Calcium 7.8 L Total Bilirubin 0.5 AST 27 ALT 29 Alkaline Phosphatase 264 H NT-Pro-B Natriuret Pep 80064 H Total Protein 5.5 L Albumin 2.5 L Globulin 3.0 Albumin/Globulin Ratio 0.8 L Vancomycin Trough 13.4 A. baumannii (PCR) Yahaira albicans (PCR) C. glabrata (PCR) C. krusei (PCR) C. parapsilosis (PCR) C. tropicalis (PCR) Enterobacteriac sp PCR E. cloacae complex PCR Enterococcus sp PCR E. coli (PCR) H. influenzae (PCR) Klebsiella oxytoca PCR Klebsiella pneumoniae List. monocytogenes PCR N. meningitidis (PCR) Proteus species (PCR) Serratia marcescens PCR Staphylococcus sp PCR Staph aureus (PCR) mecA-Methicil Res Gene Streptococcus sp PCR Group A Strep (PCR) Strep agalactiae (PCR) Strep pneumoniae (PCR) P. aeruginosa (PCR) Nicolas/B-Vanco Res Genes KPC-Carbap Res Gene PCR 05/30/20 19:40 WBC RBC Hgb Hct MCV MCH MCHC RDW Plt Count Neut % (Auto) Lymph % (Auto) Garrett % (Auto) Eos % (Auto) Baso % (Auto) Neut # (Auto) Lymph # (Auto) Garrett # (Auto) Eos # (Auto) Baso # (Auto) Sodium Potassium Chloride Carbon Dioxide BUN Creatinine Estimated GFR BUN/Creatinine Ratio Glucose Calcium Total Bilirubin AST ALT Alkaline Phosphatase NT-Pro-B Natriuret Pep Total Protein Albumin Globulin Albumin/Globulin Ratio Vancomycin Trough A. baumannii (PCR) Not detected Yahaira albicans (PCR) Not detected C. glabrata (PCR) Not detected C. krusei (PCR) Not detected C. parapsilosis (PCR) Not detected C. tropicalis (PCR) Not detected Enterobacteriac sp PCR Not detected E. cloacae complex PCR Not detected Enterococcus sp PCR Not detected E. coli (PCR) Not detected H. influenzae (PCR) Not detected Klebsiella oxytoca PCR Not detected Klebsiella pneumoniae Not detected List. monocytogenes PCR Not detected N. meningitidis (PCR) Not detected Proteus species (PCR) Not detected Serratia marcescens PCR Not detected Staphylococcus sp PCR Detected H Staph aureus (PCR) Detected H mecA-Methicil Res Gene Detected H Streptococcus sp PCR Not detected Group A Strep (PCR) Not detected Strep agalactiae (PCR) Not detected Strep pneumoniae (PCR) Not detected P. aeruginosa (PCR) Not detected Nicolas/B-Vanco Res Genes Not Reportable KPC-Carbap Res Gene PCR Not Reportable [facility] Medical History Enlarged prostate History of recurrent UTI (urinary tract infection) Hypertension Pacemaker Social History household members: spouse Smoking Status: Former smoker alcohol intake: current Assessment & Plan Assessment & Plan narrative: L2-L3 diskitis no signs of epidural abscess blood cultures positive for methicillin-resistant Staph aureus. Orthopedic consultation happened yesterday pre she had their input. Looking at antibiotic susceptibility vancomycin seems the best option for ongoing treatment of his infection of his spine. Talk to pharmacy today to see if we can not do 24 hour dosing if not he will need 24 hour dosing. Patient will need to go home with IV antibiotics for at least 6 weeks. Obtain CBC it tomorrow white blood cell counts are improving. Re test sed rate CRP. Will monitor for disease treatment and progress. Do not appreciate heart murmur will hold off on echocardiogram at this point for possible valvular heart disease. PICC line and place. Social service is working on IV antibiotic at home. Bacteremia with positive blood cultures with methicillin-resistant Staph aureus. Probably primary source of infection was his urinary Urinary obstruction with acute urinary retention and chronic urinary a transient with chronic urinary tract infection. Continue with current antibiotic choices. Would love to get his King catheter out of him talk to the nurse about that today. Patient has done self cathing at home. Will continue working through this and try to remove his King catheter. Congestive heart failure with reduced ejection fraction chronic stable. Appears to be okay on fluid status. Will DC IV fluid today. Continue with beta-luis and MELL-inhibitor. Essential hypertension chronic and stable. Disposition and plan. Work on arranging outpatient IV antibiotics. Remove King catheter today. Continue with home catheter teaching. DC IV pain m edications which to oral. Anticipate discharge 20/4 to 48 hours. Quality VTE Deep Vein Thrombosis/Pulmonary Embolism Present on Admission: No
[2020-05-30] MEDS: VANCOMYCIN 1,250 MG/250 ML PIGGYBACK 150 MG IV ×2 (09:41→20:09)
[2020-05-30] MEDS: ENOXAPARIN 40 MG/0.4 ML SYRINGE SUBCUT (09:41)
[2020-05-30] MEDS: lisinopriL 5 MG TABLET PO (09:42)
--- NOTE | 2020-05-30 10:48 | CM.DPC ---
Addendum entered by Geetha Humphrey LPN 05/30/20 12:33: Met with pt and Ashlee. Went over d/c plan in detail. Ashlee will be the primary contact for [facility] to discuss details both financial and otherwise. Pt says I just can't hear will enough. They report no Medicare D supplement and [employer] is a supplement so they know anticipate they will need to pay the full howe for the home antibiotic infusion services. HH is set up for [facility] and they are pleased that Medicare will cover this. They both say they are very committed to staying in the home setting no matter what needs arise and have worked to have the funds for same. Ashlee says she feels very confident in this home plan and her role in same. She wants to make sure that pt listens to the physician and does not insist on home before he is ready. Addendum entered by Geetha Humphrey LPN 05/30/20 11:20: Went to room for further discussion with pt and . OT/PT just starting a co-tx session. Stacie/PT confirms HH is recommended. Agreed to come back as soon as session completed to fine tune the details for d/c. Referral packet is prepared for HH: will discuss choice of agency first: Face/Face document will need to be completed tomorrow by Dr. Ramos. Plan for HH RN/OT/PT. Original Note: DCP: continued: EMR reviewed and case discussed with Dr. Ramos in Team Rounds. He confirms that plan is for IV antibiotics for 6 weeks, current vancomycin orders will be continued. He also plans to d/c the dalton catheter today and focus on the return to self cath routine that has been usual for pt. PT and OT are working with pt and he has the lumbar brace. Have spoken now with both pt and Ashlee (who will be here shortly for further discussion). Both confirm that SNF is not an option they will consider and that they are willing to pay whatever the insurance will not pay to get the antibiotics at home. Both are informed that they will be taught to do this by the Infusion team. Have referral into [facility] development consultant pharmacy team. Bebo will review and try to get an estimate of what if anything the second insurance: [employer] will cover. Referral given via phone conversation with Bebo and fax. Also updated face sheet info with pt's assist. They do not use a home line. His cell is [phone] (at bedside). Ashlee's cell is [phone]. Will likely also need HH. Will discuss same with Ashlee and pt once she arrives.
--- NOTE | 2020-05-30 11:00 | PT.IPTN ---
Current Diagnoses Discitis, unspecified, lumbar region (05/28/20) Physical Therapy Treatment Note M2 PT-IP Current Condition Start: 05/29/20 15:09 Freq: NEEDED Status: Active Protocol: Document 05/29/20 14:00 AB (Rec: 05/29/20 15:47 AB [id number]) Physical Therapy Current Condition Current Condition Evaluation Date 05/29/20 Treatment Diagnosis L3 discitis; difficulty in walking Onset Date 05/28/20 Precautions Lumbar Precautions Log Roll,No Twisting,Limit Bending,Lifting Restriction of 10 lbs,Gait Belt above Incisional Area Other Precautions LSO when out of bed; can be off back brace when in bed and showers M3 PT-IP Subjective Start: 05/29/20 15:09 Freq: NEEDED Status: Active Protocol: Document 05/30/20 11:00 AB (Rec: 05/30/20 13:23 AB [id number]) Subjective Physical Therapy Visit Type Type Treatment Note Visit Start Time 11:00 Visit Stop Time 11:35 Total Visit Minutes 35 Notes pt now has contact precaution: MRSA 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 of WOOD PATTERN MAKER Visits 0 Physical Therapy Visit Comments Patient Comments pt is agreeable to do PT Therapy Pain Assessment Pain When Pain Assessed At Rest Location lower back Scale Used pain scale not stated; not too much pain per pt Pain Management Techniques Modification of Treatment,Re- positioning,Timing of Activity with Medications M4 PT-IP Mobility and Gait Start: 05/29/20 15:09 Freq: NEEDED Status: Active Protocol: Document 05/30/20 11:00 AB (Rec: 05/30/20 13:23 AB [id number]) PT-Bed Mobility Assessment Rolling Type of Rolling Log Rolling Level of Assist Standby Assistance Supine to Sit Supine to Sit Standby Assistance Sit to Supine Sit to Supine Standby Assistance Scooting Scooting to Edge of Bed Standby Assistance PT-Transfer Assessment Sit to and From Stand Sit to and from Stand Contact Guard Assistance,1 Person Assistance Equipment Transfer Assistive Device Gait Belt,4 Wheeled Walker Orthotic/Prosthetic Devices or Brace: Yes Transfer Ability Level of Assist Minimal Assistance,1 Person Assistance,Use of Upper Extremities Comments Mobility Comments reviewed back precautions with pt and pt required cues to recall. spouse in room with pt. pt completed supine to sit log roll SBA. required cues to do log roll as pt can be impulsive. spouse was able to wiliam back brace. pt educated on use of back brace. pt wanted back brace more on SI area and educated on where his discitis is at and proper placement of back brace. completed sit to stand CGA and ambulated in room 75 ft using 4WW min A with (+) R knee buckling min A for stability. pt cued for upright posture, R quads activation, increase step width and safe use of 4WW . readjustment of back brace conducted. pt requested to go back to bed afterwards and reminded to do log roll sit to supine. pt completed SBA but tends to be impulsive and cued for safety/ precautions. positioned in bed. call light and table placed within reach. Left pt with spouse. Gait Assessment Gait Gait Assistance Required: Minimum Assistance Distance (Feet) 75 Able to Maintain Weight Bearing Status Yes During Gait Assistive Devices Assistive Device Gait Belt,4 Wheeled Walker Orthotic/Prosthetic Devices or Brace: Yes Gait Deviations General Gait Pattern Antalgic,Decreased Stride Length,Decreased Feet Clearance,Flexed Trunk,Narrow Based Gait,Step-to Gait Factors Limiting Gait Function Factors Limiting Gait Function Decreased Activity Tolerance, Decreased Strength,Limited Range of Motion,Pain,Poor Balance,Poor Safety Awareness M5 PT-IP Objective Assessments Start: 05/29/20 15:09 Freq: NEEDED Status: Active Protocol: Document 05/29/20 14:00 AB (Rec: 05/29/20 15:47 AB [id number]) Orientation Orientation/Cognition Level of Alertness Alert Orientation Name,Place,Situation Safety Awareness Decreased Safety Awareness Gross Range of Motion Lower Extremity ROM Assessment Within Functional Limits Strength Lower Extremity Strength Hip 4-/5 Knee 4-/5 Coordination Assessment Gross Coordination Gross Coordination WNL Muscle Tone Muscle Tone WNL Yes M6 PT-IP Treatment Start: 05/29/20 15:09 Freq: NEEDED Status: Active Protocol: Document 05/30/20 11:00 AB (Rec: 05/30/20 13:23 AB [id number]) Physical Therapy Treatment Education Education Provided Precautions,Safety Brace Education [place],Caregiver M7 PT-IP Assessment and Plan Start: 05/29/20 15:09 Freq: NEEDED Status: Active Protocol: Document 05/30/20 11:00 AB (Rec: 05/30/20 13:23 AB [id number]) PT Summary Assessment and Plan Potential Rehabilitation Potential Good Summary Impairments Pain,ROM,Strength,Balance, Coordination,Sensation,Tone, Cognition,Bed Mobility, Transfers,Gait,Activity Tolerance Progress Towards Goals Progressing Toward Goals Assessment Summary pt progressing with mobility but continues to has decrease safety awareness and requires cues for safety. spouse will assist pt at home as needed. will have to conduct up/down platform step using 4WW prior to d/c. pt will also benefit from HHPT for standing balance , LE strength and increasing safety awareness. pt educated on ortho doctor's back brace order and benefits. pt stated that he will use it if he wants to but he might not want to use it all the time. pt understands doctor's order and benefit of back brace. spouse also understood . Goals Bed Mobility Goal Independent Transfer Goal Independent,Four Wheeled Walker Gait Goal Independent,Four Wheel Walker Gait Distance 150 Other Goals up/down 1 step SBA using 4WW Days to Meet Goals 5 Frequency of Treatment Frequency Of Treatment Once a Day Treatment Plan Physical Therapy Treatment Plan Bed Mobility Training,Transfer Training,Gait Training, Therapeutic Exercise,Balance Retraining,Discharge Planning, Hot or Cold Pack,Neuromuscular Re-ed,Coordination Retraining Other Recommendations and Next Treatment ambulation, caregiver training Focus , stair climbing Recommendations To Nursing Amount of Assist Needed 1 Person Assist Discharge Recommendations PT Discharge Recommendations Home with Assistance,Home Health Transportation Needs at Discharge Private Vehicle
--- NOTE | 2020-05-30 11:35 | OT.IP.EVAL ---
Current Diagnoses Discitis, unspecified, lumbar region (05/28/20) Past Medical History (Last Reviewed 05/30/20 @ 09:39 by Vincent Ramos MD) Enlarged prostate History of recurrent UTI (urinary tract infection) Hypertension Pacemaker Occupational Therapy Inpatient Evaluation/Re-Eval M1 PT/OT-IP Prior Functional Status Start: 05/29/20 15:09 Freq: NEEDED Status: Active Protocol: Document 05/30/20 14:52 CGR (Rec: 05/30/20 15:00 CGR [id number]) Medical Review Prior Functional Status Medical History Reviewed Yes Communication able to make needs known; pt is [facility] Mobility and Gait spouse stated that pt is modified independent with ambulation using 4WW; spouse stated that she assists pt with bed mobility and up/down 1 step to enter the house Activities of Daily Living and IADL's Per spouse, pt needs assist with LB dressing and showering for the last month. Social History Household Members spouse Living Arrangements House Number of Floors (Floors) One Floor Number of Stairs To Enter/Railing? 1 step to enter Home Environment High Toilet,Walk in Shower, Built-In Shower Seat Home Equipment Four Wheel Walker,Grab Bars Near Toilet,Grab Bars In Shower Employment Status Retired M2 OT-IP Current Condition Start: 05/30/20 14:50 Freq: Status: Active Protocol: Document 05/30/20 14:52 CGR (Rec: 05/30/20 15:00 CGR [id number]) Occupational Therapy Current Condition Current Condition Evaluation Date 05/30/20 Treatment Diagnosis L2-3 diskitis Diagnosis Onset Date 05/28/20 Post Operative Precautions Lumbar Precautions Log Roll,No Twisting,Limit Bending,Lifting Restriction of 10 lbs,Gait Belt above Incisional Area Other Precautions back brace when out of bed M3 OT- IP Subjective and Pain Start: 05/30/20 14:50 Freq: Status: Active Protocol: Document 05/30/20 14:52 CGR (Rec: 05/30/20 15:00 CGR [id number]) OT- Subjective Occupational Therapy Visit Type Type Initial Evaluation Visit Start Time 11:01 Visit Stop Time 11:35 Total Visit Minutes 34 Notes co-treat with P.T. M4 OT- IP ADL's Start: 05/30/20 14:50 Freq: Status: Active Protocol: Document 05/30/20 14:52 CGR (Rec: 05/30/20 15:00 CGR [id number]) OT [id number] Comments OT Self-Feeding Comments Not meal time OT ADL-Grooming Comments OT Grooming Comments Pt refused OT ADL-Oral Care Comments Oral Care Comments Pt refused OT ADL-Dressing General Eval Lower Body Dressing Ability Total Assistance Areas Needing Assistance Socks OT ADL-Toileting Comments OT Toileting Comments Pt refused OT ADL-Bathing Comments OT Bathing Comments Pt refused M5 OT- IP IADL's Start: 05/30/20 14:50 Freq: Status: Active Protocol: Document 05/30/20 14:52 CGR (Rec: 05/30/20 15:00 CGR [id number]) OT-Instrumental Activities of Daily Living Deficits IADL Deficits Identified No Deficits Home Safety Awareness Awareness of Need for Assistance at Home Good Awareness Ability to Problem Solve Emergency Able to Problem Solve Situations M6 OT- IP Functional Cognition Start: 05/30/20 14:50 Freq: Status: Active Protocol: Document 05/30/20 14:52 CGR (Rec: 05/30/20 15:00 CGR [id number]) Cognitive Factors Limiting Selfcare Function Cognitive Ability Level of Alertness Alert Patient Orientation Name,Age,Birthday,Month,Date, Year,Day of Week,Place, Situation Attention Span Ability Capable of Focused Attention, Capable of Sustained Attention Ability to Follow Commands Able to Follow One Step Commands with Increased Time, Able to Follow One Step Commands with Repetition OT- Vision and Hearing OT- Hearing Assessment OT- Hearing Assessment Hearing Impaired OT- Vision Assessment Visual Acuity Glasses All The Time Visual Attentiveness WFL Occular Pursuits WFL Visual Convergence WFL M7 OT- IP Mobility and Balance Start: 05/30/20 14:50 Freq: Status: Active Protocol: Document 05/30/20 14:52 CGR (Rec: 05/30/20 15:00 CGR [id number]) OT- Bed Mobility Assessment Rolling Type of Rolling Log Rolling Level of Assistance Standby Assistance Supine to Sit Supine to Sit Assist Standby Assistance Sit to Supine Sit to Supine Assist Standby Assistance Scooting Scooting to Edge of Bed Standby Assistance OT-Transfer Assessment Sit to and From Stand Sit to and from Stand Minimal Assistance Transfers Transfer Ability Minimal Assistance Technique Transfer Destination Bed Transfer Technique Stand Step Pivot Devices Transfer Assistive Devices Gait Belt,4 Wheeled Walker Comments Mobility Comments Pt with poor safety with mobility and use of 4ww but declines to use 2ww. Pt ambulated around the room multiple times but declined toileting or other ADLs. OT- Balance Assessment Sitting Balance and Reactions Static Sitting Balance Ability Good Dynamic Sitting Balance Ability Fair M8 OT- IP Objective Assessments Start: 05/30/20 14:50 Freq: Status: Active Protocol: Document 05/30/20 14:52 CGR (Rec: 05/30/20 15:00 CGR [id number]) OT Gross Range of Motion Upper Extremity Range of Motion Assessment Within Functional Limits OT Strength Upper Extremity Strength Assessment Within Functional Limits Comments Strength Comments grossly 4+/5 OT- Coordination Assessment Upper Extremity Finger to Nose Test Within Functional Limits Finger Tapping Test Within Functional Limits OT-Muscle Tone Assessment Muscle Tone WNL Yes OT Sensation Assessment Edema Edema Absent M9 OT- IP Assessment and Plan Start: 05/30/20 14:50 Freq: Status: Active Protocol: Document 05/30/20 14:52 CGR (Rec: 05/30/20 15:00 CGR [id number]) OT Summary Assessment and Plan Potential Rehabilitation Potential Good Analytic Complexity at Evaluation Low Summary OT Impairments Balance,Functional Mobility, Activity Tolerance Progress Towards Goals Safe For Discharge,Goals Met Assessment Summary Pt presents as a low complexity evaluation s/p admit for back pain L2-3 diskitis. Pt is impulsive with poor safety but not agreeable to most OT activities. PT is agreeable to P.t. services. Pt 's spouse states that she is able and willing to assist with ADLs at home. Recommend home health aid upon discharge . No further OT needs as pt is not interested in further training. Will discharge the order. Frequency of Treatment Frequency Of Treatment Discharge Discharge Recommendations OT Discharge Recommendations Home with Assistance Transportation Needs at Discharge Private Vehicle
[2020-05-30] MEDS: OXYCODONE IR 5 MG TABLET PO (12:34)
[2020-05-30] MEDS: SENNOSIDES 8.6 MG TABLET 17.2 MG PO (20:09)
[2020-05-30] MEDS: carvediloL 3.125 MG TABLET PO (20:09)
--- NOTE | 2020-05-30 21:08 | PC.NURSE ---
Addendum entered by Tabitha Mcintosh R.N. 05/30/20 21:21: New orders to replace dalton cath. Original Note: Shift note: Patient has made multiple attempts to void on shift but has been unsuccessful. Bladder scan done at 2100 for estimate greater than 400ml. No orders in patient chart for if patient is unable to void, put call into answering service for orders from physician hairspring fabrication supervisor.
[2020-05-31] VITALS (13 sets, daily range): BP systolic 130–146; BP diastolic 68–85; PULSE 69–73; RESP 16–20; TEMP 36.3–37.6; O2SAT 95–97
[2020-05-31] MEDS: IBUPROFEN 600 MG TABLET PO ×5 (00:33→23:52)
[2020-05-31] MEDS: PANTOPRAZOLE 20 MG TABLET PO (05:30)
[2020-05-31 06:00] LABS: Add Manual Diff / Slide Review NO; Basophils Absolute Auto 100 /uL (0-100); Basophils Percent Auto 0.8 % (0-2); Eosinophils Absolute Auto 100 /uL (0-450); Eosinophils Percent Auto 0.8 % (2-4); Hematocrit 43.4 % (41-53); Hemoglobin 14.6 g/dL (13.5-17.5); Lymphocytes Absolute Auto 700 /uL (1100-4500); Lymphocytes Percent Auto 7.7 % (25-40); Mean Corpuscular HGB Conc 33.6 % (30-36); Mean Corpuscular Hemoglobin 32.9 PG (26-34); Mean Corpuscular Volume 97.8 fL (80-100); Monocytes Absolute Auto 800 /uL (0-900); Monocytes Percent Auto 8.2 % (3-14); Neutrophils Absolute Auto 7600 /uL (1500-7000); Neutrophils Percent Auto 82.5 % (50-75); Platelet Count 272 X10^3/uL (150-400); Red Blood Cell Count 4.44 X10^6/uL (4.5-5.9); Red Cell Distribution Width 14.5 % (11.6-14.8); White Blood Cell Count 9.2 X10^3/uL (4.5-11.0)
[2020-05-31 06:04] LABS: BUN Creatinine Ratio 20.8 (6-22); Blood Urea Nitrogen 16 mg/dL (9-20); C-Reactive Protein Quant 7.6 mg/dL (<1.0); Calcium 7.8 mg/dL (8.4-10.2); Carbon Dioxide 27 mmol/L (22-32); Chloride 108 mmol/L (98-107); Estimated Glomerular Filt Rate > 60.0 mL/min (>60); Glucose 91 mg/dL (80-110); HEMOLYSIS < 15 (0-50); Potassium 3.5 mmol/L (3.4-5.1); Sodium 134 mmol/L (137-145)
[2020-05-31 06:28] LABS: Erythrocyte Sedimentation Rate 39 MM/HR (0-15)
--- NOTE | 2020-05-31 07:29 | P.PN_ITS ---
Subjective Subjective Date Patient Seen: 05/31/20 Time Patient Seen: 07:29 Interval history: Patient did well overnight. Patient is again anxious to go home. King catheter was removed yesterday. Had to be placed again last night because of urinary retention. Ongoing discussion about self catheterization at home which is difficult for the patient to do. Does have an outpatient urological consultation. Patient is on Flomax. Vitals been afebrile. Patient's pain been doing okay he is ambulating eating well. Sed rate elevated CRP is improved. White blood cell count is now normal. No new her nursing staff concerns overnight. Working on outpatient anti biotics. Exam Vital Signs (past 8 hours): - 05/31/20 00:24 05/31/20 01:04 05/31/20 04:00 Temperature 97.7 F 97.3 F L Pulse Rate 70 70 Respiratory Rate 18 20 Blood Pressure 138/72 130/68 Pulse Oximetry 95 95 97 Oxygen Delivery Method Room Air Oxygen Flow Rate 0 Narrative Exam Narrative: Gen.: Alert good historian mildly anxious HEENT: Pupils equal round and reactive or mucosa is moist neck is supple Cardio: S1-S2 regular rate and rhythm no appreciable murmurs Respiratory: Normal respiratory effort lungs are clear Abdomen: Soft nontender no rebound or guarding no liver spleen enlargement no appreciable hernias Extremities: Full range of motion no appreciable weakness no cyanosis or edema. Objective Labs Result Diagrams: 05/31/20 05:35 05/31/20 05:35 Labs: Laboratory Results - last 24 hr 05/30/20 05/31/20 05/31/20 07:35 05:35 05:35 WBC 9.2 RBC 4.44 L Hgb 14.6 Hct 43.4 MCV 97.8 MCH 32.9 MCHC 33.6 RDW 14.5 Plt Count 272 Neut % (Auto) 82.5 H Lymph % (Auto) 7.7 L [place] % (Auto) 8.2 Eos % (Auto) 0.8 L Baso % (Auto) 0.8 Neut # (Auto) 7600 H Lymph # (Auto) 700 L [place] # (Auto) 800 Eos # (Auto) 100 Baso # (Auto) 100 ESR 39 H Sodium 134 L Potassium 3.5 Chloride 108 H Carbon Dioxide 27 BUN 16 Creatinine 0.77 Estimated GFR > 60.0 BUN/Creatinine Ratio 20.8 Glucose 91 Calcium 7.8 L C-Reactive Protein 7.6 H Vancomycin Trough 13.4 PFSH Medical History Enlarged prostate History of recurrent UTI (urinary tract infection) Hypertension Pacemaker Social History household members: spouse Smoking Status: Former smoker alcohol intake: current Assessment & Plan Assessment & Plan narrative: L2-L3 diskitis no signs of epidural abscess blood cultures positive for methicillin-resistant Staph aureus. Orthopedic consultation happened yesterday pre she had their input. Discussed with pharmacy about spacing out antibiotics to Q 24 hours if possible. Patient will be love on long-term vancomycin at least 6 weeks. There was some concern about the ability to do this at home. This is ongoing work with discharge planning. Anticipate trying to discharge patient home tomorrow things go well. Bacteremia with positive blood cultures with methicillin-resistant Staph aureus. Probably primary source of infection was his urinary tract. Urinary obstruction with acute urinary retention and chronic urinary a transient with chronic urinary tract infection. King was removed yesterday replaced last night. Not successful. Patient would really like to keep it in until discharge or even at home he can. Congestive heart failure with reduced ejection fraction chronic stable. No changes to medication. Essential hypertension chronic and stable. Disposition and plan. King catheter out today with self in [place] 3rd catheterization with Nurse Education. IV antibiotics hopefully will be arranged by Monday patient can be discharged home tomorrow. Dr. Handy will take over patient's care tomorrow. Quality VTE Deep Vein Thrombosis/Pulmonary Embolism Present on Admission: No
[2020-05-31] MEDS: lisinopriL 5 MG TABLET PO (08:23)
[2020-05-31] MEDS: TAMSULOSIN 0.4 MG CAPSULE PO (08:23)
[2020-05-31] MEDS: VANCOMYCIN 1,250 MG/250 ML PIGGYBACK 187.5 MG IV ×2 (08:25→20:07)
[2020-05-31] MEDS: ENOXAPARIN 40 MG/0.4 ML SYRINGE SUBCUT (08:25)
[2020-05-31] MEDS: LIDOCAINE PATCH 1 EACH ADH..PATCH TOP (08:27)
[2020-05-31] MEDS: carvediloL 3.125 MG TABLET PO ×2 (08:28→20:07)
--- NOTE | 2020-05-31 11:34 | PT.IPTN ---
Current Diagnoses Discitis, unspecified, lumbar region (05/28/20) Physical Therapy Treatment Note M2 PT-IP Current Condition Start: 05/29/20 15:09 Freq: NEEDED Status: Active Protocol: Document 05/29/20 14:00 AB (Rec: 05/29/20 15:47 AB [id number]) Physical Therapy Current Condition Current Condition Evaluation Date 05/29/20 Treatment Diagnosis L3 discitis; difficulty in walking Onset Date 05/28/20 Precautions Lumbar Precautions Log Roll,No Twisting,Limit Bending,Lifting Restriction of 10 lbs,Gait Belt above Incisional Area Other Precautions LSO when out of bed; can be off back brace when in bed and showers M3 PT-IP Subjective Start: 05/29/20 15:09 Freq: NEEDED Status: Active Protocol: Document 05/31/20 11:34 DLM (Rec: 05/31/20 13:08 DLM [id number]) Subjective Physical Therapy Visit Type Type Treatment Note Visit Start Time 11:00 Visit Stop Time 11:34 Total Visit Minutes 34 Number of WASHING TUB OPERATOR Visits 0 Physical Therapy Visit Comments Patient Comments He refused to wear the back brace. He refused the giat belt. He wants to walk in the cotter. Patient Goals He wants to go home Therapy Pain Assessment Pain When Pain Assessed After Treatment Pain Present Pain Present Pain Reported Location lower back Intensity 5 Scale Used Numeric (0 - 10) Description Aching Pain Management Techniques Re-positioning M4 PT-IP Mobility and Gait Start: 05/29/20 15:09 Freq: NEEDED Status: Active Protocol: Document 05/31/20 11:34 DLM (Rec: 05/31/20 13:08 DLM [id number]) PT-Bed Mobility Assessment Supine to Sit Supine to Sit Standby Assistance Sit to Supine Sit to Supine Standby Assistance Scooting Scooting to Edge of Bed Independent Scooting Up and Down in Bed Independent PT-Transfer Assessment Sit to and From Stand Sit to and from Stand Standby Assistance,Use of Upper Extremities Equipment Transfer Assistive Device Gait Belt,Front Wheeled Walker Transfers Transfer Destination Bed,Toilet Transfer Technique Stand Step Pivot Transfer Ability Level of Assist Standby Assistance,Use of Upper Extremities Comments Mobility Comments Pt up to toilet but refused to allow therapist in bathroom with him for safety. Pt returned to bed after gait. He reports a mild increase in his back pain after gait/ activity. Frequently cued pt to avoid twisting motions of his back when up moving. He refused to log roll. Gait Assessment Gait Gait Assistance Required: Standby Assistance,Contact Guard Assist Distance (Feet) 400 Assistive Devices Assistive Device 4 Wheeled Walker Gait Deviations General Gait Pattern Flexed Trunk,Narrow Based Gait Factors Limiting Gait Function Factors Limiting Gait Function Pain,Poor Safety Awareness Comments Gait Comments Pt is very motivated to ambulate in the halls today. He agreed to wear a clean gown and avoid touching surfaces outside of his room to manage his contact precautions associated with his MRSA infection. He likes to turn his trunk to look into rooms and refused to avoid these motions for spine protection. M5 PT-IP Objective Assessments Start: 05/29/20 15:09 Freq: NEEDED Status: Active Protocol: Document 05/29/20 14:00 AB (Rec: 05/29/20 15:47 AB [id number]) Orientation Orientation/Cognition Level of Alertness Alert Orientation Name,Place,Situation Safety Awareness Decreased Safety Awareness Gross Range of Motion Lower Extremity ROM Assessment Within Functional Limits Strength Lower Extremity Strength Hip 4-/5 Knee 4-/5 Coordination Assessment Gross Coordination Gross Coordination WNL Muscle Tone Muscle Tone WNL Yes M6 PT-IP Treatment Start: 05/29/20 15:09 Freq: NEEDED Status: Active Protocol: Document 05/31/20 11:34 DLM (Rec: 05/31/20 13:08 [facility] [id number]) Physical Therapy Treatment Education Education Provided Safety M7 PT-IP Assessment and Plan Start: 05/29/20 15:09 Freq: NEEDED Status: Active Protocol: Document 05/31/20 11:34 DLM (Rec: 05/31/20 13:08 [facility] [id number]) PT Summary Assessment and Plan Potential Rehabilitation Potential Good Summary Impairments Pain,ROM,Strength,Balance, Coordination,Sensation,Tone, Cognition,Bed Mobility, Transfers,Gait,Activity Tolerance Progress Towards Goals Progressing Toward Goals Assessment Summary Josesito continue to progress [facility] therapy. He reports his back pain has improved. He is not compliant with safety protocals nor with wearing of his TLSO. Ortho is aware of this problem. His is not able to convince him to wear the back brace. His distance of gait has improved and his functional strength shows improvement. Continue to plan for discharge home with his to assist him. He could benefit from home health therapy but unclear if pt will agree to home health therapy. Goals Bed Mobility Goal Independent Transfer Goal Independent,Four Wheeled Walker Gait Goal Independent,Four Wheel Walker Gait Distance 150 Other Goals up/down 1 step SBA using 4WW Days to Meet Goals 5 Frequency of Treatment Frequency Of Treatment Twice a Day Treatment Plan Physical Therapy Treatment Plan Bed Mobility Training,Transfer Training,Gait Training, Therapeutic Exercise,Balance Retraining,Discharge Planning, Hot or Cold Pack,Neuromuscular Re-ed,Coordination Retraining Recommendations To Nursing Amount of Assist Needed 1 Person Assist Discharge Recommendations PT Discharge Recommendations Home with Assistance,Home Health Other Discharge Recommendations plans to assist him at home Transportation Needs at Discharge Private Vehicle
--- NOTE | 2020-05-31 11:45 | PM.PNPO.1 ---
Subjective Subjective Date Patient Seen: 05/31/20 Time Patient Seen: 11:46 Interval history: He notes that doing a little better. His back pain is decreased. They attempted to discontinue his King and he had difficulty self cathing any had have the King replaced. He has been up ambulating with therapy. He mobilizes well with his walker. He has used his brace some. Exam Vital Signs (past 8 hours): - 05/31/20 04:00 05/31/20 08:00 05/31/20 08:23 Temperature 97.3 F L 98.7 F Pulse Rate 70 69 69 Respiratory Rate 20 19 Blood Pressure 130/68 141/85 H 141/68 H Pulse Oximetry 97 95 05/31/20 08:28 Temperature Pulse Rate 69 Respiratory Rate Blood Pressure 141/68 H Pulse Oximetry Oxygen Delivery Method Room Air Oxygen Flow Rate 0 Narrative Exam Narrative: Neurologically intact distally, calfs soft bilaterally, tenderness to palpation along the paraspinous muscles of the lumbar spine, mild restricted range of motion lumbar spine Objective Labs Result Diagrams: 05/31/20 05:35 05/31/20 05:35 Labs: Laboratory Results - last 24 hr 05/31/20 05/31/20 05:35 05:35 WBC 9.2 RBC 4.44 L Hgb 14.6 Hct 43.4 MCV 97.8 MCH 32.9 MCHC 33.6 RDW 14.5 Plt Count 272 Neut % (Auto) 82.5 H Lymph % (Auto) 7.7 L Hawkins % (Auto) 8.2 Eos % (Auto) 0.8 L Baso % (Auto) 0.8 Neut # (Auto) 7600 H Lymph # (Auto) 700 L Hawkins # (Auto) 800 Eos # (Auto) 100 Baso # (Auto) 100 ESR 39 H Sodium 134 L Potassium 3.5 Chloride 108 H Carbon Dioxide 27 BUN 16 Creatinine 0.77 Estimated GFR > 60.0 BUN/Creatinine Ratio 20.8 Glucose 91 Calcium 7.8 L C-Reactive Protein 7.6 H PFSH Medical History Enlarged prostate History of recurrent UTI (urinary tract infection) Hypertension Pacemaker Social History household members: spouse Smoking Status: Former smoker alcohol intake: current Assessment & Plan Post-op Postoperative Postoperative status narrative: He is improving on IV antibiotics. His cultures were positive for Staph aureus. It is sensitive to vancomycin. His C reactive protein and sedimentation rate are both elevated but his white count has improved. I think he needs 3 to 6 weeks of IV antibiotics. He should return to see me in about 3 weeks for re-evaluation and x-ray. I would repeat his sed rate C-reactive protein and CBC on a weekly basis. I discussed with the family that the long-term strategy needs to include attempting to get adequate urinary drainage rate does not get recurrent infections. Both an indwelling King catheter and intermittent self cathing carry a risk of recurrent infections. Quality VTE Deep Vein Thrombosis/Pulmonary Embolism Present on Admission: No
[2020-05-31] MEDS: OXYCODONE IR 5 MG TABLET PO (14:12)
--- NOTE | 2020-05-31 14:45 | PC.NURSE ---
Spoke with Dr. Ramos- he instructed that the dalton will stay in place today and Dr. Handy will see pt tomorrow to evaluate whether it should be removed then.
--- NOTE | 2020-05-31 15:30 | PT-IP ANOTE ---
Attempted physical therapy treatment but pt reports he is having too much back pain at this time. He has taken some medication to help manage his pain. Offered to help with repositioning in bed but pt declined. Will check back later today as time allows.
--- NOTE | 2020-05-31 16:46 | PT-IP ANOTE ---
Re-check on patient for afternoon treatment session. He declined physical therapy at this time. He reports his pain has improved and he is distracting himself with the football game. He is tired and wants to wait for tomorrow before doing more walking.
--- NOTE | 2020-05-31 18:21 | PC.NURSE ---
Shift note: Patients alert this RN to concerns that patient was not having urine out of dalton catheter and patient was c/o burning in bladder. Found that external catheter had become pinched in patient's underwear and relieved this pinch. Returned to patient's room after about an hour to find that urine had not started to flow and patient was now leaking urine around dalton from urethra that was blood tinged. Bladder scanned patient for estimated volume of 376ml. At this time deflated balloon, cleaned external portion of dalton catheter with alcohol pad, and pushed line further into bladder. At that time had sudden appearance of blood tinged urine start to flow into catheter line with a noticeable clot eventually appearing in the line. Reinflated balloon with no complaints of pain from patient and his burning sensation had resolved. Urine continued to flow into catheter bag and returned to a straw color.
[2020-05-31] MEDS: SENNOSIDES 8.6 MG TABLET 17.2 MG PO (20:07)
[2020-06-01 05:09] VITALS: BP 147/76; PULSE 69; RESP 16; TEMP 37.4; O2SAT 96
[2020-06-01] MEDS: IBUPROFEN 600 MG TABLET PO (05:22)
[2020-06-01] MEDS: PANTOPRAZOLE 20 MG TABLET PO (06:12)
[2020-06-01 08:03] VITALS: BP 148/90; PULSE 70; RESP 16; TEMP 36.1; O2SAT 95
[2020-06-01] MEDS: VANCOMYCIN 1,250 MG/250 ML PIGGYBACK 187.5 MG IV (08:03)
[2020-06-01 08:04] VITALS: BP 148/90; PULSE 71
[2020-06-01] MEDS: carvediloL 3.125 MG TABLET PO (08:04)
[2020-06-01 08:05] VITALS: BP 148/90
[2020-06-01] MEDS: TAMSULOSIN 0.4 MG CAPSULE PO (08:05)
[2020-06-01] MEDS: lisinopriL 5 MG TABLET PO (08:05)
[2020-06-01] MEDS: LIDOCAINE PATCH 1 EACH ADH..PATCH TOP (08:05)
[2020-06-01] MEDS: ENOXAPARIN 40 MG/0.4 ML SYRINGE SUBCUT (08:05)
--- NOTE | 2020-06-01 09:22 | CM.DPC ---
DCP Cont: Had Dr. Handy sign a face to face. He is discharging patient today. He signed a prescription for Vancomycin Q12 hours. Faxed it to [facility]. Everett stated that he will contact team today, discussion has already occurred with regarding financial aspect. He will update this case therapist if he will come for teaching, or go to the home. Called Estrella at [facility] and updated her. DC Summary is pending, but faxed over face to face, orders, and 2/6 progress note. P: Patient is discharging home with [facility] RN, P.t, O.T. Asking office assistant receptionist, Sita, to fax them DC Summary when completed. Everett will call back regarding if he will come here for teaching, or go to the home. He will also be in contact with . Mary Soliz RN/Sustainable Products Marketing Manager
--- NOTE | 2020-06-01 10:05 | PT.IPTN ---
Current Diagnoses Discitis, unspecified, lumbar region (05/28/20) Physical Therapy Treatment Note M2 PT-IP Current Condition Start: 05/29/20 15:09 Freq: NEEDED Status: Active Protocol: Document 06/01/20 10:11 MA (Rec: 06/01/20 10:31 MA [email or web address]) Physical Therapy Current Condition Current Condition Evaluation Date 05/29/20 Treatment Diagnosis L3 discitis; difficulty in walking Onset Date 05/28/20 Precautions Lumbar Precautions Log Roll,No Twisting,Limit Bending,Lifting Restriction of 10 lbs,Gait Belt above Incisional Area Other Precautions back brace when out of bed M3 PT-IP Subjective Start: 05/29/20 15:09 Freq: NEEDED Status: Active Protocol: Document 06/01/20 10:11 MA (Rec: 06/01/20 10:31 MA [email or web address]) Subjective Physical Therapy Visit Type Type Treatment Note Visit Start Time 09:45 Visit Stop Time 10:02 Total Visit Minutes 17 Notes pt now has contact precaution: MRSA Number of STUDENT OUTREACH COORDINATOR Visits 1 Physical Therapy Visit Comments Patient Comments Pt refuses to wear back brace, gown or gait belt to walk in hallway today. He states he will do one step, but only in his room and he will walk 3x a day when I get home. Patient Goals He wants to go home Therapy Pain Assessment Pain When Pain Assessed After Treatment Pain Present Pain Present Pain Reported Location lower back Intensity 4 Scale Used Numeric (0 - 10) Pain Management Techniques Re-positioning M4 PT-IP Mobility and Gait Start: 05/29/20 15:09 Freq: NEEDED Status: Active Protocol: Document 06/01/20 10:11 MA (Rec: 06/01/20 10:31 MA [email or web address]) PT-Bed Mobility Assessment Rolling Type of Rolling Log Rolling Level of Assist Standby Assistance Supine to Sit Supine to Sit Standby Assistance Sit to Supine Sit to Supine Standby Assistance Scooting Scooting to Edge of Bed Independent Scooting Up and Down in Bed Independent PT-Transfer Assessment Sit to and From Stand Sit to and from Stand Standby Assistance,Use of Upper Extremities Equipment Transfer Assistive Device Front Wheeled Walker Orthotic/Prosthetic Devices or Brace: No Comments Mobility Comments Pt refused to wear LSO out of bed. He sat up without log rolling initially with STUDENT OUTREACH COORDINATOR reminding pt he has precautions he needs to follow . Pt unable to repeat precautions to therapist. Pt states he will only do the one step and then I will get back in bed. Pt SBA- independent for all bed mobility. Gait Assessment Gait Gait Assistance Required: Standby Assistance Distance (Feet) 20 Able to Maintain Weight Bearing Status Yes During Gait Assistive Devices Assistive Device 4 Wheeled Walker Orthotic/Prosthetic Devices or Brace: No Gait Deviations General Gait Pattern Flexed Trunk,Narrow Based Gait Factors Limiting Gait Function Factors Limiting Gait Function Pain,Poor Safety Awareness Comments Gait Comments Pt states that he walked yesterday and does not want to walk today. He refuses to wear gait belt or LSO out of bed stating he will wear the brace when I get home and I go for walks outside. STUDENT OUTREACH COORDINATOR reminding pt of importance of back brace for recovery with pt standing up and stating I know, now let's get this over with. He ambulated 10 feet in room to single step and 10 feet back to bed, SBA with 4WW . Stair Climbing Assessment Evaluation Level of Assist On Stairs Standby Assistance,Contact Guard Assistance Devices Stair Climbing Assistive Devices Four Wheel Walker Technique/Endurance Stair Climbing Direction Ascend and Descend Number of Steps Climbed 1 Comments Stair Climbing Comments Pt impulsive throughout session. He is able to lift walker up onto platform step, stating this is higher than the step at home but I can do it. Pt able to step up SBA, with 4WW placed on platform before stepping up. Pt descends by stepping backwards , CGA, then brings walker off step. PT-Balance Assessment Sitting Balance and Reactions Static Sitting Balance Ability Good Dynamic Sitting Balance Ability Good Standing Balance and Reactions Static Standing Balance Ability Good Dynamic Standing Balance Ability Fair Device Used 4WW M5 PT-IP Objective Assessments Start: 05/29/20 15:09 Freq: NEEDED Status: Active Protocol: Document 05/29/20 14:00 AB (Rec: 05/29/20 15:47 AB [id number]) Orientation Orientation/Cognition Level of Alertness Alert Orientation Name,Place,Situation Safety Awareness Decreased Safety Awareness Gross Range of Motion Lower Extremity ROM Assessment Within Functional Limits Strength Lower Extremity Strength Hip 4-/5 Knee 4-/5 Coordination Assessment Gross Coordination Gross Coordination WNL Muscle Tone Muscle Tone WNL Yes M6 PT-IP Treatment Start: 05/29/20 15:09 Freq: NEEDED Status: Active Protocol: Document 06/01/20 10:11 MA (Rec: 06/01/20 10:31 MA [email or web address]) Physical Therapy Treatment Education Education Provided Precautions,Safety Brace Education Patient Other Treatments Other Treatment Performed Reminded pt how to don/doff back brace and the importance of wearing it when OOB. Therpist had pt repeat precautions back at end of session. M7 PT-IP Assessment and Plan Start: 05/29/20 15:09 Freq: NEEDED Status: Active Protocol: Document 06/01/20 10:11 MA (Rec: 06/01/20 10:31 MA [email or web address]) PT Summary Assessment and Plan Potential Rehabilitation Potential Good Summary Impairments Pain,ROM,Strength,Balance, Coordination,Sensation,Tone, Cognition,Bed Mobility, Transfers,Gait,Activity Tolerance Progress Towards Goals Progressing Toward Goals Assessment Summary Pt is impulsive and needs reminders for spinal precautions. He is not compliant with wearing his TLSO and refuses the gait belt . He was able to complete stair training today and needed only CGA for descending single step. When getting back into bed, he followed spinal precautions and laid on his side before rolling onto his back. After two reminders of spinal precautions, pt was able to repeat them back to therapist at end of session. All needs within reach at end of session with nurse present in room. Goals Bed Mobility Goal Independent Transfer Goal Independent,Four Wheeled Walker Gait Goal Independent,Four Wheel Walker Gait Distance 150 Other Goals up/down 1 step SBA using 4WW Days to Meet Goals 5 Frequency of Treatment Frequency Of Treatment Twice a Day Treatment Plan Physical Therapy Treatment Plan Bed Mobility Training,Transfer Training,Gait Training, Therapeutic Exercise,Balance Retraining,Discharge Planning, Hot or Cold Pack,Neuromuscular Re-ed,Coordination Retraining Recommendations To Nursing Amount of Assist Needed 1 Person Assist Discharge Recommendations PT Discharge Recommendations Home with Assistance,Home Health Other Discharge Recommendations plans to assist him at home Transportation Needs at Discharge Private Vehicle
--- NOTE | 2020-06-01 10:52 | PC.NURSE ---
Patient teaching done for dalton catheter information and handouts given and teaching regarding cleaning was also done. Patient and verbalized understanding of teaching, teach back done w/ catheter cleaning. Patient left facility with a leg bag dalton. Teaching done regarding new medications, and home health infusions will be coming to do infusions. Patient educated about ss/ of stroke and ss of infections, diet, and activity. Patient and verbalized understanding. Patient left facility with all belongings to private vehicle with by his side. Patient follow up appt's made.
--- NOTE | 2020-06-01 11:07 | CM.DPC ---
DCP Cont: Everett from [facility] called back and stated that they can be at patient's home between [id number]. Updated patient and spouse, they are aware. Let them also know that [facility] is ordered, and they are aware of discharge as well. signed updated IMM, as well. P: Patient is discharging home today with [facility] at the home between [id number], and [facility] nursing, P.T, O.T. Mary Soliz RN/Informatics Spec
--- NOTE | 2020-06-01 13:26 | P.DS_ITS ---
History of Present Illness History of Present Illness Chief complaint: Discitis/UTI Narrative: Patient is an 85-year-old white male well known to me with recent admission for MRSA sepsis who presents with acute onset back pain. Patient had been discharged from the hospital was doing well. His white count normalized and he is feeling well. Approximately 2 weeks ago he began having acute low back pain. Did not think he did anything. Had fallen. Had no other changes. He had otherwise felt like the pain was all low back maybe slightly left of ileum area. He had no radiation although sometimes he felt like it went to his buttock and sometimes up to his shoulder. He had no fevers chills or other change. Patient was seen in my clinic and was given Toradol and pain medicine. She x-ray was taken which did not show anything. He was seen in the emergency room and had evaluation with blood cultures and urine culture. Urine grew MRSA. Was recently found. He also had a positive blood culture in the emergency room. Patient was seen had a elevated CRP of 20 normal sed rate white count of 17. CT scan showed L3 changes possible compression fracture possible metastatic disease. Otherwise patient has been not eating well. Has not been drinking a lot. Has been taking Dilaudid pretty frequently for pain. Pain is fine when he is lying but worse when he gets up and moves around. No other changes. Patient has history of congestive heart failure. Recently diagnosed with last admission. Ejection fraction was 25%. Has seen kier hand. He has was started during his hospitalization on beta-luis and lisinopril. Had been feeling well without any shortness of breath or chest pain. Hunting And Fishing Guide feels as if this might be secondary to his infection and will going to give it 3 months on treatment to see if his ejection fraction improves. 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 . Eleventh grade education Discharge Providers Provider Date of admission: 05/28/20 16:31 Discharge Date: 06/01/20 Primary care physician: Fidel Handy MD Consults: 05/29/20 13:16 Consult to Physical Therapy Evaluate & Treat Comment: lumbar support brace, ambulate in cotter, WBAT Physician Instructions: Evaluate and Treat 05/29/20 16:10 Consult to Occupational Therapy Evaluate & Treat Comment: Physician Instructions: Evaluate and treat 05/30/20 11:24 Consult to Home Health Routine Comment: RN to partner with [facility] Reason For Exam: RN/PT/OT at d/c Discharge provider: Fidel Handy MD Summary Hospital Course Discharge Diagnosis: L2-L3 diskitis Methyl is on resistant Staph aureus blood bacteremia Urinary obstruction with acute urinary retention and chronic urinary tract infections Congestive heart failure Dehydration Hypertension Hospital Course: L2-L3 diskitis. Patient was admitted to the hospital began on vancomycin. Orthopedic was consulted and agreed that surgery was not required and that it appeared to be a diskitis and that it would require 6 week of antibiotics. It was felt to be secondary to previous sepsis with MRSA. MRSA being the concerning cause. Patient's white count improve sed rate improved and was feeling markedly better with minimal pain. No fevers and continued to improve. It was set up to have IV outpatient vancomycin and was felt this would work well. He was discharged to home in stable condition. Patient's pain is much improved from admission but will use Tylenol and his pain medicine he has at home Bacteremia. Patient had positive blood cultures and was felt to be 2nd Bessy to a combination of his urine and possibly his diskitis. His treatment was found to be adequate with vancomycin he was improving markedly and will be followed as an outpatient. He will be on prolonged antibiotics due to his diskitis and should be well covered. Urinary obstructions acute urinary retention and positive MRSA in his urine. We clearly think this is the source for his bacteremia although his diskitis could have been an issue. Patient due to his congestive heart failure is not in a position to have surgery which is the ultimate need. Plus two probably not a not candidate until he has is infection completely resolved. But this is a major issue. He was doing well and then had his catheter removed was looking at intermittent catheterization but patient was obstructed and catheter was replaced. He seemed to do well with this. Did have some obstruction on the night before discharge but irrigation seem to fix it and he was draining well on discharge. Otherwise he had been doing well he would like to see Dr. Michael we will set up in the near future. Congestive heart failure. Patient was without symptoms and had been feeling well. Despite hydration in the 1st 2 days of admission he did well without significant issues. He will be followed as an outpatient by kier hand and will continue on his beta-blockers and Bib inhibitors . Dehydration. Patient was noted on admission to be quite dehydrated. He was hydrated gently with IV saline through the 1st 48 hours and then was discontinued. Seems to be maintaining his hydration status and will be followed as an outpatient. Essential hypertension. Overall doing well. Having no major issues will be followed. Exam Vital Signs (past 8 hours): - 06/01/20 08:03 06/01/20 08:04 06/01/20 08:05 Temperature 97.0 F L Pulse Rate 70 71 Respiratory Rate 16 Blood Pressure 148/90 H 148/90 H 148/90 H Pulse Oximetry 95 Oxygen Delivery Method Room Air Oxygen Flow Rate 0 Narrative Exam Narrative: Alert male in no acute distress HEENT exam is unremarkable mucous membranes moist. Neck supple without adenopathy. Lungs are clear heart regular rate and rhythm without murmurs clicks rubs or gallops abdomen is soft positive bowel sounds nontender. Extremities without cyanosis clubbing edema. Back shows no tenderness swelling or erythema neurologic exam is unremarkable Objective Labs Result Diagrams: 05/31/20 05:35 05/31/20 05:35 [facility] Medical History Enlarged prostate History of recurrent UTI (urinary tract infection) Hypertension Pacemaker Social History household members: spouse Smoking Status: Former smoker alcohol intake: current Discharge Assessment & Plan Assessment and Plan Assessment: Diskitis and urinary retention main issues see above plan. Will be followed as an outpatient by me. Discharge Plan Discharge Plan Patient Disposition: Home Health Service Transfer to: [facility] and [facility] Discharge orders & Medications Prescriptions: New vancomycin-water inject (PEG) 1.25 gram/250 mL Piggyback 1,250 mg IV Q12H 44 Days Qty: 90 RF: 0 Continued tamsulosin 0.4 mg capsule 0.4 mg PO DAILY RF: 0 lisinopril 5 mg tablet 5 mg PO DAILY Qty: 30 RF: 0 carvedilol [Coreg] 3.125 mg tablet 3.125 mg PO BID Qty: 60 RF: 0 Discontinued sulfamethoxazole-trimethoprim 800-160 mg Tablet 1 tab PO BID Qty: 20 RF: 0 Follow up/Referrals: Av Michael MD [Physician] - 2 Weeks (patient will be new to him hoping to get in in the next two to four weeks *per dr michael office ([phone]) dr michael will review notes and call patient with a follow up appointment date & time ) Fidel Handy MD [Primary Care Provider] - 06/08/20 2:45 pm (appt:06/08 @ 2:45 w/dr handy ) Diet/Activity/Treatments Diet: Diet as Tolerated Activity: as tolerated and as per home health Catheter: 2-way King Catheter comment: needs to remain in place Skin/Wound/Dressing Care Report to your healthcare provider any signs of infection, such as:: chills, fever, night sweats, increased pain and unusual drainage Visit Report/Discharge Packet Instructions: How to Care for Your King Catheter -- Male, Urinary Tract Infection, Vancomycin Discharge Data Primary Care Provider: Fidel Handy Quality VTE Deep Vein Thrombosis/Pulmonary Embolism Present on Admission: No
== END 2020-06-01 10:55 | disposition home health service (06) | DRG 552 ==
PROVIDERS: Family Medicine; Student in an Organized Health Care Education/Training Program; Admitting Provider Family Medicine; PCP Family Medicine; Referring Provider Family Medicine; Visit Provider Family Medicine
DX: M46.46 Discitis, unspecified, lumbar region (principal); T83.511A Infection and inflammatory reaction due to indwelling urethral catheter, initial encounter; I50.22 Chronic systolic (congestive) heart failure; R78.81 Bacteremia; I11.0 Hypertensive heart disease with heart failure; N40.1 Benign prostatic hyperplasia with lower urinary tract symptoms; E86.0 Dehydration; B95.62 Methicillin resistant Staphylococcus aureus infection as the cause of diseases classified elsewhere; R33.9 Retention of urine, unspecified; I71.4 Abdominal aortic aneurysm, without rupture; Z85.79 Personal history of other malignant neoplasms of lymphoid, hematopoietic and related tissues; Z95.0 Presence of cardiac pacemaker; E78.5 Hyperlipidemia, unspecified; Z95.1 Presence of aortocoronary bypass graft; R00.1 Bradycardia, unspecified; Z87.891 Personal history of nicotine dependence; Z20.822 Contact with and (suspected) exposure to COVID-19
CPT/HCPCS: 36415; 36569; 36592; 51705; 72131; 76706; 80048; 80053; 80202; 81001; 82784; 83690; 83880; 84155; 84165; 85025; 85651; 86140; 86334; 87040; 87077; 87086; 87147; 87150; 87186; 87205; 87635; 96374; 97116; 97162; 97165; 97530; 99232; 99284; C9803; J1650; J2270

== ENCOUNTER 2020-06-01 12:52 | Emergency (ER) | payer MEDICARE, OTHER, SELFPAY ==
[2020-06-01 12:53] VITALS: BP 168/72; PULSE 70; RESP 14; TEMP 36.5; O2SAT 98
[2020-06-01] MEDS: LIDOCAINE 2% (UROJET) 5 ML GEL (13:02)
--- NOTE | 2020-06-01 13:13 | PC.NURSE ---
Removed pt's cathter, no urinary drainage in bag. Noted moderate size clot @ meatus. New catheter placed w/ tiny blood clots noted, urine pink then yellow. Catheter draining well at this time.
--- NOTE | 2020-06-01 13:50 | ED.MALEGU ---
HPI - Male Genitourinary <FRANTZ Gunter - Last Filed: 06/01/20 16:49> General Chief complaint: Urogenital-Male Stated complaint: catheter not draining Time Seen by Provider: 06/01/20 12:53 Source: patient Mode of arrival: Ambulatory Limitations: no limitations History of Present Illness HPI Narrative: 85yo male with a history of MRSA associated UTI, currently on IV antibiotics for this and just discharged from the hospital today, presents to the ED for his catheter not draining. He states it was working fine around 8:00 a.m. this morning, he noticed it stop draining around 10 and felt some pressure in his bladder. Patient states he is arranging follow-up with urology to have his prostate removed, he is currently arranging IV antibiotics for his UTI. Patient denies fevers, chills, nausea, vomiting, diarrhea, abdominal pain, or any other concerns. Related Data Home Medications Medication Instructions Recorded Confirmed tamsulosin 0.4 mg capsule 0.4 mg PO DAILY 09/22/18 05/28/20 Previous Rx's Medication Instructions Recorded carvedilol [Coreg] 3.125 mg PO BID #60 tab 04/26/20 lisinopril 5 mg PO DAILY #30 tab 04/26/20 vancomycin-water inject (PEG) 1,250 mg IV Q12H 44 Days #90 dose 06/01/20 Allergies Allergy/AdvReac Type Severity Reaction Status Date / Time No Known Drug Allergies Allergy Verified 05/25/20 08:54 Review of Systems <FRANTZ Gunter - Last Filed: 06/01/20 16:49> Review of Systems Narrative: REVIEW OF SYSTEMS: GENERAL: Denies fever. HENT: No head trauma. CARDIOVASCULAR: No chest pain, palpitations, or orthopnea. RESPIRATORY: No shortness of breath or cough. GASTROINTESTINAL: Denies abdominal pain. GENITOURINARY: Reports that catheter is not draining, see HPI. MUSCULOSKELETAL: No pain. INTEGUMENTARY: No rash. NEURO: No numbness or tingling. PSYCH: No behavior or mood changes. Patient History <FRANTZ Gunter - Last Filed: 06/01/20 16:49> Medical History Enlarged prostate History of recurrent UTI (urinary tract infection) Hypertension Pacemaker Social History household members: spouse Smoking Status: Former smoker alcohol intake: current Smoking Status: Former smoker alcohol intake frequency: a few times a month Alcohol type: wine Substance Use Type: does not use Exam <FRANTZ Gunter - Last Filed: 06/01/20 16:49> Initial Vital Signs Initial Vital Signs: Vital Signs Temperature 97.7 F 06/01/20 12:53 Pulse Rate 70 06/01/20 12:53 Respiratory Rate 14 06/01/20 12:53 Blood Pressure 168/72 H 06/01/20 12:53 Pulse Oximetry 98 06/01/20 12:53 PHYSICAL EXAMINATION: GENERAL: Awake and alert. HENT: Normocephalic, atraumatic. Hearing intact. Oral mucosa is pink and moist. EYES: Conjunctiva pink, sclera white, no periorbital swelling. CARDIOVASCULAR: S1 and S2 sounds normal. Regular rate and rhythm, no murmurs, clicks, or bruits. No pedal edema. RESPIRATORY: Normal respiratory rate, trachea midline, airway patent. No stridor, nasal flaring or accessory muscle use. Lungs are clear in all archibald without wheeze, rhonchi, or crackles. GASTROINTESTINAL: Bowel sounds normoactive. Abdomen is soft and non-tender. No organomegaly, no palpable masses. GENITALURINARY: No flank tenderness. No bladder distention palpable after catheter was changed. MUSCULOSKELETAL: Normal gait and coordination. Equal tone and mass bilaterally. EXTREMITIES: CMS intact, no pedal edema. SKIN: Warm, dry, soft, appropriate color for ethnicity. No lesions, rashes, or wounds to visualized areas. NEURO: Alert and Oriented X 3. Good coordination. PSYCH: Appropriate affect and mood. <Lorenzo Robles DO - Last Filed: 06/01/20 17:54> Initial Vital Signs Initial Vital Signs: Vital Signs Temperature 97.7 F 06/01/20 12:53 Pulse Rate 70 06/01/20 12:53 Respiratory Rate 14 06/01/20 12:53 Blood Pressure 168/72 H 06/01/20 12:53 Pulse Oximetry 98 06/01/20 12:53 Course <FRANTZ Gunetr - Last Filed: 06/01/20 16:49> Course Course Narrative: Urinary catheter was changed, a small blood clot was noted. Urinary catheter continues to drain over the past 50 minutes. Vital Signs Vital signs: Vital Signs - 8 hr 06/01/20 12:53 Temperature 97.7 F Pulse Rate 70 Respiratory Rate 14 Blood Pressure 168/72 H Pulse Oximetry 98 <Lorenzo Robles DO - Last Filed: 06/01/20 17:54> Vital Signs Vital signs: Vital Signs - 8 hr 06/01/20 12:53 Temperature 97.7 F Pulse Rate 70 Respiratory Rate 14 Blood Pressure 168/72 H Pulse Oximetry 98 MDM - Male Genitourinary <FRANTZ Gunter - Last Filed: 06/01/20 16:49> Medical Records Attestation: I reviewed the patient's medical records. Lab Data Attestation: I reviewed the patient's lab results. [facility] Narrative Medical decision making narrative: History and examination reveal a catheter that was locked with a small blood clot. Urine initially was pink in color and then was clear after new catheter was inserted. Catheter was flushed without any difficulty. Patient did not have any abdominal pain, catheter continued to drain. I suspect this most likely due to the clot that was found. He was encouraged to follow up with Urology continue with IV antibiotics as he he was instructed to do. No signs of distress or acute abdominal infection. Return precautions given for new or worsening symptoms. He agreed to plan of care verbalized understanding. Discharge Plan Departure Patient Disposition: Home Clinical Impression: King catheter problem Qualifiers: Encounter type: initial encounter Qualified Code(s): T83.9XXA - Unspecified complication of genitourinary prosthetic device, implant and graft, initial encounter Instructions: How to Care for Your King Catheter -- Male Activity Restrictions/Additional Instructions: Thank you for entrusting me with your care today. As discussed, your catheter has been replaced. There was a small clot that was most likely causing the blockage. Please follow-up with urology as soon as possible. Continue with IV antibiotics as planned. Return emergency department for any new or worsening symptoms especially pain, draining issues with her catheter, fevers, or any other concerns. Prescriptions: No Action tamsulosin 0.4 mg capsule 0.4 mg PO DAILY RF: 0 lisinopril 5 mg tablet 5 mg PO DAILY Qty: 30 RF: 0 carvedilol [Coreg] 3.125 mg tablet 3.125 mg PO BID Qty: 60 RF: 0 vancomycin-water inject (PEG) 1.25 gram/250 mL Piggyback 1,250 mg IV Q12H 44 Days Qty: 90 RF: 0 Referrals: Fidel Handy MD [Primary Care Provider] - <Lorenzo Robles DO - Last Filed: 06/01/20 17:54> Cosign ED Attending Cosignature Attestation: Dr Robles Co-Sign Statement: I was available for consultation during this patient's emergency department visit. This chart is signed by myself for administrative purposes only. I did not have direct contact with this patient during this visit. They were seen independently by the APC.
== END 2020-06-01 14:26 | disposition home or self-care (01) ==
PROVIDERS: Emergency Provider Nurse Practitioner; PCP Family Medicine
DX: T83.9XXA Unspecified complication of genitourinary prosthetic device, implant and graft, initial encounter (principal); I10 Essential (primary) hypertension; Z95.0 Presence of cardiac pacemaker
CPT/HCPCS: 51701; 51705; 99281; 99283

== ENCOUNTER → 2020-06-03 17:17 | Outpatient (CLI) | payer MEDICARE, OTHER, SELFPAY ==
[2020-05-28 17:19] VITALS: BMI 23.8
--- NOTE | 2020-06-03 17:24 | DI.RAD.S_ITS ---
PROCEDURE: XR KNEE RT 3V INDICATIONS: RT KNEE PAIN TECHNIQUE: 3 views of the knee were acquired. COMPARISON: [facility], , KNEE 1-2 VIEWS RIGHT, 11/27/2007, 10:11. FINDINGS: Bones: Total right knee arthroplasty with no evidence of hardware failure or loosening. No fractures or dislocations. No suspicious bony lesions. Soft tissues: Moderate joint effusion. No suspicious soft tissue calcifications. IMPRESSION: 1. Expected appearance of total right knee arthroplasty. 2. Moderate knee joint effusion. Dictated by: Parmjit Lindsey M.D. on 06/04/2020 at 8:48 Approved by: Parmjit Lindsey M.D. on 06/04/2020 at 8:50
[2020-06-03 18:15] LABS: Erythrocyte Sedimentation Rate 58 MM/HR (0-15)
[2020-06-03 18:22] LABS: Add Manual Diff / Slide Review NO; Basophils Absolute Auto 100 /uL (0-100); Basophils Percent Auto 0.8 % (0-2); Eosinophils Absolute Auto 200 /uL (0-450); Eosinophils Percent Auto 1.5 % (2-4); Hematocrit 42.8 % (41-53); Hemoglobin 13.9 g/dL (13.5-17.5); Lymphocytes Absolute Auto 1100 /uL (1100-4500); Lymphocytes Percent Auto 7.2 % (25-40); Mean Corpuscular HGB Conc 32.5 % (30-36); Mean Corpuscular Hemoglobin 32.1 PG (26-34); Mean Corpuscular Volume 98.7 fL (80-100); Monocytes Absolute Auto 900 /uL (0-900); Monocytes Percent Auto 6.2 % (3-14); Neutrophils Absolute Auto 12900 /uL (1500-7000); Neutrophils Percent Auto 84.3 % (50-75); Platelet Count 390 X10^3/uL (150-400); Red Blood Cell Count 4.33 X10^6/uL (4.5-5.9); Red Cell Distribution Width 14.6 % (11.6-14.8); White Blood Cell Count 15.3 X10^3/uL (4.5-11.0)
[2020-06-03 18:51] LABS: C-Reactive Protein Quant 11.5 mg/dL (<1.0)
== END ==
PROVIDERS: PCP Family Medicine; Referring Provider Family Medicine; Visit Provider Family Medicine
DX: M25.561 Pain in right knee (principal); M25.461 Effusion, right knee
CPT/HCPCS: 36415; 73562; 85025; 85651; 86140; 87070; 87075; 87205

== ENCOUNTER → 2020-06-03 17:29 | Outpatient (ROUT) | payer MEDICARE, OTHER, SELFPAY ==
[2020-05-28 17:19] VITALS: BMI 23.8
== END ==
PROVIDERS: PCP Family Medicine; Visit Provider Family Medicine
DX: M25.561 Pain in right knee (principal); R60.9 Edema, unspecified
CPT/HCPCS: 87070; 87075; 87205

== ENCOUNTER 2020-06-07 12:12 | Emergency (ER) | payer MEDICARE, OTHER, SELFPAY ==
[2020-06-07 12:27] VITALS: BP 131/79; PULSE 80; RESP 16; TEMP 36.7; O2SAT 97; BMI 23.7
--- NOTE | 2020-06-07 12:30 | DI.US.S_ITS ---
PROCEDURE: US PERIPH VENOUS UP EXTREM LT INDICATIONS: EDEMA TECHNIQUE: Real-time imaging, as well as color and pulse Doppler interrogation, was performed of the left upper extremity deep veins from the inferior neck to the antecubital fossa. COMPARISON: [facility], CR, XR CHEST 1V, 06/07/2020, 13:00. FINDINGS: There is occlusive deep venous thrombosis seen within the left brachial vein. The internal jugular vein, visualized portions of the subclavian vein, and axillary veins are free of intraluminal thrombus. Where physically possible, the veins are normally compressible. Color and pulse Doppler demonstrate normal intraluminal flow, with expected phasicity and pulsatility. Additional scanning of the cephalic and basilic veins of the superficial system demonstrate normal compressibility, without thrombus. There is a left-sided pacer seen. IMPRESSION: Positive for deep venous thrombosis involving the left basilic vein. Dictated by: Castillo Corona M.D. on 06/07/2020 at 13:35 Approved by: Castillo Corona M.D. on 06/07/2020 at 13:37
--- NOTE | 2020-06-07 12:36 | ED_ITS ---
HPI - Extremity Problem General Chief complaint: Extremity Injury, Upper Stated complaint: left arm large in 2 times the size Time Seen by Provider: 06/07/20 12:15 Source: patient Mode of arrival: Ambulatory Limitations: no limitations History of Present Illness HPI Narrative: 85-year-old male former smoker with history of hypertension, AAA, bradycardia with pacemaker placement and recent hospitalizations for urosepsis from MRSA, followed by acute new onset back pain with diagnosis of diskitis and ongoing IV Vanco at home presents with his and a chief complaint of painless left upper extremity swelling from shoulder to fingertips over the past few days. He denies any fever or chills. He denies any pain in his arm nor recent injury. He does state that there was a blood draw a relatively recently in that arm but otherwise is free of complaint other than his back pain. He is not dizzy nor weak or lightheaded. He has had no chest pain or shortness of breath. He denies any nausea, vomiting or diarrhea. He recently developed some swelling in his right knee in was evaluated by his primary care provider who performed an arthrocentesis which showed no significant findings. Though still swollen, he has full range of motion which is painless. MD Complaint: extremity swelling Onset (ago): day(s) Location: left Radiation: none Relieving factors: nothing Exacerbating factors: nothing Context: immobilization Related Data Home Medications Medication Instructions Recorded Confirmed tamsulosin 0.4 mg capsule 0.4 mg PO DAILY 09/22/18 05/28/20 Previous Rx's Medication Instructions Recorded carvedilol [Coreg] 3.125 mg PO BID #60 tab 04/26/20 lisinopril 5 mg PO DAILY #30 tab 04/26/20 vancomycin-water inject (PEG) 1,250 mg IV Q12H 44 Days #90 dose 06/01/20 apixaban [Eliquis DVT-PE Treat 30D See Rx Instructions .ROUTE 06/07/20 Start] .COMPLEX #74 ea Allergies Allergy/AdvReac Type Severity Reaction Status Date / Time No Known Drug Allergies Allergy Verified 05/25/20 08:54 Review of Systems Constitutional Constitutional: Denies chills, Denies fatigue, Denies fever(s), Denies frequent falls, Denies lethargy and Denies weakness Eyes Eyes: Denies change in vision, Denies eye discharge, Denies irritation and Denies loss of vision ENT Ears, Nose, Mouth, and Throat: Denies change in voice, Denies dizziness, Denies neck pain, Denies sore throat and Denies throat swelling Cardiovascular Cardiovascular: Denies chest pain, Denies irregular heart rhythm, Denies lightheadedness, Denies palpitations, Denies dyspnea, Denies dyspnea on exertion and Denies orthopnea Respiratory Respiratory: Denies cough, Denies dyspnea, Denies dyspnea on exertion and Denies wheezing Gastrointestinal Gastrointestinal: Denies abdominal pain, Denies change in bowel habits, Denies diarrhea, Denies nausea and Denies vomiting Musculoskeletal Musculoskeletal: Reports back pain, Denies neck pain and Denies numbness Integumentary/Breasts Skin/Breast: Denies pruritus, Denies erythema, Denies rash, Reports skin swelling and Denies wounds Neurologic Neurologic: Denies behavioral changes, Denies confusion, Denies dizziness, Denies frequent falls, Denies loss of vision, Denies numbness and Denies weakness Psychiatric Psychiatric: Denies anxiety, Denies behavioral changes, Denies confusion, Denies depression, Denies homicidal ideation and Denies suicidal ideation Endocrine Endocrine: Denies fatigue, Denies flushing and Denies palpitations Hematologic/Lymphatic Hematologic/Lymphatic: Denies easy bruising Allergic/Immunologic Allergic/Immunologic: Denies urticaria, Denies throat swelling and Denies wheezing Patient History Medical History Enlarged prostate History of recurrent UTI (urinary tract infection) Hypertension Pacemaker Social History household members: spouse Smoking Status: Former smoker alcohol intake: current Smoking Status: Former smoker alcohol intake frequency: a few times a month Alcohol type: wine Substance Use Type: does not use Exam Narrative Exam Narrative: GENERAL: [85] year old patient appears stated age. Well- nourished, well-developed patient, in mild distress, complaining of back pain HEAD: Atraumatic. Normocephalic. EYES: Pupils equal round and reactive. Extraocular motions intact. No scleral icterus. No injection or drainage. ENT: Nose without bleeding, purulent drainage. Throat without erythema, tonsillar hypertrophy or exudate. Airway patent. NECK: Trachea midline. Non tender CARDIOVASCULAR: Regular rate and rhythm without murmurs, gallops, or rubs. RESPIRATORY: Clear to auscultation. Breath sounds equal bilaterally. No wheezes, rales, or rhonchi. GASTROINTESTINAL: Abdomen soft, non-tender, nondistended. EXTREMITIES: Left upper extremity swelling from shoulder to hand, no erythema or pain on palpation. Cap refill less than 2 seconds, radial pulse intact, sensation intact. Right knee with moderate effusion, no erythema, mildly warm to touch but full, painless range of motion BACK: Nontender without deformity or crepitance. No flank tenderness. NEURO: AOx3. SKIN: No rash or erythema of visible areas Initial Vital Signs Initial Vital Signs: Vital Signs Temperature 98.1 F 06/07/20 12:27 Pulse Rate 80 06/07/20 12:27 Respiratory Rate 16 06/07/20 12:27 Blood Pressure 131/79 06/07/20 12:27 Pulse Oximetry 97 06/07/20 12:27 Course Orders Ordered: ED Orders 06/07/20 12:28 Complete Blood Count AUTO DIFF Stat Comprehensive Metabolic Panel Stat Magnesium Stat Troponin & CK Cardiac Panel Stat 06/07/20 12:30 US periph venous up extrem lt Stat 06/07/20 12:57 XR chest 1V Stat 06/07/20 13:26 Urine Culture Stat Urine Microscopic Stat Discontinued Medications Enoxaparin Sodium (Enoxaparin 100 Mg/Ml Syringe) 85 mg 1 mg/kg (85 mg) SUBCUT NOW ONE Stop: 06/07/20 14:13 Last Admin: 06/07/20 14:25 Dose: 85 mg Documented by: ANNE-MARIE Hydromorphone HCl (Hydromorphone 0.5 Mg Inj) 0.5 mg IV NOW ONE Stop: 06/07/20 12:26 Last Admin: 06/07/20 13:03 Dose: 0.5 mg Documented by: ANNE-MARIE Vital Signs Vital signs: Vital Signs - 8 hr 06/07/20 12:27 06/07/20 13:00 06/07/20 13:22 Temperature 98.1 F Pulse Rate 80 69 72 Respiratory Rate 16 19 Blood Pressure 131/79 157/74 H 153/73 H Pulse Oximetry 97 99 100 06/07/20 13:30 06/07/20 13:40 06/07/20 14:00 Temperature Pulse Rate 72 70 70 Respiratory Rate 17 19 16 Blood Pressure 151/74 H 158/91 H 151/74 H Pulse Oximetry 99 99 99 MDM - Extremity (Nontraumatic) Lab Data Result diagrams: 06/07/20 12:28 06/07/20 12:28 Labs: Lab Results 06/07/20 06/07/20 06/07/20 Range/Units 12:28 12:28 12:28 WBC 12.8 H (4.5-11.0) X10^3/uL RBC 4.33 L (4.5-5.9) X10^6/uL Hgb 14.2 (13.5-17.5) g/dL Hct 42.4 (41-53) % MCV 97.9 (80-100) fL MCH 32.8 (26-34) PG MCHC 33.5 (30-36) % RDW 14.7 (11.6-14.8) % Plt Count 472 H (150-400) X10^3/uL Neut % (Auto) 79.8 H (50-75) % Lymph % (Auto) 7.1 L (25-40) % Will % (Auto) 9.1 (3-14) % Eos % (Auto) 1.2 L (2-4) % Baso % (Auto) 2.8 H (0-2) % Neut # (Auto) 83908 H (7445-0637) /uL Lymph # (Auto) 900 L (6900-7921) /uL Will # (Auto) 1200 H (0-900) /uL Eos # (Auto) 200 (0-450) /uL Baso # (Auto) 400 H (0-100) /uL Sodium 134 L (137-145) mmol/L Potassium 4.0 (3.4-5.1) mmol/L Chloride 100 (98-107) mmol/L Carbon Dioxide 30 (22-32) mmol/L BUN 12 (9-20) mg/dL Creatinine 0.71 (0.66-1.25) mg/dL Estimated GFR > 60.0 (>60) mL/min BUN/Creatinine Ratio 16.9 (6-22) Glucose 118 H (80-110) mg/dL Calcium 8.1 L (8.4-10.2) mg/dL Magnesium 1.7 (1.6-2.3) mg/dL Total Bilirubin 0.8 (0.2-1.3) mg/dL AST 22 (17-59) IU/L ALT 18 (<50) IU/L Alkaline Phosphatase 342 H (38-126) U/L Total Creatine Kinase < 20 L (55-170) U/L CK-MB (CK-2) TNP CK-MB (CK-2) Rel Index TNP Troponin I < 0.012 (0.01-0.034) ng/mL Total Protein 6.9 (6.3-8.2) g/dL Albumin 3.2 L (3.5-5.0) g/dL Globulin 3.7 (1.7-4.1) g/dL Albumin/Globulin Ratio 0.9 L (1.0-2.8) Urine RBC (0-5/HPF) Urine WBC (0-5/HPF) Urine Bacteria (None) Urine Yeast (None) Ur Culture Indicated? 06/07/20 Range/Units 13:26 WBC (4.5-11.0) X10^3/uL RBC (4.5-5.9) X10^6/uL Hgb (13.5-17.5) g/dL Hct (41-53) % MCV (80-100) fL MCH (26-34) PG MCHC (30-36) % RDW (11.6-14.8) % Plt Count (150-400) X10^3/uL Neut % (Auto) (50-75) % Lymph % (Auto) (25-40) % Will % (Auto) (3-14) % Eos % (Auto) (2-4) % Baso % (Auto) (0-2) % Neut # (Auto) (1280-4088) /uL Lymph # (Auto) (3453-0697) /uL Will # (Auto) (0-900) /uL Eos # (Auto) (0-450) /uL Baso # (Auto) (0-100) /uL Sodium (137-145) mmol/L Potassium (3.4-5.1) mmol/L Chloride (98-107) mmol/L Carbon Dioxide (22-32) mmol/L BUN (9-20) mg/dL Creatinine (0.66-1.25) mg/dL Estimated GFR (>60) mL/min BUN/Creatinine Ratio (6-22) Glucose (80-110) mg/dL Calcium (8.4-10.2) mg/dL Magnesium (1.6-2.3) mg/dL Total Bilirubin (0.2-1.3) mg/dL AST (17-59) IU/L ALT (<50) IU/L Alkaline Phosphatase (38-126) U/L Total Creatine Kinase (55-170) U/L CK-MB (CK-2) CK-MB (CK-2) Rel Index Troponin I (0.01-0.034) ng/mL Total Protein (6.3-8.2) g/dL Albumin (3.5-5.0) g/dL Globulin (1.7-4.1) g/dL Albumin/Globulin Ratio (1.0-2.8) Urine RBC 5-10/hpf H (0-5/HPF) Urine WBC 10-30/hpf H (0-5/HPF) Urine Bacteria Many (>30) H (None) Urine Yeast 30-100/hpf H (None) Ur Culture Indicated? Specimen cultured Urine Dip Bedside Urine Glucose Negative Bedside Urine Bilirubin - Negative Bedside Urine Ketone - Negative Urine Specific [place] 1.025 Bedside Urine Occult Blood ++ Bedside Urine pH 6.0 Bedside Urine Protein +/- 15 Bedside Urine Urobilinogen - Negative Bedside Urine Nitrite - Negative Bedside Urine Leukocytes - Negative Esterase Imaging Data Chest x-ray: Radiologist's Impression: [address] [id number] ReportSigned Patient: Josesito Whyte EMR#: [id number]: [id number]:[id number]/Sex: 85 / MDate of Service: 06/07/20Loc: EDAccession Number: [id number] Procedure: XR chest 1V Ordering Provider: Kervin Macedo D.O. PROCEDURE: XR CHEST 1V INDICATIONS: chest pain TECHNIQUE: One view of the chest was acquired. COMPARISON: [facility], , XR CHEST FOR PICC 1V, 05/29/2020, 16:12. FINDINGS: Surgical changes and devices: Left-sided cardiac pacer device is unchanged in positioning. Lungs and pleura: No pneumothorax. Diffuse interstitial prominence and suggestion of mild central vascular congestion. Small bilateral pleural effusions larger on the right left. Mediastinum: Mediastinal contours appear stable. Heart size is enlarged. Bones and chest wall: No suspicious bony lesions. Overlying soft tissues appear unremarkable. IMPRESSION: Cardiomegaly with findings suggestive of early/mild congestive heart failure or pulmonary edema. Dictated by: Mamadou Jack M.D. on 06/07/2020 at 13:21 Approved by: Mamadou Jack M.D. on 06/07/2020 at 13:23 Discharge Plan Departure Patient Disposition: Home Clinical Impression: DVT (deep venous thrombosis) Qualifiers: DVT location: upper extremity Affected thrombotic vein of extremity: brachial Chronicity: acute Laterality: left Qualified Code(s): I82.622 - Acute embolism and thrombosis of deep veins of left upper extremity Instructions: DI for Deep Vein Thrombosis Activity Restrictions/Additional Instructions: *You have been diagnosed with [left arm swelling due to DVT (clot)] *What to do: *Take medications as directed *Follow up with your primary care provider tomorrow as planned, we have been in contact and he knows your diagnosis *Return to ER if you should have any new, worsening or concerning symptoms Prescriptions: New Eliquis DVT-PE Treat 30D Start 5 mg (74 tabs) tablets,dose pack See Rx Instructions .ROUTE .COMPLEX Qty: 74 RF: 0 No Action tamsulosin 0.4 mg capsule 0.4 mg PO DAILY RF: 0 lisinopril 5 mg tablet 5 mg PO DAILY Qty: 30 RF: 0 carvedilol [Coreg] 3.125 mg tablet 3.125 mg PO BID Qty: 60 RF: 0 vancomycin-water inject (PEG) 1.25 gram/250 mL Piggyback 1,250 mg IV Q12H 44 Days Qty: 90 RF: 0 Referrals: Fidel Handy MD [Primary Care Provider] -
[2020-06-07 12:42] LABS: Add Manual Diff / Slide Review NO; Basophils Absolute Auto 400 /uL (0-100); Basophils Percent Auto 2.8 % (0-2); Eosinophils Absolute Auto 200 /uL (0-450); Eosinophils Percent Auto 1.2 % (2-4); Hematocrit 42.4 % (41-53); Hemoglobin 14.2 g/dL (13.5-17.5); Lymphocytes Absolute Auto 900 /uL (1100-4500); Lymphocytes Percent Auto 7.1 % (25-40); Mean Corpuscular HGB Conc 33.5 % (30-36); Mean Corpuscular Hemoglobin 32.8 PG (26-34); Mean Corpuscular Volume 97.9 fL (80-100); Monocytes Absolute Auto 1200 /uL (0-900); Monocytes Percent Auto 9.1 % (3-14); Neutrophils Absolute Auto 10200 /uL (1500-7000); Neutrophils Percent Auto 79.8 % (50-75); Platelet Count 472 X10^3/uL (150-400); Red Blood Cell Count 4.33 X10^6/uL (4.5-5.9); Red Cell Distribution Width 14.7 % (11.6-14.8); White Blood Cell Count 12.8 X10^3/uL (4.5-11.0)
[2020-06-07 12:53] LABS: Alanine Aminotransferase 18 IU/L (<50); Albumin 3.2 g/dL (3.5-5.0); Albumin Globulin Ratio 0.9 (1.0-2.8); Alkaline Phosphatase 342 U/L (38-126); Aspartate Aminotransferase 22 IU/L (17-59); BUN Creatinine Ratio 16.9 (6-22); Bilirubin Total 0.8 mg/dL (0.2-1.3); Blood Urea Nitrogen 12 mg/dL (9-20); Calcium 8.1 mg/dL (8.4-10.2); Carbon Dioxide 30 mmol/L (22-32); Chloride 100 mmol/L (98-107); Estimated Glomerular Filt Rate > 60.0 mL/min (>60); Globulin 3.7 g/dL (1.7-4.1); Glucose 118 mg/dL (80-110); HEMOLYSIS 16 (0-50); Sodium 134 mmol/L (137-145); Total Protein 6.9 g/dL (6.3-8.2)
--- NOTE | 2020-06-07 12:57 | DI.RAD.S_ITS ---
PROCEDURE: XR CHEST 1V INDICATIONS: chest pain TECHNIQUE: One view of the chest was acquired. COMPARISON: [facility], CR, XR CHEST FOR PICC 1V, 05/29/2020, 16:12. FINDINGS: Surgical changes and devices: Left-sided cardiac pacer device is unchanged in positioning. Lungs and pleura: No pneumothorax. Diffuse interstitial prominence and suggestion of mild central vascular congestion. Small bilateral pleural effusions larger on the right left. Mediastinum: Mediastinal contours appear stable. Heart size is enlarged. Bones and chest wall: No suspicious bony lesions. Overlying soft tissues appear unremarkable. IMPRESSION: Cardiomegaly with findings suggestive of early/mild congestive heart failure or pulmonary edema. Dictated by: Mamadou Jakc M.D. on 06/07/2020 at 13:21 Approved by: Mamadou Jack M.D. on 06/07/2020 at 13:23
[2020-06-07 13:00] VITALS: BP 157/74; PULSE 69; RESP 19; O2SAT 99
[2020-06-07] MEDS: HYDROMORPHONE 0.5 MG INJ IV (13:03)
[2020-06-07 13:06] LABS: Creatine Kinase < 20 U/L (55-170); Magnesium 1.7 mg/dL (1.6-2.3)
[2020-06-07 13:18] LABS: Troponin I < 0.012 ng/mL (0.01-0.034)
[2020-06-07 13:22] VITALS: BP 153/73; PULSE 72; O2SAT 100
[2020-06-07 13:30] VITALS: BP 151/74; PULSE 72; RESP 17; O2SAT 99
[2020-06-07 13:40] VITALS: BP 158/91; PULSE 70; RESP 19; O2SAT 99
--- NOTE | 2020-06-07 13:47 | PC.NURSE ---
Patient originally came into the ed with complaints of a swollen arm. On arrival he was complaining of low back pain. He was placed on the radiation monitor because he said he was not feeling. The monitor was reporting vtach intermittently. He had a papable pulse and was not feeling lightheaded dizzy or SOB but continued to complain of back pain. He was medicated for pain and began to report that his pain decreased. The monitor continued to report vtach 30 minutes after his pain medication was administered. This time his came out and said that he was reporting feeling unwell. Provider notified and responded. The patient was hooked up to a defibrillator but did not need any other interventions at this time per provider.
[2020-06-07 14:00] VITALS: BP 151/74; PULSE 70; RESP 16; O2SAT 99
[2020-06-07 14:19] LABS: Bacteria Urine Many (>30); Culture Indicated Urine Specimen Cultured; RBC Urine 5-10/HPF (0-5/HPF); WBC Urine 10-30/HPF (0-5/HPF)
[2020-06-07] MEDS: ENOXAPARIN 100 MG/ML SYRINGE 85 MG SUBCUT (14:25)
== END 2020-06-07 14:54 | disposition home or self-care (01) ==
PROVIDERS: Emergency Provider Emergency Medicine; PCP Family Medicine
DX: I82.622 Acute embolism and thrombosis of deep veins of left upper extremity (principal); R07.9 Chest pain, unspecified; I10 Essential (primary) hypertension; Z95.0 Presence of cardiac pacemaker
CPT/HCPCS: 71045; 80053; 81003; 81015; 82550; 83735; 84484; 85025; 87077; 87086; 93005; 93010; 93971; 96372; 96374; 99283; 99284; J1170; J1642; J1650

== ENCOUNTER → 2020-06-09 13:34 | Outpatient (CLI) | payer MEDICARE, OTHER, SELFPAY ==
[2020-05-28 17:19] VITALS: BMI 23.8
--- NOTE | 2020-06-09 13:36 | DI.ECHO.S_ITS ---
[facility]---------+ [facility] +---------+ : : [address] [place] : : : : [id number] : : : : Phone: [phone]---------+ Echocardiogram Report + + :Name: SARI MATTSON Study Date: 06/09/2020 Height: 74 in : :[facility] ReadingLocation: Weight: 190 lb : : Gender: Male BSA: 2.1 m2 : :: 1935 Age: 85 yrs BP: 150/71 mmHg: :Reason For Study: ACUTE SYSTOLIC HEART FAILURE : :Ordering Physician: ALEXA, : :NATALY Performed By: Hilda Morrison : :Referring: NATALY LIU : + + Interpretation Summary The left ventricle is severely dilated. This is Mild increased compared to the previous study. The ejection fraction is estimated to be 15-20%. Left ventricular function has slightly worsened compared to the previous exam. There is inferior wall akinesis. There is a significant dyssynchronous contraction pattern due to the paced rhythm. There is severe global hypokinesis of the left ventricle. Compared to the prior exam, the left ventricular wall motion has not changed. The right ventricle is normal in size and function. There is a pacemaker lead in the right ventricle. There is moderate aortic regurgitation. Compared to the prior echo study, there has been no change in the severity of aortic regurgitation. The IVC is of normal diameter and collapses greater than 50% with a sniff. This suggests a low right atrial pressure of 3 mm Hg. Procedure: A two-dimensional transthoracic echocardiogram with color flow and Doppler was performed. The study quality was technically adequate. Comparison is made with the echocardiogram of 05/11/2020. The patient has a paced rhythm. The heart rate ranged between 68-87 bpm during the study. Left Ventricle: The estimated left ventricular end diastolic volume is 241 ml. The left ventricle is severely dilated. This is Mild increased compared to the previous study. There is no thrombus. The ejection fraction is estimated to be 15-20%. Left ventricular function has slightly worsened compared to the previous exam. There is inferior wall akinesis. There is a significant dyssynchronous contraction pattern due to the paced rhythm. There is severe global hypokinesis of the left ventricle. Compared to the prior exam, the left ventricular wall motion has not changed. Diastolic function could not be accurately assessed due to paced rhythm. Right Ventricle: There is a pacemaker lead in the right ventricle. The right ventricle is normal in size and function. Atria: The left atrium is severely dilated. The left atrium has significantly increased in size since the prior echo exam. There is a catheter/pacemaker lead seen in the right atrium. Right atrial size is normal. There is no Doppler evidence for an interatrial shunt. Mitral Valve: The mitral valve leaflets are slightly calcified. There is mild mitral annular calcification. There is mild mitral regurgitation. Aortic Valve: The aortic valve is trileaflet. The aortic valve opens well. The aortic valve is slightly calcified. There is no aortic valve stenosis. There is moderate aortic regurgitation. Compared to the prior echo study, there has been no change in the severity of aortic regurgitation. Tricuspid Valve: The tricuspid valve is normal. There is mild tricuspid regurgitation. Pulmonary artery pressures cannot be estimated because of the lack of a measurable TR jet velocity but the IVC suggests a CVP of around 3 mmHg. Pulmonic Valve: The pulmonic valve is not well visualized. There is no pulmonic valvular regurgitation. Great Vessels: The aortic root is normal size. The ascending aorta is at the upper limits of normal in size. The IVC is of normal diameter and collapses greater than 50% with a sniff. This suggests a low right atrial pressure of 3 mm Hg. Pericardium/ Pleura There is no pericardial effusion. There is no pleural effusion. MMode/2D Measurements & Calculations LVIDd: 6.6 cm LVOT diam: 2.2 cm LVIDs: 5.8 cm Ao root diam: 3.5 cm FS: 11.3 % asc Aorta Diam: 3.9 cm EPSS: 2.1 cm Ao Arch Diam (Prox Trans): 3.3 cm IVSd: 1.5 cm LVPWd: 1.3 cm LV webster. diameter/BSA (cm/m^2): 3.1 LV sys. diameter/BSA (cm/m^2): 2.7 LA A2 area: 35.8 cm2 RA long axis: 5.6 cm LA A4 area: 21.1 cm2 RA area: 20.6 cm2 LA length (vol): 5.2 cm RA vol: 64.2 ml LA vol: 122.8 ml RA : 30.2 ml/m2 LA vol index: 57.8 ml/m2 RVD1 (basal): 3.4 cm TAPSE: 1.9 cm Doppler Measurements & Calculations Ao V2 max: 164.3 cm/sec LVOT Max Gómez: 87.9 cm/sec Ao V2 mean: 116.1 cm/sec LV V1 max P.1 mmHg Ao max P.8 mmHg LV V1 VTI: 18.0 cm Ao mean P.0 mmHg ALEX(I,D): 2.1 cm2 Ao V2 VTI: 32.3 cm ALEX(V,D): 2.0 cm2 sev ratio: 0.56 ALEX indexed to BSA (cm^2/m^2): 0.97 AI P1/2t: 618.5 msec AI dec slope: 196.9 cm/sec2 MV E max gómez: 92.9 cm/sec PA V2 max: 73.0 cm/sec MV A max gómez: 0.96 cm/sec PA V2 mean: 47.2 cm/sec MV E/A: 97.1 PA mean P.1 mmHg Med Peak E' Gómez: 7.9 cm/sec PA pr(Accel): 34.5 mmHg E/E' med: 11.8 Lat Peak E' Gómez: 13.9 cm/sec E/E' lat: 6.7 E/e' average: 9.2 MV dec time: 0.09 sec SV(LVOT): 66.4 ml Reading Physician:05:03 PM
== END ==
PROVIDERS: PCP Family Medicine; Referring Provider Family Medicine; Visit Provider Family Medicine
DX: I08.3 Combined rheumatic disorders of mitral, aortic and tricuspid valves (principal); I50.21 Acute systolic (congestive) heart failure; Z95.0 Presence of cardiac pacemaker
CPT/HCPCS: 93306

== ENCOUNTER 2020-06-19 16:20 | Emergency (ER) | payer MEDICARE, OTHER, SELFPAY ==
[2020-06-19] VITALS (24 sets, daily range): BP systolic 132–194; BP diastolic 61–109; PULSE 68–71; RESP 13–34; TEMP 36.9; O2SAT 60–99
[2020-06-19 16:55] LABS: Appearance Urine UA CLOUDY; Bilirubin Urine UA NEGATIVE (NEGATIVE); Color Urine UA YELLOW; Glucose Urine UA TRACE g/dL (Negative); Ketones Urine UA NEGATIVE (NEGATIVE); Leukocyte Esterase Urine UA 1+ (NEGATIVE); Nitrite Urine UA POSITIVE (Negative); Occult Blood Urine UA 3+ (Negative); Protein Urine UA 1+ (Negative); Urobilinogen Urine UA 0.2 E.U./dL (0.2); pH Urine UA 5.5 (4.5-8.0)
--- NOTE | 2020-06-19 17:07 | DI.RAD.S_ITS ---
PROCEDURE: XR CHEST 1V INDICATIONS: suspected sepsis TECHNIQUE: One view of the chest was acquired. COMPARISON: [facility], CR, XR CHEST 1V, 06/07/2020, 13:00. FINDINGS: Surgical changes and devices: Dual lead left-sided pacemaker. Right-sided PICC line. Overlying monitoring leads. Lungs and pleura: Lungs demonstrate mild diffuse interstitial thickening without focal consolidation. No pleural effusions or pneumothorax. Mediastinum: Mediastinal contours appear normal. Heart size is enlarged, stable. Bones and chest wall: No suspicious bony lesions. Overlying soft tissues appear unremarkable. IMPRESSION: 1. Slight diffuse interstitial thickening is nonspecific, likely accentuated by technique. Interstitial pneumonitis is not excluded. 2. Right-sided PICC line is present. Dictated by: Jannette Dumont M.D. on 06/19/2020 at 18:11 Approved by: Jannette Dumont M.D. on 06/19/2020 at 18:13
[2020-06-19 17:10] LABS: RBC Urine 5-10/HPF (0-5/HPF); WBC Urine 5-10/HPF (0-5/HPF)
[2020-06-19 17:11] LABS: Amorphous Sediment Urine 2+; Bacteria Urine Moderate (10-30); Culture Indicated Urine Specimen Cultured
[2020-06-19 17:23] LABS: Add Manual Diff / Slide Review NO; Basophils Absolute Auto 100 /uL (0-100); Basophils Percent Auto 0.7 % (0-2); Eosinophils Absolute Auto 100 /uL (0-450); Eosinophils Percent Auto 0.8 % (2-4); Hematocrit 36.4 % (41-53); Hemoglobin 12.2 g/dL (13.5-17.5); Lymphocytes Absolute Auto 900 /uL (1100-4500); Lymphocytes Percent Auto 5.6 % (25-40); Mean Corpuscular HGB Conc 33.5 % (30-36); Mean Corpuscular Hemoglobin 32.5 PG (26-34); Mean Corpuscular Volume 97.1 fL (80-100); Monocytes Absolute Auto 1500 /uL (0-900); Monocytes Percent Auto 9.6 % (3-14); Neutrophils Absolute Auto 12800 /uL (1500-7000); Neutrophils Percent Auto 83.3 % (50-75); Platelet Count 567 X10^3/uL (150-400); Red Blood Cell Count 3.76 X10^6/uL (4.5-5.9); Red Cell Distribution Width 14.5 % (11.6-14.8); White Blood Cell Count 15.4 X10^3/uL (4.5-11.0)
[2020-06-19 17:30] LABS: Lactate (Lactic Acid) 0.9 mmol/L (0.7-2.1)
[2020-06-19 17:31] LABS: Alanine Aminotransferase 12 IU/L (<50); Albumin 2.9 g/dL (3.5-5.0); Albumin Globulin Ratio 0.8 (1.0-2.8); Alkaline Phosphatase 214 U/L (38-126); Aspartate Aminotransferase 23 IU/L (17-59); BUN Creatinine Ratio 18.9 (6-22); Bilirubin Total 0.6 mg/dL (0.2-1.3); Blood Urea Nitrogen 14 mg/dL (9-20); Calcium 8.3 mg/dL (8.4-10.2); Carbon Dioxide 33 mmol/L (22-32); Chloride 94 mmol/L (98-107); Estimated Glomerular Filt Rate > 60.0 mL/min (>60); Globulin 3.6 g/dL (1.7-4.1); Glucose 120 mg/dL (80-110); HEMOLYSIS < 15 (0-50); Lipase 27 U/L (23-300); Potassium 3.9 mmol/L (3.4-5.1); Sodium 130 mmol/L (137-145); Total Protein 6.5 g/dL (6.3-8.2)
[2020-06-19 17:33] LABS: INR 1.8 (0.9-1.3); Prothrombin Time 20.6 SECONDS (10.1-12.7)
[2020-06-19 17:36] LABS: PTT Partial Thromboplastin Tim 40 SECONDS (26.4-36.2)
--- NOTE | 2020-06-19 17:39 | DI.CT.S_ITS ---
PROCEDURE: CT HEAD/BRAIN WO CON INDICATIONS: Visual hallucinations TECHNIQUE: Noncontrast 4.5 mm thick angled axial sections acquired from the foramen magnum to the vertex, with coronal and sagittal reformats. For radiation dose reduction, the following was used: automated exposure control, adjustment of mA and/or kV according to patient size. COMPARISON: [facility], CT, CT HEAD/BRAIN WO CON, 04/22/2020, 7:45. FINDINGS: Image quality: Excellent. CSF spaces: Basal cisterns are patent. No extra-axial fluid collections. The ventricles are symmetric in size and shape. Brain: No intracranial bleeds or masses. There is cerebral volume loss for age, with resultant ventricular and sulcal prominence. There are moderate periventricular and deep white matter chronic small vessel ischemic changes. There is intracranial internal carotid artery atherosclerosis. Skull and face: Calvarium and visualized facial bones appear intact, without suspicious lesions. Sinuses: Visualized sinuses and mastoids are clear. IMPRESSION: 1. No CT evidence of acute intracranial process. 2. Age-appropriate cerebral cortical volume loss and chronic microvascular ischemic changes. Dictated by: Jannette Dumont M.D. on 06/19/2020 at 18:24 Approved by: Jannette Dumont M.D. on 06/19/2020 at 18:28
[2020-06-19 17:48] LABS: Procalcitonin 0.12 ng/mL (<0.5)
[2020-06-19] MEDS: CEFTRIAXONE 1 GM/50 ML FROZ.PIGGY IV (18:17)
--- NOTE | 2020-06-19 18:37 | ED.AMS ---
HPI - Altered Mental Status General Chief Complaint: Altered Mental Status Stated Complaint: Visual hallucinations Time Seen by Provider: 06/19/20 18:37 Source: family and EMS Mode of arrival: EMS Limitations: no limitations History of Present Illness HPI narrative: 85-year-old male comes in with complaint of visual hallucinations. His states that he thought the TV with a building, he thought he was eating when he was not. She states Monday night they were concerned for a possible TIA. She also noted he was twitching irregularly at home his night back. He was discharged from [facility] in [place] on Monday the 16 of June. He had been admitted for osteomyelitis, he had a washout of his knee, he also has known osteomyelitis in the L2-3 region according to his . He has a DVT in his upper extremity. Patient is receiving vancomycin IV nightly they did change his apixaban and Coreg any supposed to get 5 mg this evening of apixaban. She states he has not had any fevers. No chest pain, no shortness of breath, no nausea or vomiting. He has been eating but less than typical. She has noticed his abdomen seems hole, he has not had a bowel movement since Monday. He has a chronic indwelling catheter since March was last changed on the 02 of June. No rashes or skin changes. He ambulates with a walker but with a shuffling gait. She she nor her have appreciated any new weakness or difficulty with movement on either extremity. Patient's the patient denies any hallucinations. He states it was a mistake to tell his about the episode yesterday. Related Data Home Medications Medication Instructions Recorded Confirmed tamsulosin 0.4 mg capsule 0.4 mg PO DAILY 09/22/18 05/28/20 Previous Rx's Medication Instructions Recorded carvedilol [Coreg] 3.125 mg PO BID #60 tab 04/26/20 lisinopril 5 mg PO DAILY #30 tab 04/26/20 vancomycin-water inject (PEG) 1,250 mg IV Q12H 44 Days #90 dose 06/01/20 apixaban [Eliquis DVT-PE Treat 30D See Rx Instructions .ROUTE 06/07/20 Start] .COMPLEX #74 ea Allergies Allergy/AdvReac Type Severity Reaction Status Date / Time No Known Drug Allergies Allergy Verified 05/25/20 08:54 Review of Systems Review of Systems ROS Unobtainable: All systems reviewed & are unremarkable except as noted in HPI and below Patient History Medical History Enlarged prostate History of recurrent UTI (urinary tract infection) Hypertension Pacemaker Social History household members: spouse Smoking Status: Former smoker alcohol intake: current Smoking Status: Former smoker alcohol intake frequency: a few times a month Alcohol type: wine Substance Use Type: does not use Exam Narrative Exam Narrative: GEN: Elderly appearing male, alert, patient appears in mild distress. HEENT: Atraumatic, pupils are equal round reactive to light, extraocular movements are intact, nares are clear, TMs are clear with no fluid, there is no conjunctival pallor. HEART: Regular rate and rhythm without murmur, clicks, rubs. Pulses are equal in upper and lower extremities LUNGS:Lungs clear to auscultation, no wheezes, rales, crackles, chest moves symmetrically, no tachypnea accessory muscle use. ABD:bowel sounds normal, soft, non-tender, no patient has indwelling Dalton catheter MSCL: Non-tender, no muscle atrophy, full range of motion NEURO:CN 2-12 intact, sensation normal SKIN: no rash, no erythema, no vesicles or other changes noted. Initial Vital Signs Initial Vital Signs: Vital Signs Pulse Rate 70 06/19/20 16:26 Pulse Oximetry 98 06/19/20 16:26 Scores GCS [place] coma scale eye opening: Spontaneous Anil coma scale verbal response: Confused Anil coma scale motor response: Obey commands Anil coma scale total score: 14 Course Orders Ordered: ED Orders 06/19/20 19:15 COVID19 Stat Discontinued Medications Apixaban (Apixaban 5 Mg Tablet) 5 mg PO NOW ONE Stop: 06/19/20 18:40 Last Admin: 06/19/20 19:03 Dose: 5 mg Documented by: PAWEL Hydromorphone HCl (Hydromorphone 1 Mg Inj) 1 mg IV NOW ONE Stop: 06/19/20 18:40 Last Admin: 06/19/20 19:03 Dose: 1 mg Documented by: PAWEL Hydromorphone HCl (Hydromorphone 2 Mg Tablet) 2 mg PO NOW ONE Stop: 06/19/20 21:56 Ceftriaxone Sodium/Dextrose (Rocephin) 1 gm in 50 mls @ 100 mls/hr IV NOW ONE Stop: 06/19/20 18:07 Last Infusion: 06/19/20 18:52 Dose: 100 mls/hr Documented by: Admin: 06/19/20 18:17 Dose: 100 mls/hr Documented by: CVANCE Vancomycin HCl (Vancomycin) 1,250 mg in 250 mls @ 250 mls/hr IV NOW ONE Stop: 06/19/20 19:39 Last Infusion: 06/19/20 20:10 Dose: 250 mls/hr Documented by: Admin: 06/19/20 19:03 Dose: 250 mls/hr Documented by: CVANCE Reevaluation(s) Time: 20:28 Consultations Consultation #1: Dr. Macdonald reviewed she defers and feels he needs additional work up and specialities including id, Cardiology and possibly neurology. Time: 20:28 Consultation #2: Dr. Ballard at [place] accepts for transfer. Discussed suspect UTI with indwelling dalton catheter but with patients multiple medical issues and MRSA discitis and wash out of knee admitting service at [facility] feels patient would benefit from subspecialty care such as ID. Time: 20:57 Vital Signs Vital signs: Vital Signs - 8 hr 06/19/20 20:00 06/19/20 20:21 06/19/20 20:30 Pulse Rate 69 69 68 Respiratory Rate 23 16 Blood Pressure 155/76 H 155/76 H Pulse Oximetry 94 99 06/19/20 20:41 06/19/20 20:45 06/19/20 21:00 Pulse Rate 70 69 69 Respiratory Rate 13 16 Blood Pressure 150/86 H 160/84 H 132/61 Pulse Oximetry 96 95 06/19/20 21:15 06/19/20 21:30 06/19/20 21:44 Pulse Rate 69 69 70 Respiratory Rate 23 25 H 16 Blood Pressure 156/77 H 153/83 H 153/83 H Pulse Oximetry 96 06/19/20 21:45 06/19/20 22:00 Pulse Rate 69 69 Respiratory Rate 13 19 Blood Pressure 154/80 H 150/76 H Pulse Oximetry 96 97 MDM - Altered Mental Status Lab Data Attestation: I reviewed the patient's lab results. Result diagrams: 06/19/20 17:07 06/19/20 17:07 Labs: Lab Results 06/19/20 06/19/20 06/19/20 Range/Units 16:28 16:50 17:07 WBC 15.4 H (4.5-11.0) X10^3/uL RBC 3.76 L (4.5-5.9) X10^6/uL Hgb 12.2 L (13.5-17.5) g/dL Hct 36.4 L (41-53) % MCV 97.1 (80-100) fL MCH 32.5 (26-34) PG MCHC 33.5 (30-36) % RDW 14.5 (11.6-14.8) % Plt Count 567 H (150-400) X10^3/uL Neut % (Auto) 83.3 H (50-75) % Lymph % (Auto) 5.6 L (25-40) % [place] % (Auto) 9.6 (3-14) % Eos % (Auto) 0.8 L (2-4) % Baso % (Auto) 0.7 (0-2) % Neut # (Auto) 08871 H (0412-7784) /uL Lymph # (Auto) 900 L (5820-5554) /uL [place] # (Auto) 1500 H (0-900) /uL Eos # (Auto) 100 (0-450) /uL Baso # (Auto) 100 (0-100) /uL PT (10.1-12.7) SECONDS INR (0.9-1.3) APTT (26.4-36.2) SECONDS Sodium (137-145) mmol/L Potassium (3.4-5.1) mmol/L Chloride (98-107) mmol/L Carbon Dioxide (22-32) mmol/L BUN (9-20) mg/dL Creatinine (0.66-1.25) mg/dL Estimated GFR (>60) mL/min BUN/Creatinine Ratio (6-22) Glucose (80-110) mg/dL Lactate (0.7-2.1) mmol/L Calcium (8.4-10.2) mg/dL Total Bilirubin (0.2-1.3) mg/dL AST (17-59) IU/L ALT (<50) IU/L Alkaline Phosphatase (38-126) U/L Total Protein (6.3-8.2) g/dL Albumin (3.5-5.0) g/dL Globulin (1.7-4.1) g/dL Albumin/Globulin Ratio (1.0-2.8) Lipase (23-300) U/L Procalcitonin (<0.5) ng/mL Urine Color Yellow Urine Appearance Cloudy Urine pH 5.5 (4.5-8.0) Ur Specific [place] 1.020 (1.000-1.035) Urine Protein 1+ H (Negative) Urine Glucose (UA) Trace H (Negative) g/dL Urine Ketones Negative (NEGATIVE) Urine Occult Blood 3+ H (Negative) Urine Nitrate Positive (Negative) Urine Bilirubin Negative (NEGATIVE) Urine Urobilinogen 0.2 (0.2) E.U./dL Ur Leukocyte Esterase 1+ H (NEGATIVE) Urine RBC 5-10/hpf H (0-5/HPF) Urine WBC 5-10/hpf H (0-5/HPF) Amorphous Sediment 2+ Urine Bacteria Moderate (10-30) H (None) Ur Culture Indicated? Specimen cultured U Opiates 300ng/mL cut Positive H (Negative) Ur Oxycodone Screen Negative (Negative) Urine Methadone Screen Negative (Negative) Ur Barbiturates Screen Negative (Negative) U Tricyclic Antidepress Negative (Negative) Ur Phencyclidine Scrn Negative (Negative) Ur Amphetamines Screen Negative (Negative) U Methamphetamines Scrn Negative (Negative) Ur MDMA Scrn (Ecstasy) Negative (Negative) U Benzodiazepines Scrn Negative (Negative) Urine Cocaine Screen Negative (Negative) U Marijuana (THC) Screen Negative (Negative) SARS-CoV-2 (PCR) (Negative) 06/19/20 06/19/20 06/19/20 Range/Units 17:07 17:07 17:07 WBC (4.5-11.0) X10^3/uL RBC (4.5-5.9) X10^6/uL Hgb (13.5-17.5) g/dL Hct (41-53) % MCV (80-100) fL MCH (26-34) PG MCHC (30-36) % RDW (11.6-14.8) % Plt Count (150-400) X10^3/uL Neut % (Auto) (50-75) % Lymph % (Auto) (25-40) % [place] % (Auto) (3-14) % Eos % (Auto) (2-4) % Baso % (Auto) (0-2) % Neut # (Auto) (9533-4461) /uL Lymph # (Auto) (2147-4398) /uL [place] # (Auto) (0-900) /uL Eos # (Auto) (0-450) /uL Baso # (Auto) (0-100) /uL PT 20.6 H (10.1-12.7) SECONDS INR 1.8 H (0.9-1.3) APTT 40 H D (26.4-36.2) SECONDS Sodium 130 L (137-145) mmol/L Potassium 3.9 (3.4-5.1) mmol/L Chloride 94 L (98-107) mmol/L Carbon Dioxide 33 H (22-32) mmol/L BUN 14 (9-20) mg/dL Creatinine 0.74 (0.66-1.25) mg/dL Estimated GFR > 60.0 (>60) mL/min BUN/Creatinine Ratio 18.9 (6-22) Glucose 120 H (80-110) mg/dL Lactate 0.9 (0.7-2.1) mmol/L Calcium 8.3 L (8.4-10.2) mg/dL Total Bilirubin 0.6 (0.2-1.3) mg/dL AST 23 (17-59) IU/L ALT 12 (<50) IU/L Alkaline Phosphatase 214 H (38-126) U/L Total Protein 6.5 (6.3-8.2) g/dL Albumin 2.9 L (3.5-5.0) g/dL Globulin 3.6 (1.7-4.1) g/dL Albumin/Globulin Ratio 0.8 L (1.0-2.8) Lipase 27 (23-300) U/L Procalcitonin 0.12 (<0.5) ng/mL Urine Color Urine Appearance Urine pH (4.5-8.0) Ur Specific [place] (1.000-1.035) Urine Protein (Negative) Urine Glucose (UA) (Negative) g/dL Urine Ketones (NEGATIVE) Urine Occult Blood (Negative) Urine Nitrate (Negative) Urine Bilirubin (NEGATIVE) Urine Urobilinogen (0.2) E.U./dL Ur Leukocyte Esterase (NEGATIVE) Urine RBC (0-5/HPF) Urine WBC (0-5/HPF) Amorphous Sediment Urine Bacteria (None) Ur Culture Indicated? U Opiates 300ng/mL cut (Negative) Ur Oxycodone Screen (Negative) Urine Methadone Screen (Negative) Ur Barbiturates Screen (Negative) U Tricyclic Antidepress (Negative) Ur Phencyclidine Scrn (Negative) Ur Amphetamines Screen (Negative) U Methamphetamines Scrn (Negative) Ur MDMA Scrn (Ecstasy) (Negative) U Benzodiazepines Scrn (Negative) Urine Cocaine Screen (Negative) U Marijuana (THC) Screen (Negative) SARS-CoV-2 (PCR) (Negative) 06/19/20 Range/Units 19:15 WBC (4.5-11.0) X10^3/uL RBC (4.5-5.9) X10^6/uL Hgb (13.5-17.5) g/dL Hct (41-53) % MCV (80-100) fL MCH (26-34) PG MCHC (30-36) % RDW (11.6-14.8) % Plt Count (150-400) X10^3/uL Neut % (Auto) (50-75) % Lymph % (Auto) (25-40) % [place] % (Auto) (3-14) % Eos % (Auto) (2-4) % Baso % (Auto) (0-2) % Neut # (Auto) (2863-2000) /uL Lymph # (Auto) (5796-6540) /uL [place] # (Auto) (0-900) /uL Eos # (Auto) (0-450) /uL Baso # (Auto) (0-100) /uL PT (10.1-12.7) SECONDS INR (0.9-1.3) APTT (26.4-36.2) SECONDS Sodium (137-145) mmol/L Potassium (3.4-5.1) mmol/L Chloride (98-107) mmol/L Carbon Dioxide (22-32) mmol/L BUN (9-20) mg/dL Creatinine (0.66-1.25) mg/dL Estimated GFR (>60) mL/min BUN/Creatinine Ratio (6-22) Glucose (80-110) mg/dL Lactate (0.7-2.1) mmol/L Calcium (8.4-10.2) mg/dL Total Bilirubin (0.2-1.3) mg/dL AST (17-59) IU/L ALT (<50) IU/L Alkaline Phosphatase (38-126) U/L Total Protein (6.3-8.2) g/dL Albumin (3.5-5.0) g/dL Globulin (1.7-4.1) g/dL Albumin/Globulin Ratio (1.0-2.8) Lipase (23-300) U/L Procalcitonin (<0.5) ng/mL Urine Color Urine Appearance Urine pH (4.5-8.0) Ur Specific [place] (1.000-1.035) Urine Protein (Negative) Urine Glucose (UA) (Negative) g/dL Urine Ketones (NEGATIVE) Urine Occult Blood (Negative) Urine Nitrate (Negative) Urine Bilirubin (NEGATIVE) Urine Urobilinogen (0.2) E.U./dL Ur Leukocyte Esterase (NEGATIVE) Urine RBC (0-5/HPF) Urine WBC (0-5/HPF) Amorphous Sediment Urine Bacteria (None) Ur Culture Indicated? U Opiates 300ng/mL cut (Negative) Ur Oxycodone Screen (Negative) Urine Methadone Screen (Negative) Ur Barbiturates Screen (Negative) U Tricyclic Antidepress (Negative) Ur Phencyclidine Scrn (Negative) Ur Amphetamines Screen (Negative) U Methamphetamines Scrn (Negative) Ur MDMA Scrn (Ecstasy) (Negative) U Benzodiazepines Scrn (Negative) Urine Cocaine Screen (Negative) U Marijuana (THC) Screen (Negative) SARS-CoV-2 (PCR) Negative (Negative) Urine Dip Bedside Urine Glucose Negative Bedside Urine Bilirubin - Negative Bedside Urine Ketone - Negative Urine Specific [place] 1.015 Bedside Urine Occult Blood +++ Bedside Urine pH 6.0 Bedside Urine Protein - Negative Bedside Urine Urobilinogen - Negative Bedside Urine Nitrite + Positive Bedside Urine Leukocytes + 70 Esterase Imaging Data Chest x-ray: Radiologist's Impression: [address] [id number] ReportSigned Patient: Josesito Whyte EMR#: [id number]: 4Acct:[id number]/Sex: 85 / MDate of Service: 06/19/20Loc: EDAccession Number: [id number] Procedure: XR chest 1V Ordering Provider: Lorenzo Robles D.O. PROCEDURE: XR CHEST 1V INDICATIONS: suspected sepsis TECHNIQUE: One view of the chest was acquired. COMPARISON: [facility], CR, XR CHEST 1V, 06/07/2020, 13:00. FINDINGS: Surgical changes and devices: Dual lead left-sided pacemaker. Right-sided PICC line. Overlying monitoring leads. Lungs and pleura: Lungs demonstrate mild diffuse interstitial thickening without focal consolidation. No pleural effusions or pneumothorax. Mediastinum: Mediastinal contours appear normal. Heart size is enlarged, stable. Bones and chest wall: No suspicious bony lesions. Overlying soft tissues appear unremarkable. IMPRESSION: 1. Slight diffuse interstitial thickening is nonspecific, likely accentuated by technique. Interstitial pneumonitis is not excluded. 2. Right-sided PICC line is present. Dictated by: Jannette Dumont M.D. on 06/19/2020 at 18:11 Approved by: Jannette Dumont M.D. on 06/19/2020 at 18:13 CT scan - head: Radiologist's Impression: [address] Scan ReportSigned Patient: Josesito Whyte EMR#: [id number]: 4Acct:[id number]/Sex: 85 / MDate of Service: 06/19/20Loc: EDAccession Number: [id number] Procedure: CT head/brain wo con Ordering Provider: Lorenzo Robles D.O. PROCEDURE: CT HEAD/BRAIN WO CON INDICATIONS: Visual hallucinations TECHNIQUE: Noncontrast 4.5 mm thick angled axial sections acquired from the foramen magnum to the vertex, with coronal and sagittal reformats. For radiation dose reduction, the following was used: automated exposure control, adjustment of mA and/or kV according to patient size. COMPARISON: [facility], CT, CT HEAD/BRAIN WO CON, 04/22/2020, 7:45. FINDINGS: Image quality: Excellent. CSF spaces: Basal cisterns are patent. No extra-axial fluid collections. The ventricles are symmetric in size and shape. Brain: No intracranial bleeds or masses. There is cerebral volume loss for age, with resultant ventricular and sulcal prominence. There are moderate periventricular and deep white matter chronic small vessel ischemic changes. There is intracranial internal carotid artery atherosclerosis. Skull and face: Calvarium and visualized facial bones appear intact, without suspicious lesions. Sinuses: Visualized sinuses and mastoids are clear. IMPRESSION: 1. No CT evidence of acute intracranial process. 2. Age-appropriate cerebral cortical volume loss and chronic microvascular ischemic changes. Dictated by: Jannette Dumont M.D. on 06/19/2020 at 18:24 Approved by: Jannette Dumont M.D. on 06/19/2020 at 18:28 ECG Data Attestation: I personally reviewed and interpreted this ECG as follows: Prior ECG tracings: available for review Interpretation: Rate of 70, pr 288, qrs 184, qtc 507. atrial paced rhythm with prolonged AV, LBBB. 06/07/20, V5/V6 inverted. Otherwise same as 06/07/20. [facility] Narrative Medical decision making narrative: 85 year old male with new visual hallucinations and confusion recently discharged from [place] for osteomyelitis, wash out of his knee. Patient is on vancomycin he is also on apixaban as well as antihypertensive medications. does not know if he had any altered mental status at the other facility but states the changes started last night. Head CT does not show acute findings, chest x-ray shows possible interstitial but lungs are clear. Labs show hyponatremia with anemia platelets are elevated. Patient's renal function is stable, alk-phos is mildly elevated with otherwise normal LFTs and a negative procalcitonin. Patient's urine is suspicious for infection and he does have an indwelling Dalton catheter, for nitrates as well as trace, leuks. He is confused and denies hallucinations but is occassionally having them. He was given pain medication with his back, this may be complicating his current situation. Discharge Plan Departure Patient Disposition: [facility] Clinical Impression: Altered mental status, Acute UTI, Osteomyelitis Prescriptions: No Action tamsulosin 0.4 mg capsule 0.4 mg PO DAILY RF: 0 Eliquis DVT-PE Treat 30D Start 5 mg (74 tabs) tablets,dose pack See Rx Instructions .ROUTE .COMPLEX Qty: 74 RF: 0 lisinopril 5 mg tablet 5 mg PO DAILY Qty: 30 RF: 0 carvedilol [Coreg] 3.125 mg tablet 3.125 mg PO BID Qty: 60 RF: 0 vancomycin-water inject (PEG) 1.25 gram/250 mL Piggyback 1,250 mg IV Q12H 44 Days Qty: 90 RF: 0 Referrals: Fidel Handy MD [Primary Care Provider] -
--- NOTE | 2020-06-19 18:41 | DI.RAD.S_ITS ---
PROCEDURE: XR ABDOMEN MIN 2V INDICATIONS: constipation, altered mental status TECHNIQUE: 2 views of the abdomen were acquired. COMPARISON: [facility], , ABDOMEN 2 VIEW, 05/07/2007, 9:08. FINDINGS: Surgical changes and devices: Dual lead pacemaker leads partially imaged. Bowel: No pneumoperitoneum. Prominent air-filled loops of small bowel with occasional fluid levels. Increased quantity of solid stool in the colon. Soft tissues: No masses; visualized solid organ contours appear normal in size. No suspicious abdominal calcifications. Bones: No suspicious bony abnormalities. Degenerative changes in both hip joints and lower lumbar spine. IMPRESSION: 1. Nonspecific bowel gas pattern with several loops of air-filled distended small bowel. 2. Increased quantity of solid stool throughout the colon without significant rectal obstipation. Dictated by: Jannette Dumont M.D. on 06/19/2020 at 20:08 Approved by: Jannette Dumont M.D. on 06/19/2020 at 20:10
[2020-06-19] MEDS: VANCOMYCIN 1,250 MG/250 ML PIGGYBACK 250 MG IV (19:03)
[2020-06-19] MEDS: HYDROMORPHONE 1 MG INJ IV (19:03)
[2020-06-19] MEDS: APIXABAN 5 MG TABLET PO (19:03)
[2020-06-19 19:48] LABS: COVID19 -Nasal RAPID Negative (Negative)
[2020-06-19 20:43] LABS: UR Morphine/Opiate cutoff 300 Positive (Negative); Ur Creatinine Normal (Normal); Ur Specific Gravity Normal (Normal); Urine Amphetamines Negative (Negative); Urine Barbiturates Negative (Negative); Urine Benzodiazepines Negative (Negative); Urine Cocaine Negative (Negative); Urine MDMA Negative (Negative); Urine Methadone Negative (Negative); Urine Methamphetamines Negative (Negative); Urine Oxycodone Negative (Negative); Urine Phencyclidine Negative (Negative); Urine Tetrahydrocannabinol Negative (Negative); Urine Tricyclic Antidepressant Negative (Negative); Urine pH Normal (Normal)
== END 2020-06-19 22:45 | disposition short-term general hospital (02) ==
PROVIDERS: Emergency Medicine; Emergency Provider Emergency Medicine; PCP Family Medicine
DX: R41.82 Altered mental status, unspecified (principal); R44.1 Visual hallucinations; N39.0 Urinary tract infection, site not specified; M86.9 Osteomyelitis, unspecified; Z20.822 Contact with and (suspected) exposure to COVID-19; E87.1 Hypo-osmolality and hyponatremia; D64.9 Anemia, unspecified; D47.3 Essential (hemorrhagic) thrombocythemia
CPT/HCPCS: 36415; 70450; 71045; 74019; 80053; 80305; 81001; 81003; 83605; 83690; 84145; 85025; 85610; 85730; 87040; 87077; 87086; 87186; 87635; 93005; 96365; 96367; 96375; 99284; C9803; J1170